=== PATIENT | male | born 2000 | race Two or more races ===

== ENCOUNTER 2022-12-26 15:28 | Outpatient (REF) | payer MEDICAID, SELFPAY ==
[2022-12-26 17:20] LABS: Hematocrit 43.7 % (42.0-52.0); Hemoglobin 14.3 g/dl (14.0-18.0); Mean Corpuscular HGB Conc 32.7 g/dl (31.0-36.0); Mean Corpuscular Hemoglobin 27.5 pg (27.0-33.0); Mean Platelet Volume 9.1 fL (9.4-12.4); Platelet Count 333 X10*3/uL (160-400); Red Cell Distribution Width 13.2 % (11.0-16.0); White Blood Count 4.9 X10*3/uL (4.8-10.8)
[2022-12-26 17:58] LABS: C Reactive Protein 1.34 mg/dL (< or = 0.50)
[2022-12-26 18:14] LABS: TSH reflex Free T4 0.64 uIU/mL (0.32-4.0)
[2022-12-26 18:29] LABS: Vitamin B12 608 pg/mL (200-900)
[2022-12-31 14:42] LABS: H Pylori Breath Test Negative (Negative)
[2023-01-02 16:38] LABS: Vitamin D 25-OH, D2 <4 ng/mL; Vitamin D 25-OH, D3 7 ng/mL; Vitamin D 25-OH, Total 7 ng/mL (30-100)
== END 2022-12-26 15:29 | disposition home or self-care (01) ==
LOC: HO.LAB 15:28
PROVIDERS: PCP Family Medicine; Referring Provider Family Medicine; Visit Provider Nurse Practitioner Family
DX: K58.2 Mixed irritable bowel syndrome (principal); K21.9 Gastro-esophageal reflux disease without esophagitis; E55.9 Vitamin D deficiency, unspecified; R14.0 Abdominal distension (gaseous); K64.9 Unspecified hemorrhoids; Z11.0 Encounter for screening for intestinal infectious diseases
CPT/HCPCS: 36415; 82306; 82607; 82746; 83013; 84443; 85027; 86140; 99202

== ENCOUNTER 2023-01-08 18:07 | Outpatient (REF) | payer MEDICAID, SELFPAY ==
[2023-01-08 19:58] LABS: Leukocytes Stool Qualitative NEGATIVE (NEGATIVE)
[2023-01-09 08:57] LABS: CDiff Gene PCR NEGATIVE (Negative)
[2023-01-09 09:38] LABS: Adenovirus F 40/41 Not Detected (Not Detect.); Astrovirus Not Detected (Not Detect.); Campylobacter Not Detected (Not Detect.); Cryptosporidium Not Detected (Not Detect.); Cyclospora cayetanensis Not Detected (Not Detect.); E. coli EAEC Not Detected (Not Detect.); E. coli EPEC Not Detected (Not Detect.); E. coli ETEC Not Detected (Not Detect.); E. coli STEC Not Detected (Not Detect.); Entamoeba histolytica Not Detected (Not Detect.); Giardia lamblia Not Detected (Not Detect.); Norovirus GI/GII Not Detected (Not Detect.); Plesiomonas shigelloides Not Detected (Not Detect.); Rotavirus A Not Detected (Not Detect.); Salmonella Not Detected (Not Detect.); Sapovirus Not Detected (Not Detect.); Shigella sp./EIEC Not Detected (Not Detect.); Vibrio Not Detected (Not Detect.); Vibrio Cholerae Not Detected (Not Detect.); Yersinia enterocolitica Not Detected (Not Detect.)
[2023-01-16 20:38] LABS: Calprotectin, Fecal 2920 mcg/g
== END 2023-01-08 18:08 | disposition home or self-care (01) ==
LOC: HO.LNP 18:07
PROVIDERS: Nurse Practitioner; Visit Provider Nurse Practitioner Family
DX: K62.5 Hemorrhage of anus and rectum (principal); R79.82 Elevated C-reactive protein (CRP); R19.7 Diarrhea, unspecified
CPT/HCPCS: 83993; 87177; 87209; 87493; 87507; 89055

== ENCOUNTER 2023-01-09 11:37 | Outpatient (REF) | payer MEDICAID, SELFPAY ==
[2023-01-09 12:53] LABS: Hematocrit 40.6 % (42.0-52.0); Hemoglobin 13.3 g/dl (14.0-18.0); Mean Corpuscular HGB Conc 32.8 g/dl (31.0-36.0); Mean Corpuscular Hemoglobin 27.8 pg (27.0-33.0); Mean Corpuscular Volume 84.9 fL (80.0-98.0); Mean Platelet Volume 9.3 fL (9.4-12.4); Platelet Count 305 X10*3/uL (160-400); Red Blood Count 4.78 X10*6/uL (4.60-5.80); Red Cell Distribution Width 13.4 % (11.0-16.0); White Blood Count 4.9 X10*3/uL (4.8-10.8)
[2023-01-09 13:14] LABS: Lipase 12 U/L (8-78)
[2023-01-14 11:39] LABS: Transglutaminase Ab IgG <1.0 U/mL; Transglutaminase IgA <1.0 U/mL
== END 2023-01-09 11:38 | disposition home or self-care (01) ==
LOC: HO.LAB 11:37
PROVIDERS: PCP Family Medicine; Visit Provider Nurse Practitioner Family
DX: R10.9 Unspecified abdominal pain (principal); R79.82 Elevated C-reactive protein (CRP); K21.9 Gastro-esophageal reflux disease without esophagitis; K62.5 Hemorrhage of anus and rectum; R19.7 Diarrhea, unspecified; K64.9 Unspecified hemorrhoids; E66.01 Morbid (severe) obesity due to excess calories
CPT/HCPCS: 36415; 83690; 85027; 86364; 99212

== ENCOUNTER 2023-01-23 09:06 | Outpatient (REF) | payer MEDICAID, SELFPAY ==
--- NOTE | ~2023-01-23 | CT_ITS ---
EXAMINATION: CT ABDOMEN AND PELVIS WITH CONTRAST CLINICAL INFORMATION: Abdominal pain COMPARISON: None TECHNIQUE: Multidetector volumetric images were obtained from the superior aspect of the liver through the pubic symphysis following administration 85 mL of Omnipaque 350 intravenous contrast. Sagittal and coronal reformatted images were obtained on the technologist's workstation. Oral contrast: Yes This CT examination was performed using dose optimization techniques as appropriate, variously including the following: *Automated exposure control *Adjustment of mA and/or kV according to patient size (this includes techniques or standardized protocols for targeted exams where dose is matched to indication/reason for exam; i.e. extremities or head) *Use of iterative reconstruction technique DLP: 675 mGy-cm FINDINGS: LUNG BASES: The visualized lung bases are unremarkable. LIVER, GALLBLADDER, AND BILIARY TREE: The liver is normal in size, shape, and attenuation. No focal hepatic lesion or biliary ductal dilatation is present. The gallbladder is unremarkable with no evidence of radiopaque gallstones, gallbladder wall thickening, or obvious pericholecystic inflammatory changes. PANCREAS: There is a small 2 mm low-attenuation lesion in the body of the pancreas. This may represent a small cyst, axial image 27 series 3 coronal reconstructed image 46. The pancreas is otherwise normal. SPLEEN: Unremarkable. ADRENAL GLANDS: Unremarkable. KIDNEYS AND URETERS: The kidneys are normal in size, shape, and attenuation. No hydronephrosis, hydroureter, or calculi seen. No perinephric stranding. BLADDER: Not optimally distended. GASTROINTESTINAL TRACT: There is question of mild wall thickening of the proximal small bowel in the left abdomen. The small and large bowel are otherwise unremarkable. The appendix is unremarkable. No ascites. ABDOMINAL WALL: No significant hernia is appreciated. LYMPH NODES: There are prominent small bowel mesentery lymph nodes. Larger lymph nodes are upper normal in size. No other adenopathy. No ascites. VASCULAR: Unremarkable. PELVIC VISCERA: Unremarkable. OSSEOUS STRUCTURES: Unremarkable. CT/CT abdomen pelvis w IV con IMPRESSION: Question mild wall thickening of the proximal small bowel in the left abdomen. Prominent small bowel mesentery lymph nodes. Question small 2 mm cyst in the body of the pancreas. This could be further evaluated with MR with MRCP. Fleischner guidelines were followed.
[2023-01-23] MEDS: Barium Sulfate Oral (Vanilla) 450 ML ORAL.SUSP 900 ML PO (11:40)
[2023-01-23] MEDS: iohexoL 350 MG/ML 100 ML INFUS..BTL 85 ML IV (11:40)
== END 2023-01-23 09:07 | disposition home or self-care (01) ==
LOC: HO.CT 09:06
PROVIDERS: PCP Family Medicine; Visit Provider Nurse Practitioner Family
DX: R10.9 Unspecified abdominal pain (principal); R19.7 Diarrhea, unspecified; R79.82 Elevated C-reactive protein (CRP)
CPT/HCPCS: 74177; Q9967

== ENCOUNTER 2023-01-26 14:19 | Outpatient (REF) | payer MEDICAID, SELFPAY ==
[2023-01-26 16:26] LABS: Blood Urea Nitrogen 13 mg/dL (9-16); Estimated Glomerular Filt Rate > 60
[2023-01-27 14:07] LABS: HBS Num1 1.15 mIU/mL (0-7.99); HBc Num1 0.09 S/CO (0.00-0.79); HIV AB/AG Nonreactive (Nonreactive); HIV Num 1 0.06 S/CO (0.00-0.99); Hepatitis A Antibody IgM 0.15 Index (0-0.79); Hepatitis B Core Antibody Nonreactive (Nonreactive); Hepatitis B Surface Antigen Negative (Negative); ~HepC Num1 0.13 S/CO (0.00-0.79); ~Hepatitis A Antibody IgM Nonreactive (Nonreactive); ~Hepatitis B Surface Antibody NONREACTIVE (Nonreactive); ~Hepatitis C Antibody Nonreactive (Nonreactive)
[2023-01-28 14:14] LABS: TS Negative Control Passed; TS Panel A 0; TS Panel B 6; TS Positive Control Acceptable; TSpotTB Borderline (Negative)
== END 2023-01-26 14:20 | disposition home or self-care (01) ==
LOC: HO.LAB 14:19
PROVIDERS: PCP Family Medicine; Visit Provider Nurse Practitioner Family
DX: Z11.4 Encounter for screening for human immunodeficiency virus [HIV] (principal); R10.11 Right upper quadrant pain; K62.5 Hemorrhage of anus and rectum; R19.7 Diarrhea, unspecified; R79.89 Other specified abnormal findings of blood chemistry; R79.82 Elevated C-reactive protein (CRP)
CPT/HCPCS: 36415; 82565; 84520; 86481; 86704; 86706; 86709; 86803; 87340; 87389; 99212

== ENCOUNTER 2023-02-03 09:57 | Day surgery (SDC) | payer MEDICAID, SELFPAY ==
[2023-01-29 12:43] VITALS: BMI 37.4
[2023-02-03 10:34] VITALS: BP 118/77; PULSE 68; RESP 18; TEMP 36.6; BMI 37.3
--- NOTE | 2023-02-03 10:38 | MHC.SHP ---
Pre-Procedural Eval Section A Date of Service: 02/03/23 Section B Chief Complaint: Elevated C-reactive protein (CRP),Disease of intes Details of Present Illness: diarrhea Relevant Family History (Specify if Yes): No Relevant Social History: None Present Medications: see Short Stay Collaborative assessment Medical History: Significant History (Asthma Obesity) History of Previous Operations: Relevant previous surgery/procedure and date(s) (History of hand surgery S/P eye surgery) Allergies: Allergies Allergy/AdvReac Type Severity Reaction Status Date / Time bees Allergy Severe Anaphylaxis Uncoded 01/29/23 12:48 Review of Systems Sugical H&P ROS: Negative: Constitution, Cardiovascular, Respiratory, Neurological, Psychiatric, Hem-Onc, Allergic/Immunologic, Gastrointestinal, Genitourinary, Musculoskeletal, Integumentary, Endocrine and Eyes/Ears/Nose/Throat Exam Surgical H&P Exam: Normal: HEENT, Normal: Heart, Normal: Lungs, Normal: Extremities, Normal: Abdomen, Normal: Skin and Normal: Neurological Plan Diagnosis/Plan: Unchanged I have reviewed the history and physical and performed a pertinent physical examination on my patient. No changes have occurred unless specified. Time Spent With Patient Time: Total time managing care of this patient today ____ minutes.
[2023-02-03] MEDS: Lactated Ringers 1,000 ML 50 ML IVCONT (11:07)
--- NOTE | 2023-02-03 11:33 | HO.ANESPROP2 ---
HPI - Anesthesia Eval Consult details Narrative: 22 M fir egd/colo PMFSH Active Problems Active Problems: All Active Problems (Updated 01/29/23 @ 12:37 by Anne Marie Ashley RN) Morbid obesity (Acute) Hemorrhoids (Acute) Diarrhea (Acute) Rectal bleeding (Acute) Elevated C-reactive protein (CRP) (Acute) Past Medical History Medical History Asthma Obesity Family History Family History Mother HTN (hypertension) Diabetes Anemia Maternal Grandmother Anemia Diabetes HTN (hypertension) Lung cancer Family history of problems with anesthesia: No Surgical History Surgical History History of hand surgery S/P eye surgery History of Problems with Anesthesia: No Social History Social History Household Members: Significant Other and Children Alcohol intake: never Patient Tobacco Use Status: Never used Tobacco Use of substances other than those prescribed or required for medical reasons: No Are you DNR?: No Advance Directives: No Advance Directives Information Provided: Yes Meds Allergies Allergy/AdvReac Type Severity Reaction Status Date / Time bees Allergy Severe Anaphylaxis Uncoded 01/29/23 12:48 Active Medications: Current Medications Lactated Ringer's (Lr) 1,000 mls @ 50 mls/hr IVCONT .Q20H MELINDA Last Admin: 02/03/23 11:07 Dose: 50 mls/hr Home Medications Medication Instructions Recorded Confirmed Last Taken Type albuterol sulfate 90 mcg/actuation 2 puff inhalation Q4H PRN wheezing 12/26/22 02/03/23 Unknown History aerosol inhaler (Ventolin HFA) blood pressure test kit-large #1 ea 12/26/22 Unknown History fluticasone propionate 110 0 mcg inhalation PRN Shortness Of 12/26/22 Unknown History mcg/actuation HFA aerosol inhaler Breath Or Wheezing (Flovent HFA) Exam Exam Date and Time: February 03, 2023 1133 Height,Weight and Vital Signs: Height 6 ft 1 in Weight 283 lb Last Vital Signs Temp 97.9 F 02/03/23 10:34 Pulse 68 02/03/23 10:34 Resp 18 02/03/23 10:34 BP 118/77 02/03/23 10:34 Airway Mallampati Class: I TM Dist: >3cm Neck ROM: Full Loose/Missing/Broken Teeth: No Assessment and Plan Assessment Anesthesia Assessment: Anesthesia Plan Discussed and Chart Reviewed Final Anesthetic Review Family History of Problems with Anesthesia: No History of Problems with Anesthesia: No NPO: Yes ASA Class: II Final Preanesthetic Review: No Changes in Pt Med Stat, Meds/Allgs Chart Reviewed, Consent Obtained/Reviewed and Anes Risks/Benef Reviewed Patient Risk: Intermediate Procedure Risk: Low Anesthetic Plan Anesthetic Plan: MAC: Disposition: Standard PACU
--- NOTE | 2023-02-03 11:33 | W.PM.OPN ---
Operative Note Operative Note Date of Service: 02/03/23 Narrative: Operative Information Procedure Description: EGD, Colonoscopy Indication: diarrhea Anesthesia: MAC FLEXIBLE TRANSORAL UPPER GASTROINTESTINAL ENDOSCOPY AND COLONOSCOPY PROCEDURE NOTE UPPER ENDOSCOPY Consent: Indications for the procedure and potential complications of bleeding, perforation, reaction to medications and missed diagnosis were discussed with the patient and informed consent was obtained. Instrument: Olympus GIF H 190 J mid size upper endoscope Monitoring: Vital signs and clinical assessment, continuous EKG monitoring, Pulse oximetry, Carbon Dioxide monitoring and blood pressure monitoring were done throughout the procedure. Procedure: The patient was placed in the left lateral decubitis position and pre-procedure medications were administered and a bite block was placed. The endoscope was inserted into the mouth and advanced under direct vision to the third part of duodenum. A careful inspection was made as the upper endoscope was withdrawn including a retroflexed examination of the proximal stomach; Findings and interventions are described below. Findings: Larynx:normal Esophagus: GE junction at 40 cm, diaphragm hiatus at 42 cm, consistent with 2 cm sliding hiatal hernia, islands of salmon pink tissue noted suspicious for barretts esophagus, bx taken Stomach: Patchy erythema. Biopsies were obtained. Grade 2 flap valve on retroflexed examination of the cardia. Duodenum: Normal bulb and descending duodenum, bx taken Intervention: Biopsies as noted above COLONOSCOPY Instrument: Olympus variable stiffness pediatric scope 190L Colonoscopy Monitoring: Vital signs and clinical assessment, continuous EKG monitoring, Pulse oximetry, Carbon Dioxide monitoring and blood pressure monitoring were done throughout the procedure. Colon withdrawal time was 13 minutes. Procedure: The patient was placed in the left lateral decubitis position and pre-procedure medications were administered. After a digital rectal examination of the ano-rectum, the video colonoscope was inserted into the rectum and advanced through the colon to the cecum/TI. The colonoscope was slowly withdrawn in a retrograde panoramic fashion and the colon mucosa was carefully examined including a retroflexed view of the rectum. Findings and interventions are described below. Procedure Difficulty: Findings: Terminal Ileum- moderate severe erosive ileitis, bx taken Patchy erythema in colon with mild edema, bx taken from right colon, transverse/left and rectum Cecum:normal Ascending Colon: normal Transverse Colon -normal Descending Colon:normal Sigmoid Colon: normal Rectum: Retroflexion with small internal hemorrhoids, grade I, granular mucosa with edema and micro abscesses, Anorectum - normal Colon preparation: [place] Bowel Preparation Scale Right colon; 2 Transverse colon: 2 Left colon; 1-2 (0 = Unprepared colon segment with mucosa not seen due to solid stool that cannot be cleared. 1 = Portion of mucosa of the colon segment seen, but other areas of the colon segment not well seen due to staining, residual stool and/or opaque liquid. 2 = Minor amount of residual staining, small fragments of stool and/or opaque liquid, but mucosa of colon segment seen well. 3 = Entire mucosa of colon segment seen well with no residual staining, small fragments of stool or opaque liquid) Impression and Post Procedure Diagnosis: Endoscopy Findings: gastritis hiatal hernia possible barretts esophagus Colonoscopy Findings: erosive ileitis patchy colitis internal hemorrhoids Plan: Await Pathology results, appearances seem most consistent with crohns disease Repeat Colonoscopy for screening aged 45 or earlier if clinically indicated High fiber diet leaflet avoid straining at stool, epsom salts and sitz bath, anusol supps or cream can discuss treatment options with him, can start with budesonide and transition to biologic or imuran/6 MP. Pentasa is another option. Above findings were reviewed with the patient and relevant handouts were provided if indicated.
[2023-02-03 12:31] VITALS: BP 130/72; PULSE 75; RESP 16; TEMP 36.6; O2SAT 100
[2023-02-03 12:46] VITALS: BP 147/92; PULSE 76; RESP 16; TEMP 36.6; O2SAT 97
[2023-02-03 13:01] VITALS: BP 147/91; PULSE 69; RESP 16; TEMP 36.3; O2SAT 99
[2023-02-03 14:53] LABS: CDiff Gene PCR NEGATIVE (Negative)
[2023-02-03 15:15] LABS: Adenovirus F 40/41 Not Detected (Not Detect.); Astrovirus Not Detected (Not Detect.); Campylobacter Not Detected (Not Detect.); Cryptosporidium Not Detected (Not Detect.); Cyclospora cayetanensis Not Detected (Not Detect.); E. coli EAEC Not Detected (Not Detect.); E. coli EPEC Not Detected (Not Detect.); E. coli ETEC Not Detected (Not Detect.); E. coli STEC Not Detected (Not Detect.); Entamoeba histolytica Not Detected (Not Detect.); Giardia lamblia Not Detected (Not Detect.); Norovirus GI/GII Not Detected (Not Detect.); Plesiomonas shigelloides Not Detected (Not Detect.); Rotavirus A Not Detected (Not Detect.); Salmonella Not Detected (Not Detect.); Sapovirus Not Detected (Not Detect.); Shigella sp./EIEC Not Detected (Not Detect.); Vibrio Not Detected (Not Detect.); Vibrio Cholerae Not Detected (Not Detect.); Yersinia enterocolitica Not Detected (Not Detect.)
== END 2023-02-03 13:29 | disposition home or self-care (01) ==
PROVIDERS: PCP Family Medicine; Visit Provider Internal Medicine Gastroenterology
PROC: (CPT 45380; principal; 2023-02-03 11:10)
DX: K29.70 Gastritis, unspecified, without bleeding (principal); K44.9 Diaphragmatic hernia without obstruction or gangrene; K52.89 Other specified noninfective gastroenteritis and colitis; R19.7 Diarrhea, unspecified; K64.8 Other hemorrhoids; R79.82 Elevated C-reactive protein (CRP)
CPT/HCPCS: 45380; 43239; 87493; 87507; 88305; 88342

== ENCOUNTER → 2023-02-17 15:18 | Outpatient (BNVA) | payer MEDICAID, SELFPAY | PROVIDERS: PCP Family Medicine; Visit Provider Nurse Practitioner Family | DX: K50.80 Crohn's disease of both small and large intestine without complications (principal); R19.7 Diarrhea, unspecified; K62.5 Hemorrhage of anus and rectum | CPT/HCPCS: 99212 ==

== ENCOUNTER 2023-07-16 16:02 | Outpatient (REF) | payer MEDICAID, SELFPAY ==
--- NOTE | 2023-07-16 16:06 | EMG_ITS ---
Please see EMG / Nerve Conduction Report. MTDD
--- NOTE | 2023-07-16 16:08 | P.EMGPH_ITS ---
Physiatry - EMG/NCS EMG/NCS Chief complaint: Left hand/arm numbness for 2 weeks only. Patient denied neck pain. Reason for referral: Evaluate for Carpal Tunnel Syndrome Referred by: Dr. Woodward Procedure done: left upper extremity NCS/EMG Precautions and/or limitations: None The limb temperature was monitored continuously and remained between 32-36 degrees C during the performance of the NCS. Nerve Conduction Studies Anti Sensory Summary Table ?Stim Site NR Onset (ms) Norm Onset (ms) Peak (ms) Norm Peak (ms) O-P Amp (?V) Norm O-P Amp Site1 Site2 Delta-0 (ms) Dist (cm) Alex (m/s) Norm Alex (m/s) Left Median Anti Sensory (2nd Digit) Wrist ? 1.6 2.4 <3.6 28.6 >10 Wrist 2nd Digit 1.6 14.0 88 Left Radial Anti Sensory (Thumb) Forearm ? 1.6 2.0 <3.1 20.8 Forearm Thumb 1.6 0.0 Left Ulnar Anti Sensory (5th Digit) Wrist ? 2.6 3.0 <3.7 24.6 >15.0 Wrist 5th Digit 2.6 14.0 54 Motor Summary Table ?Stim Site NR Onset (ms) Norm Onset (ms) O-P Amp (mV) Norm O-P Amp A iAmp (mV) Amp (1st) (%) Site1 Site2 Delta-0 (ms) Dist (cm) Alex (m/s) Norm Alex (m/s) Left Median Motor (Abd Poll Brev) Wrist ? 3.7 <3.9 3.9 >4.5 4.9 100.0 Elbow Wrist 4.4 24.0 55 >45 Elbow ? 8.1 2.6 3.4 66.7 Left Ulnar Motor (Abd Dig Minimi) Wrist ? 2.3 <3.0 6.6 >5 8.2 100.0 B Elbow Wrist 4.0 24.0 60 A >45 B Elbow ? 6.3 2.2 2.8 33.3 A Elbow B Elbow 1.1 10.0 91 >45 A Elbow ? 7.4 1.9 2.7 28.8 EMG ?Side Muscle Nerve Root Ins Act Fibs Psw Amp Dur Poly Recrt Int Pat Comment Left 1stDorInt Ulnar C8-T1 Nml Nml Nml Nml Nml 0 Nml Complete Left FlexCarRad Median C6-7 Nml Nml Nml Nml Nml 0 Nml Complete Left Biceps Musculocut C5-6 Nml Nml Nml Nml A Nml 0 Nml Complete Left Triceps Radial C6-7-8 Nml Nml Nml Nml Nml 0 Nml Complete Left Deltoid Axillary C5-6 Nml Nml Nml Nml Nml 0 Nml Complete Paraspinal EMG ?Side Muscle Nerve Root Ins Act Fibs Psw Comment Left Cervical Upper Rami Nml Nml Nml Left Cervical Mid Rami Nml Nml Nml Left Cervical Lower Rami Nml Nml Nml FINDINGS: Left median motor nerve showed normal distal latency, small amplitude and normal conduction velocity. Possible Rodriguez Martha anastomosis seen, which is a normal anatomic variant. All other nerves tested were within normal. Concentric needle EMG was performed in selected muscles of the left upper extremity and cervical paraspinals. Study did not reveal signs of electric abnormalities as shown in the table below. IMPRESSION: 1. This is an abnormal study. 2. Possible left median neuropathy affecting motor fibers only versus acute cervical radiculopathy. CLINICAL COMMENT: Since symptoms have only been for 2 weeks, normal findings on NCS/EMG are likely to be found if complete Wallerian degeneration has not happened. If symptoms persists, please send for repeat NCS/EMG. Further clinical correlation recommended. Thank you for your kind referral. Suzanne Reynolds MD, KIMBERLY Board Certified, [place] [employer] and Rehabilitation (ABPMR) Board Certified, [place] Board of Electrodiagnostic Medicine (ABEM)
== END 2023-07-16 16:03 | disposition home or self-care (01) ==
LOC: HO.NEURO 16:02
PROVIDERS: PCP Family Medicine; Visit Provider Family Medicine
DX: R20.0 Anesthesia of skin (principal); R20.2 Paresthesia of skin
CPT/HCPCS: 95860; 95886; 95907; 95909

== ENCOUNTER → 2023-07-16 16:02 | Outpatient (BNV) | payer MEDICAID, SELFPAY | PROVIDERS: PCP Family Medicine; Visit Provider Physical Medicine & Rehabilitation | DX: G56.12 Other lesions of median nerve, left upper limb (principal); R20.0 Anesthesia of skin; R20.2 Paresthesia of skin | CPT/HCPCS: 95886; 95909 ==

== ENCOUNTER 2023-08-12 14:59 | Outpatient (AMB) | payer MEDICAID, SELFPAY ==
--- NOTE | 2023-08-12 15:06 | A.OFFVIS_ITS ---
Intake Vital Signs 08/12/23 15:08 Height 6 ft 1 in Weight 295 lb BMI 38.9 BP 142/93 H Blood Pressure Location Lt brachial Position Sitting Pulse 86 Intake Visit Reasons: discuss crohns tx Intake Note: Patient follow up for Crohns Patient cc: abdominal pain, and rectal bleeding. Denies any other GI issues. 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 Tolerating with desonide well. Rectal bleeding Crohn disease Diagnosed with Crohn's disease. Patient is tolerating budesonide well. Discussed with patient diet choices. I will see patient in 1 month, sooner on as needed basis. Patient is agreeable to this plan and verbalizes understanding of instructions. He was given the opportunity to ask questions and all questions answered. ? Thank you for allowing me to participate his care Plan Orders Orders [facility] Today K50.90 TODAY'S VISIT Patient is here today for follow-up. Patient has missed his appointment in February. Patient was diagnosed with Crohn's disease back in January and was placed on budesonide for 3 months with taper each month. Patient was placed on with dust mite right after colonoscopy by Dr. James. Patient reports that he was feeling better so he did not make to his appointment. Somehow patient reports that pharmacy filled his script even though was only ordered for 3 months with no refill. Patient reports that he stopped taking it only few weeks ago. His symptoms of abdominal discomfort, cramping and occasional diarrhea with blood tinged stool started again. Patient is here today to follow-up and start treatment for Crohn's. Patient did not had CT enterography to rule out involvement in small bowel. Procedure was canceled and will be booked today. Patient denies any nausea or vomiting. Patient did gain 10 lb since last visit most likely due to glucocorticoid therapy. [facility] Medical History Asthma Obesity Surgical History History of hand surgery S/P eye surgery Family History Mother HTN (hypertension) Diabetes Anemia Maternal Grandmother Anemia Diabetes HTN (hypertension) Lung cancer Social History Household Members: Significant Other and Children Alcohol intake: never Patient Tobacco Use Status: Never used Tobacco Review of Systems Const Denies weight gain and Denies weight loss ENT Reports no additional complaints, Denies dysphagia and Denies odynophagia Card Reports no additional complaints Resp Reports no additional complaints GI Reports abdominal pain, Denies belching, Denies melena, Denies bloating, Reports hematochezia, Denies change in bowel habits, Denies dysphagia, Denies excessive flatus, Denies dyspepsia, Denies heartburn, Denies diarrhea, Reports loose stools, Denies nausea, Denies odynophagia and Denies vomiting Reports no additional complaints Musc Reports no additional complaints Neuro Reports no additional complaints Psych Reports no additional complaints Endo Reports no additional complaints Physical Exam Vital Signs: Last Vital Signs Pulse 86 08/12/23 15:08 BP 142/93 H 08/12/23 15:08 BMI result Body Mass Index 38.9 Const General: healthy appearing, no acute distress and well developed Nutritional Appearance: obese Orientation/consciousness: patient oriented x3 HEENT Head: Yes normal to inspection, Yes normocephalic and Yes atraumatic Face and sinus: Yes normal facial exam Mouth: Normal oral and palatal mucosa present Throat: Yes posterior oropharynx normal, Yes tonsils normal and Yes uvula midline Eyes General: appearance normal, both eyes and all related structures Neck Neck: Yes normal visual inspection, Yes full ROM and Yes trachea midline Thyroid: Thyroid normal Resp Effort & Inspection: normal respiratory effort, able to speak in complete sentences, no tracheal deviation and symmetric chest movement Auscultation: clear to auscultation bilaterally Cardio Rate: regular rate Heart sounds: S1 normal heart sound present and S2 normal heart sound present GI Inspection: Yes normal to inspection, No distended and Yes obesity Palpation (GI): Soft to palpation, not firm, nontender and No hepatosplenomegaly present Auscultation: normal bowel sounds General: Yes no CVA tenderness Back/Spine/Pelvis Back: no CVA tenderness Skin General skin exam: elasticity normal, turgor normal and dry skin Neuro General: patient oriented x3 Psych Appearance: grossly normal Mental Status: mental status grossly normal Speech and movement: Normal speech and movement present Assessment & Plan Assessment & Plan (1) Crohn disease: Code(s): K50.90 - Crohn's disease, unspecified, without complications Qualifiers: Gastrointestinal tract location: large intestine Digestive disease complication type: with rectal bleeding Qualified Code(s): K50.111 - Crohn's disease of large intestine with rectal bleeding Plan: Will order CT enterography again. Will start patient on sulfasalazine twice a day. Patient will be started on 1 g twice a day. Patient reports that he is working and he cannot commit to take it 3 times a day. Patient does not want any injectables. I offered Humira and other biologics, however he does not want to have any injections. Patient will return in in 5 weeks to reassess. He will call our office if he will continue have rectal bleed and abdominal pain and discomfort. Discussed with patient the importance of staying on this medication and adhering to diet regimen. Patient is present during visit. Both patient and his are agreeable to this plan and verbalize understanding of instructions. They were given the opportunity to ask questions and all questions answered. Thank you for allowing me to participate in his care Orders: Orders CT enterography 08/12/23 K50.90 - Crohn's disease, unspecified, without c omplications, R79.82 - Elevated C-reactive protein (CRP) Medications: New sulfasalazine give with food (meal/snack) 1 g (2 x 500 mg) PO BID 120 tabs 2RF K50.90 - Crohn's disease, unspecified, without complications Coding Level of Care Code Est Pt Level 4 (06883) Diagnoses Crohn's disease of large intestine with rectal bleeding K50.111 Gastrointestinal tract location: large intestine Digestive disease complication type: with rectal bleeding Time Spent (min) 40 Comment 25 minutes spent with patient and additional 15 minutes spent reviewing his records
[2023-08-12 15:08] VITALS: BP 142/93; PULSE 86; BMI 38.9
== END 2023-08-12 15:55 | disposition home or self-care (01) ==
PROVIDERS: PCP Family Medicine; Visit Provider Nurse Practitioner Family
DX: K50.111 Crohn's disease of large intestine with rectal bleeding (principal)
CPT/HCPCS: 99214

== ENCOUNTER → 2023-08-12 14:59 | Outpatient (BNVA) | payer MEDICAID, SELFPAY | PROVIDERS: PCP Family Medicine; Visit Provider Nurse Practitioner Family | DX: K50.111 Crohn's disease of large intestine with rectal bleeding (principal) | CPT/HCPCS: 99212 ==

== ENCOUNTER 2023-09-14 14:29 | Outpatient (REF) | payer MEDICAID, SELFPAY ==
--- NOTE | ~2023-09-14 | CT_ITS ---
EXAMINATION: CT ENTEROGRAPHY ABDOMEN AND PELVIS WITH CONTRAST CLINICAL INFORMATION: Crohn's disease COMPARISON: Previous CT of the abdomen and pelvis December 2022 TECHNIQUE: Study performed with oral VoLumen (1350 mL) and 480 mL of water to distend the abdomen. The patient was injected with 85 mL Omnipaque 350 intravenous contrast which was administered without adverse effect. Coronal and sagittal reformatted images were obtained at the technologist's workstation. This CT examination was performed using dose optimization techniques as appropriate, variously including the following: *Automated exposure control *Adjustment of mA and/or kV according to patient size (this includes techniques or standardized protocols for targeted exams where dose is matched to indication/reason for exam; i.e. extremities or head) *Use of iterative reconstruction technique DLP: 823 mGy-cm FINDINGS: GASTROINTESTINAL FINDINGS: Stomach: Well-distended and normal in appearance. Small intestine: There is again question of mild wall thickening and enhancement of a short segment of the proximal small bowel in the left upper quadrant, for example axial image 36-46 series 7 and coronal reconstructed image 32 series 4. Is question of slight tethering of loops of small bowel. Appearance is questionable for active inflammatory bowel disease or other cause of enteritis. There is prominent fat in the wall of the terminal ileum for example coronal reconstructed image 39-45 series 4. This is a nonspecific finding but can be seen in changes from old inflammatory enteritis. Large intestine: Well-distended and normal in appearance. No perirectal changes demonstrated. The appendix is normal. Additional findings: No abnormal enhancement of the vasa recta. Small bowel mesentery lymphadenopathy which appears prominent but decreased from December 2022. No abdominal abscess or fistulous tract demonstrated. ABDOMINAL AND PELVIC CT FINDINGS: Liver, gallbladder, biliary tract: Normal Pancreas: Question small cyst in the body of the pancreas measuring 2 to 3 mm axial image 29 series 7. This is stable. Spleen: Normal Adrenal glands and kidneys: Normal Ureters and bladder: Normal Lymphovascular structures: There are prominent small bowel mesentery lymph nodes. These appear decreased in size from December 2022 exam. No ascites. Normal vascular structures. Bones: Normal Lung bases: Normal. Small umbilical hernia containing fat. CT/CT enterography IMPRESSION: Mild wall thickening and mucosal enhancement and slightly tethered loops of proximal small bowel in the left upper quadrant questionable for active enteritis or inflammatory bowel disease. There is small bowel mesentery lymphadenopathy which is prominent however decreased from December 2022 exam. Question small cyst in the body of the pancreas measuring 2 x 3 mm. Again this could be better evaluated with MR of the pancreas with MRCP if clinically indicated.
[2023-09-14] MEDS: Sorbitol/Mannit/Xanth Imaging 500 ML LIQUID 1500 ML PO (17:14)
[2023-09-14] MEDS: iohexoL 350 MG/ML 100 ML INFUS..BTL 85 ML IV (17:14)
== END 2023-09-14 14:30 | disposition home or self-care (01) ==
LOC: HO.CT 14:29
PROVIDERS: PCP Family Medicine; Visit Provider Nurse Practitioner Family
DX: K50.90 Crohn's disease, unspecified, without complications (principal); R79.82 Elevated C-reactive protein (CRP)
CPT/HCPCS: 74177; Q9967

== ENCOUNTER 2023-09-16 16:01 | Outpatient (AMB) | payer MEDICAID, SELFPAY ==
--- NOTE | 2023-09-16 16:09 | MHC.OFFVIS ---
Intake Vital Signs 09/16/23 16:10 Height 6 ft 1 in Weight 284 lb 6.341 oz BMI 37.5 BP 143/82 H Blood Pressure Location Lt brachial Position Sitting Pulse 100 Intake Visit Reasons: 5 week follow up Intake Note: Stefan presents in the office as a 5 week follow up. CC: Ct scan a few days ago - just here for the results. Allergies bees Allergy (Severe, Uncoded 09/16/23 16:11) Anaphylaxis HPI 5 week follow up HPI Details LAST VISIT Crohn disease Will order CT enterography again. Will start patient on sulfasalazine twice a day. Patient will be started on 1 g twice a day. Patient reports that he is working and he cannot commit to take it 3 times a day. Patient does not want any injectables. I offered Humira and other biologics, however he does not want to have any injections. Patient will return in in 5 weeks to reassess. He will call our office if he will continue have rectal bleed and abdominal pain and discomfort. Discussed with patient the importance of staying on this medication and adhering to diet regimen. Patient is present during visit. Both patient and his are agreeable to this plan and verbalize understanding of instructions. They were given the opportunity to ask questions and all questions answered. ? Thank you for allowing me to participate in his care Plan Orders Orders CT enterography 08/12/23 K50.90, R79.82 Medications New sulfasalazine give with food (meal/snack) 1 g (2 x 500 mg) PO BID 120 tabs 2RF K50.90 TODAY'S VISIT Patient is here today for follow-up and to discuss CT enterography results. Patient is accompanied by his . CT enterography confirms inflammatory bowel disease in the small bowel. Patient states that he is taking sulfasalazine, however he has not been very consistent. Patient reports that he works and frequently gets up early to go to work. His has to bring him the medication and snack so he can take it twice a day. Patient feels frustrated. Would like to continue treatment. Originally was very skeptical of injectables, however he is agreeing to take skyrizi. I did talk to him about in the beginning he would require come in in weekly for infusions, however after 3 infusion he would only need to inject every 12 weeks. Patient will need to be educated. Will contact local rep for Education. [facility] Medical History Obesity Asthma Surgical History Hx of colonoscopy History of esophagogastroduodenoscopy (EGD) History of hand surgery S/P eye surgery Family History Mother HTN (hypertension) Diabetes Anemia Maternal Grandmother Anemia Diabetes HTN (hypertension) Lung cancer Social History Household Members: Significant Other and Children Alcohol intake: never Patient Tobacco Use Status: Never used Tobacco Review of Systems Const Denies weight gain and Denies weight loss ENT Reports no additional complaints, Denies dysphagia and Denies odynophagia Card Reports no additional complaints Resp Reports no additional complaints GI Denies abdominal pain, Denies belching, Denies melena, Denies bloating, Denies change in bowel habits, Denies dysphagia, Denies excessive flatus, Denies dyspepsia, Denies heartburn, Denies diarrhea, Denies loose stools, Denies nausea, Denies odynophagia and Denies vomiting Reports no additional complaints Musc Reports no additional complaints Neuro Reports no additional complaints Psych Reports no additional complaints Endo Reports no additional complaints Physical Exam Vital Signs: Last Vital Signs Pulse 100 09/16/23 16:10 BP 143/82 H 09/16/23 16:10 BMI result Body Mass Index 37.5 Const General: healthy appearing, no acute distress and well developed Nutritional Appearance: obese Orientation/consciousness: patient oriented x3 HEENT Head: Yes normal to inspection, Yes normocephalic and Yes atraumatic Face and sinus: Yes normal facial exam Mouth: Normal oral and palatal mucosa present Throat: Yes posterior oropharynx normal, Yes tonsils normal and Yes uvula midline Eyes General: appearance normal, both eyes and all related structures Neck Neck: Yes normal visual inspection, Yes full ROM and Yes trachea midline Thyroid: Thyroid normal Resp Effort & Inspection: normal respiratory effort, able to speak in complete sentences, no tracheal deviation and symmetric chest movement Auscultation: clear to auscultation bilaterally Cardio Rate: regular rate Heart sounds: S1 normal heart sound present and S2 normal heart sound present GI Inspection: Yes normal to inspection, No distended and Yes obesity Palpation (GI): Soft to palpation, not firm, nontender and No hepatosplenomegaly present Auscultation: normal bowel sounds General: Yes no CVA tenderness Back/Spine/Pelvis Back: no CVA tenderness Skin General skin exam: elasticity normal, turgor normal and dry skin Neuro General: patient oriented x3 Psych Appearance: grossly normal Mental Status: mental status grossly normal Results Reviewed Results Reviewed: CT ENTEROGRAPHY FINDINGS: GASTROINTESTINAL FINDINGS: Stomach: Well-distended and normal in appearance. Small intestine: There is again question of mild wall thickening and enhancement of a short segment of the proximal small bowel in the left upper quadrant, for example axial image 36-46 series 7 and coronal reconstructed image 32 series 4. Is question of slight tethering of loops of small bowel. Appearance is questionable for active inflammatory bowel disease or other cause of enteritis. There is prominent fat in the wall of the terminal ileum for example coronal reconstructed image 39-45 series 4. This is a nonspecific finding but can be seen in changes from old inflammatory enteritis. Large intestine: Well-distended and normal in appearance. No perirectal changes demonstrated. The appendix is normal. Additional findings: No abnormal enhancement of the vasa recta. Small bowel mesentery lymphadenopathy which appears prominent but decreased from December 2022. No abdominal abscess or fistulous tract demonstrated. ABDOMINAL AND PELVIC CT FINDINGS: Liver, gallbladder, biliary tract: Normal Pancreas: Question small cyst in the body of the pancreas measuring 2 to 3 mm axial image 29 series 7. This is stable. Spleen: Normal Adrenal glands and kidneys: Normal Ureters and bladder: Normal Lymphovascular structures: There are prominent small bowel mesentery lymph nodes. These appear decreased in size from December 2022 exam. No ascites. Normal vascular structures. Bones: Normal Lung bases: Normal. Small umbilical hernia containing fat. CT/CT enterography IMPRESSION: Mild wall thickening and mucosal enhancement and slightly tethered loops of proximal small bowel in the left upper quadrant questionable for active enteritis or inflammatory bowel disease. There is small bowel mesentery lymphadenopathy which is prominent however decreased from December 2022 exam. Question small cyst in the body of the pancreas measuring 2 x 3 mm. Again this could be better evaluated with MR of the pancreas with MRCP if clinically indicated. Assessment & Plan Assessment & Plan (1) Elevated C-reactive protein (CRP): Code(s): R79.82 - Elevated C-reactive protein (CRP) (2) Crohn disease: Code(s): K50.90 - Crohn's disease, unspecified, without complications Qualifiers: Gastrointestinal tract location: small intestine Digestive disease complication type: without complication Qualified Code(s): K50.00 - Crohn's disease of small intestine without complications Plan Patient is not compliant taking sulfasalazine. Spoke with LUIS EDUARDO Panchal who will contact local rep for skjeronimoizi. Patient will need liver profile with bilirubin before starting the treatment. He had hepatitis study done already as well as TB. Patient will follow-up in 2 months. If Skyrizi will be approved patient will require Education on self injections. He is aware that he will need to come in for IV infusions once a week x3 then his injections will be every 12 weeks. Both patient and are agreeable to this plan and verbalizes understanding of instructions. They were both given the opportunity to ask questions and all questions answered. Thank you for allowing me to participate in his care Orders: Orders Yelena IBD SGI 09/18/23 R10.9 - Unspecified abdominal pain Coding Level of Care Code Est Pt Level 4 (58645) Diagnoses Elevated C-reactive protein (CRP) R79.82 Crohn's disease of small intestine without complication K50.00 Gastrointestinal tract location: small intestine Digestive disease complication type: without complication Time Spent (min) 40 Comment 25 minutes spent with patient and additional 15 minutes spent reviewing his records
[2023-09-16 16:10] VITALS: BP 143/82; PULSE 100; BMI 37.5
== END 2023-09-16 16:41 | disposition home or self-care (01) ==
PROVIDERS: PCP Family Medicine; Visit Provider Nurse Practitioner Family
DX: R79.82 Elevated C-reactive protein (CRP) (principal); K50.00 Crohn's disease of small intestine without complications
CPT/HCPCS: 99214

== ENCOUNTER → 2023-09-16 16:01 | Outpatient (BNVA) | payer MEDICAID, SELFPAY | PROVIDERS: PCP Family Medicine; Visit Provider Nurse Practitioner Family | DX: K50.00 Crohn's disease of small intestine without complications (principal); R79.82 Elevated C-reactive protein (CRP) | CPT/HCPCS: 99212 ==

== ENCOUNTER 2023-11-04 15:58 | Outpatient (AMB) | payer MEDICAID, SELFPAY ==
--- NOTE | 2023-11-04 16:02 | MHC.OFFVIS ---
Intake Vital Signs 11/04/23 16:08 Height 6 ft 1 in Weight 284 lb BMI 37.5 BP 140/85 H Blood Pressure Location Lt brachial Position Sitting Pulse 101 H Intake Visit Reasons: 2 month follow up Intake Note: Stefan presents in the office as a 2 month follow up. CC: States that he is having all the above: constipation, diarrhea, acid reflux, pains in the stomach. Hotshot Superintendent Required: No Allergies bees Allergy (Severe, Uncoded 11/04/23 16:08) Anaphylaxis HPI 2 month follow up HPI Details LAST VISIT Elevated C-reactive protein (CRP) Crohn disease Plan Patient is not compliant taking sulfasalazine. Spoke with LUIS EDUARDO Panchal who will contact local rep for skyrizi. Patient will need liver profile with bilirubin before starting the treatment. He had hepatitis study done already as well as TB. Patient will follow-up in 2 months. If Skyrizi will be approved patient will require Education on self injections. He is aware that he will need to come in for IV infusions once a week x3 then his injections will be every 12 weeks. Both patient and are agreeable to this plan and verbalizes understanding of instructions. They were both given the opportunity to ask questions and all questions answered. ? TODAY'S VISIT: Patient is here today for follow-up. Patient was not able to get the Skyrizi approved yet. Patient's filled out paperwork and brought it to the office today. Patient is no longer taking sulfasalazine as it was too hard for him due to work. Patient continues with occasional abdominal cramping, postprandial abdominal bloating depending on what he eats. Occasional blood in his stool, diarrhea and constipation. Patient denies any weight loss. Reports to have good appetite otherwise. Paperwork was given to RN who will fax it to the company to get medications ordered for patient. Patient denies any other GI concerning symptoms. [facility] Medical History Obesity Asthma Surgical History Hx of colonoscopy History of esophagogastroduodenoscopy (EGD) History of hand surgery S/P eye surgery Family History Mother HTN (hypertension) Diabetes Anemia Maternal Grandmother Anemia Diabetes HTN (hypertension) Lung cancer Social History Household Members: Significant Other and Children Alcohol intake: never Patient Tobacco Use Status: Never used Tobacco Review of Systems Const Denies weight gain and Denies weight loss ENT Reports no additional complaints, Denies dysphagia and Denies odynophagia Card Reports no additional complaints Resp Reports no additional complaints GI Reports abdominal pain, Denies belching, Denies melena, Reports bloating, Reports hematochezia, Reports constipation, Denies dysphagia, Denies excessive flatus, Denies dyspepsia, Denies heartburn, Denies diarrhea, Reports loose stools, Denies nausea, Denies odynophagia and Denies vomiting Reports no additional complaints Musc Reports no additional complaints Neuro Reports no additional complaints Psych Reports no additional complaints Endo Reports no additional complaints Physical Exam Vital Signs: Last Vital Signs Pulse 101 H 11/04/23 16:08 BP 140/85 H 11/04/23 16:08 BMI result Body Mass Index 37.5 Const General: healthy appearing, no acute distress and well developed Nutritional Appearance: obese Orientation/consciousness: patient oriented x3 HEENT Head: Yes normal to inspection, Yes normocephalic and Yes atraumatic Face and sinus: Yes normal facial exam Mouth: Normal oral and palatal mucosa present Throat: Yes posterior oropharynx normal, Yes tonsils normal and Yes uvula midline Eyes General: appearance normal, both eyes and all related structures Neck Neck: Yes normal visual inspection, Yes full ROM and Yes trachea midline Thyroid: Thyroid normal Resp Effort & Inspection: normal respiratory effort, able to speak in complete sentences, no tracheal deviation and symmetric chest movement Auscultation: clear to auscultation bilaterally Cardio Rate: regular rate GI Inspection: Yes normal to inspection, No distended and Yes obesity Palpation (GI): Soft to palpation, not firm, nontender and No hepatosplenomegaly present Auscultation: normal bowel sounds General: Yes no CVA tenderness Back/Spine/Pelvis Back: no CVA tenderness Skin General skin exam: elasticity normal, turgor normal and dry skin Neuro General: patient oriented x3 Psych Appearance: grossly normal Mental Status: mental status grossly normal Affect: normal affect Assessment & Plan Assessment & Plan (1) Diarrhea: Code(s): R19.7 - Diarrhea, unspecified Qualifiers: Diarrhea type: unspecified type Qualified Code(s): R19.7 - Diarrhea, unspecified (2) Rectal bleeding: Code(s): K62.5 - Hemorrhage of anus and rectum (3) Elevated C-reactive protein (CRP): Code(s): R79.82 - Elevated C-reactive protein (CRP) (4) Crohn disease: Code(s): K50.90 - Crohn's disease, unspecified, without complications Qualifiers: Gastrointestinal tract location: small intestine Digestive disease complication type: without complication Qualified Code(s): K50.00 - Crohn's disease of small intestine without complications Plan Awaiting kemar ford approval. Patient will go check calprotectin before starting the treatment. We expect the numbers to be down some. Patient symptoms are better even though he just recently stopped taking sulfasalazine. PA enrrique Cortez filled out by patient's given to LUIS EDUARDO Quiñones. I will see patient in 3 months, sooner on as needed basis. Patient is agreeable to this plan and verbalizes understanding of instructions. He was given the opportunity to ask questions and all questions answered. Thank you for allowing me to participate in his care Orders: Orders Calprotectin, Fecal Today R15.9 - Full incontinence of feces Coding Level of Care Code Est Pt Level 3 (77658) Diagnoses Diarrhea, unspecified type R19.7 Diarrhea type: unspecified type Rectal bleeding K62.5 Elevated C-reactive protein (CRP) R79.82 Crohn's disease of small intestine without complication K50.00 Gastrointestinal tract location: small intestine Digestive disease complication type: without complication Time Spent (min) 30 Comment 20 minutes spent with patient and additional 10 minutes spent reviewing his records
[2023-11-04 16:08] VITALS: BP 140/85; PULSE 101; BMI 37.5
== END 2023-11-04 16:30 | disposition home or self-care (01) ==
PROVIDERS: PCP Family Medicine; Visit Provider Nurse Practitioner Family
DX: R19.7 Diarrhea, unspecified (principal); K62.5 Hemorrhage of anus and rectum; R79.82 Elevated C-reactive protein (CRP); K50.00 Crohn's disease of small intestine without complications
CPT/HCPCS: 99213

== ENCOUNTER → 2023-11-04 15:58 | Outpatient (BNVA) | payer MEDICAID, SELFPAY | PROVIDERS: PCP Family Medicine; Visit Provider Nurse Practitioner Family | DX: K62.5 Hemorrhage of anus and rectum (principal); K50.00 Crohn's disease of small intestine without complications; R19.7 Diarrhea, unspecified; R79.82 Elevated C-reactive protein (CRP) | CPT/HCPCS: 99212 ==

== ENCOUNTER → 2024-02-26 15:48 | Outpatient (BNVA) | payer MEDICAID, SELFPAY | PROVIDERS: PCP Family Medicine; Visit Provider Nurse Practitioner Family ==

== ENCOUNTER 2024-03-19 10:54 | Outpatient (REF) | payer MEDICAID, SELFPAY ==
[2024-03-19 12:56] LABS: Alanine Aminotransferase 19 U/L (0-40); Albumin Level 4.3 g/dL (3.5-5.0); Alkaline Phosphatase 87 U/L (39-117); Anion Gap 11 (12-20); Aspartate Amino Transferase 20 U/L (5-37); Bilirubin Total 0.8 mg/dL (0.0-1.0); Blood Urea Nitrogen 12 mg/dL (9-16); Calcium 9.4 mg/dL (8.4-10.2); Carbon Dioxide 24 mmol/L (22-29); Chloride 111 mmol/L (96-108); Cholesterol 158 mg/dL (<200); Estimated Glomerular Filt Rate > 60; Glucose Random 79 mg/dL (60-115); HDL Cholesterol 34 mg/dL (>40); LDL Cholesterol Calculated 111 mg/dL (<100); Potassium 4.3 mmol/L (3.3-5.1); Sodium 142 mmol/L (135-145); Total Protein 7.4 g/dL (6.5-8.0); Triglycerides 69 mg/dL (<150)
[2024-03-19 13:10] LABS: TSH reflex Free T4 0.59 uIU/mL (0.32-4.0)
== END 2024-03-19 10:55 | disposition home or self-care (01) ==
LOC: HO.LAB 10:54
PROVIDERS: PCP Internal Medicine; Visit Provider Internal Medicine
DX: E66.01 Morbid (severe) obesity due to excess calories (principal); I10 Essential (primary) hypertension
CPT/HCPCS: 36415; 80053; 80061; 84443

== ENCOUNTER 2024-07-01 14:05 | Outpatient (REF) | payer MEDICAID, SELFPAY ==
[2024-07-01 18:04] LABS: MANUAL DIFF FLAG NO
[2024-07-01 18:16] LABS: Basophils Percent Auto 0.5 % (0-2); Eosinophils Absolute Auto 0.1 X10*3/uL (0.0-0.4); Eosinophils Percent Auto 1.2 % (0-4); Hematocrit 50.5 % (42.0-52.0); Hemoglobin 16.5 g/dl (14.0-18.0); Imm Gran Abs Auto 0.14 X10*3/uL (0.00-0.03); Imm Gran Pct Auto 2.1 % (0.0-0.4); Lymphocytes Absolute Auto 0.9 X10*3/uL (1.2-4.9); Lymphocytes Percent Auto 13.4 % (20-40); Mean Corpuscular HGB Conc 32.7 g/dl (31.0-36.0); Mean Corpuscular Hemoglobin 27.6 pg (27.0-33.0); Mean Corpuscular Volume 84.4 fL (80.0-98.0); Mean Platelet Volume 9.2 fL (9.4-12.4); Monocytes Absolute Auto 0.9 X10*3/uL (0.1-1.2); Monocytes Percent Auto 13.4 % (2-11); Neutrophils Absolute Auto 4.6 x10*3/uL (2.0-8.3); Neutrophils Percent Auto 69.4 % (45-73); Platelet Count 339 X10*3/uL (160-400); Red Blood Count 5.98 X10*6/uL (4.60-5.80); Red Cell Distribution Width 14.9 % (11.0-16.0); White Blood Count 6.6 X10*3/uL (4.8-10.8)
== END 2024-07-01 14:06 | disposition home or self-care (01) ==
LOC: HO.CHCLDS 14:05
PROVIDERS: Visit Provider Internal Medicine
DX: R65.20 Severe sepsis without septic shock (principal); J18.9 Pneumonia, unspecified organism; A41.9 Sepsis, unspecified organism
CPT/HCPCS: 36415; 85025

== ENCOUNTER 2024-07-29 12:02 | Outpatient (REF) | payer OTHER, SELFPAY ==
--- NOTE | ~2024-07-29 | XR_ITS ---
EXAMINATION: XR CHEST CLINICAL INFORMATION: Multifocal pneumonia. COMPARISON: None available. TECHNIQUE: 2 views of the chest were obtained. FINDINGS: Extensive multifocal patchy, consolidative and reticular airspace opacities. No significant pleural effusion. No pneumothorax. Prominent cardiomediastinal silhouette with fullness of the bilateral hilar regions. No acute osseous findings. XR/XR chest 2V IMPRESSION: 1. Extensive multifocal airspace opacities suspicious for atypical infectious/inflammatory process. Continued follow-up recommended. 2. Prominent cardiomediastinal silhouette with fullness of the bilateral hilar regions, underlying lymphadenopathy is not excluded. Attention on follow-up recommended. Electronically signed by: Yarely La MD 07/29/2024 01:25 PM EDT
== END 2024-07-29 12:03 | disposition home or self-care (01) ==
LOC: HO.XRAY 12:02
PROVIDERS: PCP Internal Medicine; Visit Provider Internal Medicine
DX: J18.9 Pneumonia, unspecified organism (principal)
CPT/HCPCS: 71046

== ENCOUNTER → 2024-10-04 09:00 | Outpatient (REF) | payer OTHER, SELFPAY ==
--- NOTE | 2024-10-04 09:03 | CA_ITS ---
Transthoracic Echocardiogram Amended Patient (Last, First, Middle): Stefan Loomis, Gender: Male Date of : 2000 Age: 23 Procedure Date: 10/04/2024 Procedure Type: Transthoracic Echocardiogram Location: OP Height: 185.42 cm Weight: 131.54 kg BSA: 2.52 m2 Heart Rate: 79 bpm BP: 128 / 78 mmHg Professor Of Theater: SB Referring MD: Maranda Oakes MD Magnetic Tester: Amadou Vanegas MD Symptoms: SARCOIDOSIS D86.9 Study Quality: Adequate w contrast ECG Rhythm: Sinus Conclusions: - 1. [id number] LV systolic dysfunction with LVEF of 40-45% 2. Normal cardiac valvular Dopplers 3. No gross pericardial effusion Findings Procedure Information Contrast agent, definity, is being given per protocol without apparent complications. The quality of the study was technically difficult. The study quality is limited by patients body habitus. Left Ventricle Mildly increased left ventricular cavity size. There is normal left ventricular wall thickness. The left ventricular systolic function is mild to moderately decreased. The visually estimated ejection fraction is between 40-45%. Spectral Doppler is indicative of a normal filling pattern. Peak GLS is 10.9%, which is severely reduced. Wall Motion Rest Echo Findings The inferoseptal wall, the basal inferior, and mid inferior segments are hypokinetic. All other scored wall segments showed normal motion. Right Ventricle Normal right ventricular cavity size. There is moderately decreased right ventricular systolic function. Atria Both atria are normal in size. There is no evidence of interatrial shunt. Aortic Valve Normal aortic valve structure and function. There is no aortic valve stenosis. There is no aortic valve regurgitation. Mitral Valve Normal mitral valve structure and function. There is trace mitral valve regurgitation. There is no mitral valve stenosis. Pulmonic Valve The pulmonic valve is likely normal. Tricuspid Valve Likely normal tricuspid valve structure and function. Tricuspid regurgitation envelope is inadequate for calculation of right ventricular systolic pressure. Great Vessels All visible segments of the aorta are normal in size. The pulmonary artery was not well visualized. There is no dilatation of the ascending aorta measuring 2.80 cm. Venous The inferior vena cava is normal in size and collapses greater than 50% with inspiration. Pericardium/Pleural There is no evidence of pericardial effusion. Prior Study Comparison No prior study available for comparison. Consider cardiac MRI Measurements 2D Linear Measurements IVSd: 1.09 0.6-0.9/0.6-1.0 cm LVIDd: 5.54 3.9-5.3/4.2-5.9 cm LVIDd Index: 2.20 2.4-3.2/2.2-3.1 cm/m2 LVIDs: 4.27 2.0-3.6 cm LVPWd: 0.95 0.7-1.1 cm LA Diam: 3.40 2.7-3.8/3.0-4.0 cm LAIDs Index: 1.35 1.5-2.3 cm/m2 LV Mass: 276.47 67-162/88-224 g LV Mass Index: 109.71 43-95/49-115 g/m2 LVOT Diam: 2.30 3.0+(-)1.3 cm 2D Volumes LA Vol: 9.70 2D Systolic Function EF 4C: 44.80 >55% EF 2C: 37.90 >55% EF BiP: 42.50 >55% Mitral Valve MV Pk E: 0.60 MV PK A: 0.40 MV Decel Time: 173.00 E/A: 1.50 E'Lateral: 10.30 E'Medial: 7.51 E/E' Med: 8.00 E/E' Lat: 5.80 PHT: 51.00 MVA PHT: 4.31 Decel Borden: 3.48 Aortic Valve AoV Pk Alex: 0.88 AoV Pk Grad: 3.00 SERG: 3.07 LVOT LVOT Pk Alex: 0.67 LVOT Mn Alex: 0.49 LVOT VTI: 0.12 LVOT Pk Grad: 2.00 LVOT Mn Grad: 1.00 LVOT Diam: 2.30 LVOT Area: 4.15 Diastolic Function MV Pk E: 0.60 MV Pk A: 0.40 E/A: 1.50 E'Medial: 7.51 E/E' Med: 8.00 E' Laterial: 10.30 E/E' Lat: 5.80 Right Ventricle TAPSE (mm): 14.20 TVS' Alex: 9.50 Tricuspid Valve RA Press: 4.00 Great Vessels Aorta Sinus of Valsalva: 3.40 2.0-3.5 cm Ao Asc: 2.80 2.1-3.4 cm Ao Arch: 2.60 Pulmonary Valve PV Pk Alex: 0.77 Peak PV Grad: 2.00 Updated in Other Vendor System with Status of Final Amadou Vanegas MD electronically signed on 10/04/2024 5:13:36 PM with status of Final
== END ==
LOC: HO.CARD 09:00
PROVIDERS: PCP Internal Medicine; Visit Provider Internal Medicine
DX: D86.9 Sarcoidosis, unspecified (principal)
CPT/HCPCS: 93306; 93356; Q9957

== ENCOUNTER → 2024-10-04 09:03 | Outpatient (BNV) | payer OTHER, SELFPAY | PROVIDERS: PCP Internal Medicine; Visit Provider Internal Medicine Cardiovascular Disease | DX: I51.89 Other ill-defined heart diseases (principal); R93.1 Abnormal findings on diagnostic imaging of heart and coronary circulation | CPT/HCPCS: 93306; 93356 ==

== ENCOUNTER 2025-01-06 11:31 | Outpatient (REF) | payer MEDICAID, SELFPAY ==
[2025-01-06 11:57] LABS: MANUAL DIFF FLAG NO
[2025-01-06 12:05] LABS: Basophils Percent Auto 0.5 % (0-2); Eosinophils Absolute Auto 0.2 X10*3/uL (0.0-0.4); Eosinophils Percent Auto 3.4 % (0-4); Hematocrit 45.5 % (42.0-52.0); Hemoglobin 15.1 g/dl (14.0-18.0); Imm Gran Abs Auto 0.03 X10*3/uL (0.00-0.03); Imm Gran Pct Auto 0.5 % (0.0-0.4); Lymphocytes Absolute Auto 1.5 X10*3/uL (1.2-4.9); Lymphocytes Percent Auto 26.3 % (20-40); Mean Corpuscular HGB Conc 33.2 g/dl (31.0-36.0); Mean Corpuscular Hemoglobin 28.4 pg (27.0-33.0); Mean Corpuscular Volume 85.7 fL (80.0-98.0); Mean Platelet Volume 9.3 fL (9.4-12.4); Monocytes Absolute Auto 0.5 X10*3/uL (0.1-1.2); Monocytes Percent Auto 9.6 % (2-11); Neutrophils Absolute Auto 3.3 x10*3/uL (2.0-8.3); Neutrophils Percent Auto 59.7 % (45-73); Platelet Count 314 X10*3/uL (160-400); Red Blood Count 5.31 X10*6/uL (4.60-5.80); Red Cell Distribution Width 12.9 % (11.0-16.0); White Blood Count 5.5 X10*3/uL (4.8-10.8)
--- OUTSIDE RECORDS SUMMARY | 2025-01-06 12:33 | XMS_ITS | Encounter Summary ---
Author Organization [employer] Address [address] [place] [address] Care Team Providers Care Sports Broadcaster Name Role Phone Maranda Oakes MD Primary Care Provider [phone] Encounter Details Date Type Department Care Team ([facility] Contact Info) Description 12/09/2024 Orders Only [facility] [address] [place] [address] Provider, MD Srinath Social History Tobacco Use Types Packs/Day Years Used Date Smoking Tobacco: Never Passive Smoke Exposure: Never Smokeless Tobacco: Never Alcohol Use Standard Drinks/Week Comments Never 0 (1 standard drink = 0.6 oz pur e alcohol) Depression Answer Date Recorded Patient Health Questionnaire-9 Score 2 11/25/2022 Housing Stability Answer Date Recorded What is your housing situation today? I have silviataras chinchilla 09/15/[address] you li ve. Do you have problems with any of the following? None of the above 09/15/2023 Food Insecurity Answer Date Recorded Within the past 12 months, y ou worried that your food would run out before you got money to buy more: Never True 09/15/2023 Within the past 12 months,th e food you bought just didn't last and you didn't have enough money to get more: Never True Transportation Answer Date Recorded In the past 12 months, has l ack of transportation kept you from medical appts, meetings, work or from getting things needed for daily living? No 09/15/2023 Utilities Answer Date Recorded In the past 12 months, has t he electric, gas, oil or water company threatened to shut off services in your home? No 09/15/2023 Depression Answer Date Recorded Patient Health Questionnaire-2 Score 0 11/25/2022 Sex and Gender Information Value Date Recorded Sex Assigned at Male 09/29/2022 10:40 AM EDT Legal Sex Male 10:40 AM EDT Gender Identity Male 09/29/2022 10:40 AM EDT Sexual Orientation Straight 09/29/2022 10 :40 AM EDT documented as of this encounter Plan of Treatment Upcoming Encounters Date Type Department Care Team (Late st Contact Info) Description 01/11/2025 10:00 AM EST Office Visit [facility] [address] [place] [address] [facility] [address] [place] [address] documented as of this encounter Procedures Procedure Name Priority Date/Time Associated Diagnosis Comments XR CHEST 2 VIEWS Routine 12/09/2024 11:18 AM EST documented in this encounter Results * XR Chest 2 Views (12/09/2024 11:18 AM EST) Anatomical Region Laterality Modality Chest Radiographic Sarahi ging us Historical Provider IMG XR PROCEDURES Final R esult documented in this encounter Visit Diagnoses Not on filedocumented in this encounter Additional Health Concerns Assessment Noted Time PHQ-9 Depression Total Score: 2 11/25/20 22 3:00 PM EST documented as of this encounter Care Teams Sports Broadcaster Relationship Specialty Start Date End Date Maranda Oakes MD [address] [place] [address] PCP - General Internal Medicine 07/05/24 documented as of this encounter
--- OUTSIDE RECORDS SUMMARY | 2025-01-06 12:33 | XMS_ITS | Encounter Summary ---
Author Organization [employer] Address [address] [place] [address] Care Team Providers Care Credit Collection Associate Name Role Phone Maranda Oakes MD Primary Care Provider [phone] [phone] Reason for Visit * Reason Onset Date Comments Labs Only 01/05/2025 Encounter Details Date Type Department Care Team ([facility] Contact Info) Description 01/05/2025 Telephone [facility] Cardiology [address] [place] [phone] Av Glroia MD [address] [place] [address] [address] [place], [place] [id number] Labs Only Social History Tobacco Use Types Packs/Day Years Used Date Smoking Tobacco: Never Passive Smoke Exposure: Never Smokeless Tobacco: Never Alcohol Use Standard Drinks/Week Comments Never 0 (1 standard drink = 0.6 oz pur e alcohol) Sex and Gender Information Value Date Recorded Sex Assigned at Not on file Gender Identity Not on file Sexual Orientation Not on file Job Start Date Occupation Industry Not on file Not on file Not on file documented as of this encounter Progress Notes * Chloe Busby - 01/05/2025 1:43 PM EST I called pt to remind him about getting the labs done for his upcoming Cardiac MRI, he said he is having them done at [facility]. I also called [facility] MRI dept to let them know where pt was having thedone so they can call for results if they need to. * Franci Reza - 01/05/2025 10:50 AM EST Spoke with [facility] requesting labs for patients MRI on 01/09/25. Spoke with outpatient radiology scheduler and they stated they will send the labs over as soon as we receive them. documented in this encounter Plan of Treatment Upcoming Encounters Date Type Department Care Team (Late st Contact Info) Description 01/25/2025 10:10 AM EST Office Visit [facility] Cardiology [facility] [address] [place] [address] Dr [address] [place] [address] Jami Oliver NP [address] [place] [address] [address] [place] [address] 01/31/2025 9:00 AM EST Office Visit Pulmonolgy - [place] [address] [place] [address] Rosales Burnham MD [address] [place] [address] documented as of this encounter Visit Diagnoses Not on filedocumented in this encounter Care Teams Credit Collection Associate Relationship Specialty Start Date End Date Maranda Oakes MD [address] [place] [address] PCP - General 07/11/24 documented as of this encounter
--- OUTSIDE RECORDS SUMMARY | 2025-01-06 12:33 | XMS_ITS | Encounter Summary ---
Author Organization [facility] Address [address] [place] [address] Care Team Providers Care Store Deli Manager Name Role Phone Maranda Oakes MD Primary Care Provider [phone] [phone] Reason for Visit * Therapy (Routine) - Closed Specialty Diagnoses / Procedures Referred By Alexi baumann Referred To Contact Pulmonology Diagnoses Pulmonary sarcoidosis ([facility]/HCC) Procedures Pulmonary function testing: Carbon Monoxide Diffusing Capacity, Nitrogen Wash Out, Spirometry with Bronchodilator Rosales Burnham MD [address] [address] [facility] [address] [place] [address] Referral ID Status Reason Start Date Expiration Date Visits Re quested Visits Authorized [id number] Closed 12/09/2024 12/09/2025 1 1 Encounter Details Date Type Department Care Team (Latest Contact Info) Description 12/30/2024 2:00 PM EST Ancillary Procedure Pulmonol - [place] [address] [address] Zita Claire Pulmonary sarcoidosis (CMS/HCC) Social History Tobacco Use Types Packs/Day Years [...] as of this encounter Progress Notes * Latelsie Claire - 12/30/2024 2:00 PM EST PFT performed documented in this encounter Plan of Treatment Upcoming Encounters Date Type Department Care Team (Late st Contact Info) Description 01/25/2025 10:10 AM EST Office Visit [facility] [address] [place] [address] [address] [place] [address] Jami Oliver NP [address] [place] [address] [address] [place] [address] 01/31/2025 9:00 AM EST Office Visit Pulmonolgy - [place] [address] [place] [phone] Rosales Burnham MD [address] [facility] [address] [place] [address] documented as of this encounter Procedures Procedure Name Priority Date/Time Associated Diagnosis Comments PULMONARY FUNCTION TESTING Routine 12/30/2024 2:58 PM EST Pulmonary sarcoidosis (CMS/HCC) documented in this encounter Results * Pulmonary function testing: Carbon Monoxide Diffusing Capacity, Nitrogen Wash Out, Spirometry with Bronchodilator (12/30/2024 2:58 PM EST) Impressions Naomi Reardon MD - 12/30/2024 2:58 PM EST FEV1/FVC 97%. FEV1 3.26 at 68%. FVC 57%. No bronchodilator response. TLC 67%. RV 79%. DLCO 70% (adjusted 110%). ?? No obstruction. ??Moderate restriction. ??And no decrease in diffusion when adjusted. Findings consistent with moderate restrictive lung disease. Rosales Burnham MD PFT ORDERABLES documented in this encounter Visit Diagnoses Diagnosis Pulmonary sarcoidosis (CMS/HCC) Sarcoidosis documented in this encounter Care Teams Store Deli Manager Relationship Specialty Start Date End Date Maranda Oakes MD [address] [place] [address] PCP - General 07/11/24 documented as of this encounter
--- OUTSIDE RECORDS SUMMARY | 2025-01-06 12:33 | XMS_ITS | Encounter Summary ---
Author Organization [employer] Address [address] [facility] [address] [place] [address] Care Team Providers Care Generalist Name Role Phone Maranda Oakes MD Primary Care Provider [phone] Encounter Details Date Type Department Care Team ([facility] Contact Info) Description 10/19/2024 Orders Only [facility] [address] [place] [address] Provider, MD Srinath Social History Tobacco Use [...] Description 01/11/2025 10:00 AM EST Office Visit [facility] ADULT DENTAL [address] [place] [address] Alexander Enriquealberta [address] [place] [address] documented as of this encounter Procedures Procedure Name Priority Date/Time Associated Diagnosis Comments ECG 12-LEAD Routine 10/19/2024 4:09 PM EST XR CHEST PA AND LATERAL Routine 10/19/2024 1:37 PM EST documented in this encounter Results * ECG 12 lead (10/19/2024 4:09 PM EST) us Historical Provider ECG ORDERABLES Final Res ult * XR CHEST PA AND LATERAL (10/19/2024 1:37 PM EST) Anatomical Region Laterality Modality Radiographic Sarahi ging us Historical Provider IMG XR PROCEDURES Final R esult documented in this encounter Visit Diagnoses Not on filedocumented in this encounter Additional Health Concerns Assessment Noted Time PHQ-9 Depression Total Score: 2 11/25/20 22 3:00 PM EST documented as of this encounter Care Teams Generalist Relationship Specialty Start Date End Date Maranda Oakes MD [address] [place] [address] PCP - General Internal Medicine 07/05/24 documented as of this encounter
--- OUTSIDE RECORDS SUMMARY | 2025-01-06 12:33 | XMS_ITS | Encounter Summary ---
Author Organization [email or web address] Address [address] [facility] [address] [facility] [address] [place] [address] Care Team Providers Care Electric Frying Pan Repairer Name Role Phone Maranda Oakes MD Primary Care Provider [phone] Reason for Visit * Reason Onset Date Comments Referral 08/17/2024 Encounter Details Date Type Department Care Team ([facility] Contact Info) Description 08/17/2024 Telephone [facility] [address] [place] [address] Maranda Oakes MD [address] [place] [address] Referral Social History Tobacco Use Types Packs/Day Years Used Date Smoking Tobacco: Never Passive Smoke Exposure: Never Smokeless Tobacco: Never Alcohol Use Standard Drinks/Week Comments Never 0 (1 standard drink = 0.6 oz pur e alcohol) Depression Answer Date Recorded Patient Health Questionnaire-9 Score 2 11/25/2022 Housing Stability Answer Date Recorded What is your housing situation today? I have silvia chinchilla 09/15/[address] you [...] AM EDT documented as of this encounter Miscellaneous Notes * Telephone Encounter - Wagnerrene Akhil - 08/17/2024 10:32 AM EDT Tc from pt with Partner on the line stating they need an [facility] referral [facility] [place] [address] [place] [address] . Hair Baler advised that referral had been closed due to insurance not covering any vision coverage, states they denied due to pt insurance beingcombined together and Partner seen Dr. Cole which is listed under pt as well. Pt is also scheduled for today 08/17/24 for 1pm. NP1 # [id number] ( 6 visits ) - Lesly Valentin MD Please contact at [phone] documented in this encounter Plan of Treatment Upcoming Encounters Date Type Department Care Team (Late st Contact Info) Description 01/11/2025 10:00 AM EST Office Visit [facility] ADULT DENTAL [address] [place] [address] Fred Enriqueprince [address] [place] [address] documented as of this encounter Visit Diagnoses Not on filedocumented in this encounter Additional Health Concerns Assessment Noted Time PHQ-9 Depression Total Score: 2 11/25/20 22 3:00 PM EST documented as of this encounter Care Teams Electric Frying Pan Repairer Relationship Specialty Start Date End Date Maranda Oakes MD [address] [place] [address] PCP - General Internal Medicine 07/05/24 documented as of this encounter
--- OUTSIDE RECORDS SUMMARY | 2025-01-06 12:33 | XMS_ITS | Clinical Summary ---
Author Organization [facility] Address [address] [place] [address] Phone Care Team Providers Care Double Needle Operator Lockstitch Name Role Phone Maranda Oakes MD Primary Care Provider [phone] [phone] Allergies Active Allergy Reactions Criticality Noted Date Comments Sacubitril-Valsartan Dizziness High 12/09/2024 Dizzines,left arm numbness. Medications Medication Sig Dispensed Refills Start Date End Date Status omeprazole OTC (PriLOSEC OTC) 20 mg EC tablet 07/19/2024 07/14/2025 Active albuterol 1.25 mg/3 mL nebulizer solution Take 1 Ampule by nebulization every 6 hours as needed. Active sacubitriL-valsart an (ENTRESTO) 24-26 mg per tabletIndications: Cardiomyopathy, unspecified type (CMS/HCC) Take 1 tablet by mouth 2 (two) times a day. 60 each 11 10/19/2024 10/19/2025 Active Additional Information Patient not taking.Reported on 12/09/2024 olmesartan (BENICAR) 20 mg tablet Take 1 tablet (20 mg total) by mouth 1 (one) time each day. Active predniSONE (DELTASONE) 5 mg tablet Take 2 Tablets by mouth daily for 7 days and then 1 tab po qd x 55 days 65 tablet 1 10/20/2024 12/16/2024 Active Problems Problem Noted Date Diagnosed Date Sinus tachycardia 10/19/2024 Assessment & Plan (10/19/2024 1:54 PM EST): Patient sinus tachycardia is most likely secondary to his cardiomyopathy and possibly due to some mild hypoxia from his sarcoid. Orders: ECG 12 lead MR Cardiac Morphology and Function wo and w Contrast; Future Cardiac holter monitor (<= 48 hours); Future Dilated cardiomyopathy 10/19/2024 Assessment & Plan (10/19/2024 1:54 PM EST): Patient with evidence of dilated cardiomyopathy. Probably sarcoid. Stopping his Benicar and switching him to Entresto twice a day. Will advance this as needed. Sending for Holter monitor to rule out the possibility of arrhythmia especially if his infiltrative sarcoid. I am sending him for cardiac MRI throughout the possibility of infiltrative sarcoid. Told the patient not to let anyone take him off his prednisone unless there is gradual taper since his symptoms are probably recur. The above note was prepared with the help of voice recognition software. Please excuse any grammatical or spelling errors that may have occurred Encounters Date Type Department Care Team Description 01/05/2025 Telephone [facility] [address] [facility] [address] [place] [address] Birgit Gloria MD Labs Only 12/30/2024 2:00 PM EST Ancillary Procedure Pulmonolgy - [place] [address] [phone] Zita Claire Pulmonary sarcoidosis (CMS/HCC) 12/09/2024 9:49 AM EST - 12/09/2024 11:59 PM EST Hospital Encounter [facility] Xray [address] [place] [phone] Pulmonary sarcoidosis (CMS/HCC) Discharge Disposition: Home or Self Care 12/09/2024 9:00 AM EST [facility] [address] [phone] Rosales Burnham MD Pulmonary sarcoidosis (CMS/HCC) (Primary Dx); SEEMA (obstructive sleep apnea) 11/11/2024 Telephone [facility] [address] [facility] [address] [place] [address] Birgit Gloria MD Appointment (Cardiac MRI) 11/02/2024 10:00 AM EST Ancillary Procedure [facility] [address] [place] [phone] Sinus tachycardia; Cardiomyopathy, unspecified type (CMS/HCC) 10/20/2024 9:00 AM EST Office Visit Pulmonolgy - [place] [address] [place] [phone] Rosales Burnham MD Pulmonary sarcoidosis (CMS/HCC) (Primary Dx); Dilated cardiomyopathy (CMS/HCC) 10/19/2024 1:00 PM EST Office Visit [facility] [address] [place] [phone] Birgit Gloria MD Sinus tachycardia (Primary Dx); Cardiomyopathy, unspecified type (CMS/HCC); Dilated cardiomyopathy (CMS/HCC) 10/19/2024 11:23 AM EST - 10/19/2024 11:59 PM EST Hospital Encounter [facility] Xray [address] [place] [phone] Other disorders of lung; Sarcoidosis, unspecified Discharge Disposition: Home or Self Care from Last 3 Months Medical History Medical History Date Comments Inflammatory bowel disease Social History Tobacco Use Types Packs/Day Years Used Date Smoking Tobacco: Never Passive Smoke Exposure: Never Smokeless Tobacco: Never Tobacco Cessation:Counseling Given: Not Answered Alcohol Use Standard Drinks/Week Comments Never 0 (1 standard drink = 0.6 oz pur e alcohol) Sex and Gender Information Value Date Recorded Sex Assigned at Not on file Gender Identity Not on file Sexual Orientation Not on file Job Start Date Occupation Industry Not on file Not on file Not on file Obstetrics History Last Filed Vital Signs Vital Sign Reading Time Taken Comments Blood Pressure 130/92 12/09/2024 9:08 AM EST Pulse 100 12/09/2024 9:08 AM EST Temperature 36.4 ??C (97.6 ??F) 12/09/2024 9:08 AM ES T Respiratory Rate 20 12/09/2024 9:08 AM EST Oxygen Saturation 95% 12/09/2024 9:08 AM EST Inhaled Oxygen Concentration - - Weight 144 kg (317 lb 6.4 oz) 12/09/2024 9:08 AM EST Height 185.4 cm (6' 1 ) 12/09/2024 9:08 AM EST Body Mass Index 41.88 12/09/2024 9:08 AM EST Plan of Treatment Upcoming Encounters Date Type Department Care Team (Late st Contact Info) Description 01/25/2025 10:10 AM EST Office Visit [facility] [address] [facility] [place] [address] Jami Oliver NP [address] [place] [address] [address] [place] [address] 01/31/2025 9:00 AM EST Office Visit [facility]olgy - [place] [address] [facility] [address] [place] [phone] Rosales Burnham MD 175 [facility] [address] [place] [address] Health Maintenance Due Date Last Done Comments Pneumococcal Vaccine: Pediatrics (0 to 5 Years) and At-Risk Patients (6 to 64 Years) (1 of 2 - PCV) 2004 Hepatitis A Vaccines (2 of 2 - 2-dose series) 05/11/2018 11/10/2017 HIV Screening 10/29/2022 Hepatitis C Screening 10/29/2022 Social Influencers of Health Screening 10/29/2022 Depression Screening 11/25/2023 11/25/2022 COVID-19 Vaccine ( season) 2024 Influenza Vaccine (#1) 2024 7, 08/08/2016, 08/28/2015, Additional history exists Hypertension/CHF/CAD Annual BMP Blood Test 09/13/2025 09/13/2024, 09/13/2024 DTaP,Tdap,and Td Vaccines (8 - Td or Tdap) 11/11/2027 11/11/2017, 07/15/2013, 12/13/2002, Additional history exists Cholesterol Screening (Lipid Panel) 03/19/2029 03/19/2024 Hepatitis B Vaccines Completed 06/18/1999, 04/15/1999, 02/13/1999 HIB Vaccines Completed 02/26/2000, 05/31, 04/15/1999, Additional history exists IPV Vaccines Completed 12/13/2002, 05/31, 04/15/1999, Additional history exists MMR Vaccines Completed 12/13/2002, 1999 Varicella Vaccines Completed 07/15/2013, 1999 HPV Vaccines Completed 07/24/2014, 10/30, 07/15/2013 Meningococcal ACWY Vaccine Completed 08/08/2016, RSV Immunization Patients Under 20 months Aged Out No longer eligible based on patient's age to complete this topic Procedures Procedure Name Priority Date/Time Associated Diagnosis Comments PULMONARY FUNCTION TESTING Routine 12/30/2024 2:58 PM EST Pulmonary sarcoidosis (CMS/HCC) XR CHEST 2 VIEWS Routine 12/09/2024 10:0 7 AM EST Pulmonary sarcoidosis (CMS/HCC) CARDIAC HOLTER MONITOR (REPORT GENERATED IN HOUSE) Routine 11/02/2024 10:09 AM EST Sinus tachycardia Cardiomyopathy, unspecified type (CMS/HCC) ECG 12-LEAD Routine 10/19/2024 1:14 PM EST Sinus tachycardia XR CHEST 2 VIEWS Routine 10/19/2024 11:2 9 AM EST Other disorders of lung Sarcoidosis, unspecified ANNUAL BMP BLOOD TEST Routine 09/13/2024 from Last 3 Months or Most Recently Relevant to Health Maintenance Results * Pulmonary function testing: Carbon Monoxide [...] lung disease. Rosales Burnham MD PFT ORDERABLES * XR Chest 2 Views (12/09/2024 10:07 AM EST) Only the most recent of2 resultswithin the time period is included. Anatomical Region Laterality Modality Body Radiographic Sarahi ging 12/09/2024 10:4 2 AM EST Impressions 12/09/2024 10:43 AM EST Normal examination. Code 53177 -------- FINAL REPORT -------- Dictated By: Ivan Costa Dictated Date: 12/09/2024 10:42 ET Assigned Physician: Ivan Costa Reviewed and Electronically Signed By: Ivan Costa Signed Date: 12/09/2024 10:43 ET Workstation ID: [id number] Transcribed By: Self Edit Transcribed Date: 12/09/2024 10:42 ET Narrative 12/09/2024 10:43 AM EST HISTORY: The patient is a 24-year-old male with sarcoidosis. FINDINGS: PA and lateral radiographs of the chest demonstrate normal appearance of the bony structures. ??The cardiac and mediastinal contours are within normal limits. ??The lungs and costophrenic angles are clear. ??Residual bilateral mid and lower lung infiltrates have completely resolved since 10/19/2024. Procedure Note Ivan Costa MD - 12/09/2024 HISTORY: The patient is a 24-year-old male with sarcoidosis. FINDINGS: PA and lateral radiographs of the chest demonstrate normalappearance of the bony structures. The cardiac and mediastinal contoursare within normal limits. The lungs and costophrenic angles are clear.Residual bilateral mid and lower lung infiltrates have completely resolvedsince 10/19/2024. IMPRESSION: Normal examination. Code 79300 -------- FINAL REPORT -------- Dictated By: Ivan Costa Dictated Date: 12/09/2024 10:42 ET Assigned Physician: Ivan Costa Reviewed and Electronically Signed By: Ivan Costa Signed Date: 12/09/2024 10:43 ET Workstation ID: [id number] Transcribed By: Self Edit Transcribed Date: 12/09/2024 10:42 ET Rosales Burnham MD IMG XR PROCEDURES * CARDIAC HOLTER MONITOR (REPORT GENERATED IN HOUSE) (11/02/2024 10:09 AM EST) Anatomical Region Laterality Modality Cardiac Diagnost ic Narrative 11/08/2024 7:01 PM EST [facility] DI[facility]NOSTIC TESTING DEPARTMENT [address] [place] [address], [id number], [place] [address] TEL: FAX: Type of Test: 48 Hour Holter Monitor Date of Test: 11/02/2024 Ordering Provider: Birgit Gloria MD Reason for Test: Sinus Tachycardia, Cardiomyopathy PVCA Cd Reactor Operator Head Findings: ?? 1: Normal Sinus Rhythm with episodes of Sinus Tachycardia. 2: Heart rate range was 57-160 BPM with an average of 93 BPM. Total time in Sinus Tachycardia: 11 hrs 08 mins. 3: Rare PACs. 4: One isolated PVC and two ventricular couplets. 5: No significant pause, longest R-R was 1.1 second at 6:33 PM. 6: Diary returned with no symptoms noted. Impression: ?? Holter monitor done May the possibility of complex ventricular arrhythmias in a patient with possible cardiac sarcoid. Rare premature ventricular beats No sustained arrhythmias identified Birgit Gloria MD CV CARDIAC SERVICES PROCEDURES * ECG 12 lead (10/19/2024 1:14 PM EST) Ventricular Rate ECG 101 BPM GEMUSE Atrial Rate 101 BPM GEMUSE P-R Interval 140 ms GEMUSE QRS Duration 88 ms GEMUSE Q-T Interval 362 ms GEMUSE QTc 469 ms GEMUSE P Wave [place] 21 degrees GEMUSE R [place] 78 degrees GEMUSE T [place] -23 degrees GEMUSE ECG Interpretation Sinus tachycardia Cannot rule out Inferior infarct , age undetermined Abnormal ECG When compared with ECG of 12-JUL-2024 00:09, Minimal criteria for Inferior infarct are now Present T wave inversion more evident in Inferior leads Nonspecific T wave abnormality now evident in Anterior leads Confirmed by Lizbet GLORIA, BIRGIT ([id number]) on 10/19/2024 3:39:34 PM GEMUSE 10/19/2024 1:14 PM EST 10/19/2024 3:39 PM EST Birgit Gloria MD ECG ORDERABLES GEMUSE * Annual BMP Blood Test (09/13/2024) Annual BMP Blood Test Abstracted Historical Provider MD ZELALEM Khan from Last 3 Months or Most Recently Relevant to Health Maintenance Care Teams Double Needle Operator Lockstitch Relationship Specialty Start Date End Date Maranda Oakes MD [address] [place], [place] PCP - General 07/11/24
--- OUTSIDE RECORDS SUMMARY | 2025-01-06 12:33 | XMS_ITS | Clinical Summary ---
Author Organization [employer] Address [address] [facility] [address] [place] [address] Care Team Providers Care Pattern Repair Person Name Role Phone Maranda Oakes MD Primary Care Provider [phone] Allergies No known active allergies Medications EPINEPHrine (Epipen) 0.3 MG/0.3ML injection syringeIndicatio ns:Anaphylactic reaction to bee sting, undetermined intent, sequela Inject 0.3 mL (0.3 mg) as directed 1 (one) time for 1 dose. use as directed for allergic reaction and then call 911 1 each 2 Active Blood Pressure kitIndications:E levated blood pressure reading 1 kit in the morning. 1 kit 2 Active pantoprazole (ProtoNix) 40 MG EC tablet TAKE 1 TABLET BY MOUTH DAILY 1/2 HOUR BEFORE BREAKFAST 3 Active albuterol 108 (90 Base) MCG/ACT inhalerIndicatio ns:Mild persistent asthma, unspecified whether complicated Inhale 2 puffs every 4 (four) hours if needed for wheezing. 18 g 5 3 Active loratadine (Claritin) 10 MG tabletIndication s:Irritant contact dermatitis due to other chemical products TAKE 1 TABLET BY MOUTH EVERY DAY IN THE MORNING 90 tablet 1 4 Active olmesartan (BENIcar) 20 MG tablet Take 1 tablet (20 mg) by mouth in the morning. 90 tablet 1 4 Active Mometasone Furoate (Asmanex, 120 Metered Doses,) 220 MCG/ACT aerosol powderIndication s:Mild persistent asthma, unspecified whether complicated Inhale 220 mcg Once per day. 1 each 3 4 Active ipratropium-albu terol (Duo-Neb) 0.5-2.5 mg/3 mL nebulizer solution Take 3 mL by nebulization Every 4-6 hours as needed for wheezing or shortness of breath. 4 Active Active Problems Problem Noted Date Diagnosed Date Keratoconus of both eyes 08/15/2024 Primary hypertension 02/22/2024 Assessment & Plan (02/22/2024 5:29 PM EDT): -BP above target goal of <130/80 -BP medication dose increased -daily BP monitoring advised -low salt diet and 30 min moderate intensity daily exercise recommendations reviewed -follow-up 1 month with PCP Chest pain 02/22/2024 Assessment & Plan (02/22/2024 5:11 PM EDT): -pain may be related to gas based on description -12 lead EKG today without abnormal findings -prescription for simethicone sent to pharmacy -chest pain red flags reviewed Vitamin D deficiency 06/23/2023 Crohn's disease of small intestine with rectal b leeding 02/06/2023 Assessment & Plan (02/18/2023 10:17 PM EDT): Recently diagnosed by GI specialist and started on medication. Doing better and no further rectal bleeding. Chronic diarrhea 11/25/2022 Assessment & Plan (11/25/2022 4:17 PM EST): Reports months hx of bloody diarrhea with association with nausea and vomiting. No records available for review at this moment from [facility], reports had CT scan of the abdomen, will refer to GI and will send testing. Bee sting-induced anaphylaxis 11/25/2022 Assessment & Plan (11/25/2022 4:18 PM EST): Epipen sent Mild persistent asthma 11/25/2022 Assessment & Plan (11/25/2022 4:16 PM EST): Refill flovent and albuterol, will need ACT questionnaire administered next visit Morbid obesity 11/25/2022 Assessment & Plan (02/22/2024 5:32 PM EDT): -patient advised to increase his physical activity -advised to avoid skipping meals, rather eat smaller portions and choose healthy alternatives for snacks -previously ordered CMP, lipid, and TSH labs reprinted and patient advised to have them completed. -discuss weight loss options with PCP after completing the labs Assessment & Plan (11/25/2022 4:17 PM EST): Will check labs and followup with results Elevated blood pressure reading 11/25/2022 Assessment & Plan (11/25/2022 4:16 PM EST): Mild elevation of BP, will send BP cuff for monitoring and f/up in 4-6 weeks Resolved Problems Problem Noted Date Diagnosed Date Resolved Date Mild intermittent asthma 06/26/2022 Encounters Date Type Department Care Team Description 12/26/2024 11:00 AM EST Office Visit [facility] [address], [place] [phone] Vicente Oakes Dental calculus (Primary Dx) 12/09/2024 Orders Only [employer] [facility] [address], [place] [phone] ProviderSrinath MD 12/02/2024 1:40 PM EST Office Visit [facility] [address], [place] [phone] Maranda Oakes MD Mild persistent asthma, unspecified whether complicated (Primary Dx); Morbid obesity (CMS/HCC); Primary hypertension; Pneumonitis; Other cardiomyopathy (CMS/HCC); Acute cough 12/02/2024 Telephone [facility] [address], [place] [phone] Maranda Oakes MD Referral 12/02/2024 Travel 12/02/2024 Telephone [facility] [address], [place] [phone] Maranda Oakes MD Nurse Triage 10/19/2024 Orders Only [employer] [facility] [address] [place] [phone] Provider, MD Srinath from Last 3 Months Immunizations Name Administration Dates Next Due Hep A, ped/adol, 2 dose 11/10/2017 Influenza injectable quadrivalent preservative f ree 08/08/2016 Influenza, IIV3, injectable 11/10/2017 Meningococcal MCV4P [id number] 08/08/2016 Social History Tobacco Use Types Packs/Day Years [...] Orientation Straight 09/29/2022 10 :40 AM EDT Last Filed Vital Signs Vital Sign Reading Time Taken Comments Blood Pressure 126/68 12/26/2024 11:01 AM EST Pulse 65 12/26/2024 11:01 AM EST Temperature 36.7 ??C (98 ??F) 12/02/2024 1:52 PM EST Respiratory Rate 20 12/02/2024 1:52 PM EST Oxygen Saturation 97% 12/02/2024 1:52 PM EST Inhaled Oxygen Concentration - - Weight 142 kg (313 lb) 12/02/2024 1:52 PM EST Height 185.4 cm (6' 1 ) 12/02/2024 1:52 PM EST Body Mass Index 41.3 12/02/2024 1:52 PM EST Plan of Treatment Upcoming Encounters Date Type Department Care Team (Late st Contact Info) Description 01/11/2025 10:00 AM EST Office Visit [facility] [address] [place] [phone] Alexander [facility] [address] [place] [address] Health Maintenance Due Date Last Done Comments Alcohol/Substance Use Screening 2010 Family Planning (PISQ) 2013 HPV Vaccines (1 - Male 3-dos e series) 2013 DTaP/Tdap/Td Vaccines (1 - Tdap) 2017 Hepatitis B Vaccines (1 of 3 - 19+ 3-dose series) 2017 Pneumococcal Vaccine: Pediatrics (0 to 5 Years) and At-Risk Patients (6 to 49) Years) (1 of 2 - PCV) 2017 Hepatitis A Vaccines (2 of 2 - 2-dose series) 05/11/2018 11/10/2017 Depression Screening 11/25/2023 11/25/2022, 11/25/2022 COVID-19 Vaccine (1 - 2023-2 5 season) 2024 Influenza Vaccine (#1) 2024 7, 08/08/2016 SDOH Screening 02/14/2025 02/15/2024 Dental Oral Exam 06/26/2025 12/26/2024 Dental Prophylaxis 06/26/2025 12/26/2024 Tobacco Screening 12/26/2025 12/26/2024 Dental X-Ray: Bitewings 12/27/2025 12/26/2024 Dental X-Ray: Full Mouth 12/27/2027 12/26/2024 Lipid Panel 03/19/2029 03/19/2024 Zoster Vaccines (1 of 2) 2048 RSV Patients and Patients Aged 60 years or older (1 - 1-dose 75+ series) 2073 Meningococcal Vaccine Completed 08/08/2016 HIV Screening Completed 01/26/2023 Hepatitis C Screening Completed 01/26/2023 HIB Vaccines Aged Out No longer eligi ble based on patient's age to complete this topic IPV Vaccines Aged Out No longer eligi ble based on patient's age to complete this topic RSV under 20 months Aged Out No longe r eligible based on patient's age to complete this topic Rotavirus Vaccines Aged Out No longer eligible based on patient's age to complete this topic Procedures Procedure Name Priority Date/Time Associated Diagnosis Comments CBC WITH AUTO DIFFERENTIAL Routine 01/06/2025 11:56 AM EST Diarrhea, unspecified type COMPREHENSIVE ORAL EVALUATION - NEW OR ESTABLISHED PATIENT Routine 12/26/2024 11:00 AM EST ORAL HYGIENE INSTRUCTIONS Routine 12/26/2024 11:00 AM EST DIAGNOSTIC - DIAGNOSTIC IMAGING - INTRAORAL - COMPREHENSIVE SERIES OF RADIOGRAPHIC IMAGES Routine 12/26/2024 11:00 AM EST PROPHYLAXIS - ADULT Routine 12/26/2024 1 1:00 AM EST 4 DO AMALGAM FILLING Routine 12/26/2024 12:00 AM EST 3 MOD AMALGAM FILLING Routine 12/26/2024 12:00 AM EST 20 O COMPOSITE FILLING Routine 12:00 AM EST 19 O AMALGAM FILLING Routine 12/26/2024 12:00 AM EST 18 O AMALGAM FILLING Routine 12/26/2024 12:00 AM EST 13 MO AMALGAM FILLING Routine 12/26/2024 12:00 AM EST 12 DO AMALGAM FILLING Routine 12/26/2024 12:00 AM EST 15 O COMPOSITE FILLING Routine 12:00 AM EST 30 O COMPOSITE FILLING Routine 12:00 AM EST 31 O COMPOSITE FILLING Routine 12:00 AM EST 2 O COMPOSITE FILLING Routine 12/26/2024 12:00 AM EST XR CHEST 2 VIEWS Routine 12/09/2024 11:1 8 AM EST ECG 12-LEAD Routine 10/19/2024 4:09 PM EST XR CHEST PA AND LATERAL Routine 10/19/2024 1:37 PM EST LIPID PANEL, STANDARD Routine 03/19/2024 11:00 AM EDT Primary hypertension Morbid obesity (CMS/HCC) HEPATITIS PANEL, GENERAL Routine 01/26/2023 3:30 PM EST HIV ANTIBODY/ANTIGEN ([place] [facility]) Routine 01/26/2023 3:30 PM EST from Last 3 Months or Most Recently Relevant to Health Maintenance Results * (ABNORMAL) CBC auto differential (01/06/2025 11:56 AM EST) White Blood Count 5.5 4.8 - 10.8 X10*3/uL [facility] Red Blood Count 5.31 4.60 - 5.80 X10*6/uL [facility] Hemoglobin 15.1 14.0 - 18.0 g/dl [facility] Hematocrit 45.5 42.0 - 52.0 % [facility] Mean Corpuscular Volume 85.7 80.0 - 98.0 fL [facility] Mean Corpuscular Hemoglobin 28.4 27.0 - 33.0 pg [facility] Mean Corpuscular HGB Conc 33.2 31.0 - 36.0 g/dl [facility] Red Cell Distribution Width 12.9 11.0 - 16.0 % [facility] Platelet Count 314 160 - 400 X10*3/uL [facility] Mean Platelet Volume 9.3(L) 9.4 - 12.4 fL [facility] Neutrophils Percent Auto 59.7 45 - 73 % [facility] Imm Gran Pct Auto 0.5(H) 0.0 - 0.4 % [facility] Lymphocytes Percent Auto 26.3 20 - 40 % [facility] Monocytes Percent Auto 9.6 2 - 11 % [facility] Eosinophils Percent Auto 3.4 0 - 4 % [facility] Basophils Percent Auto 0.5 0 - 2 % [facility] NRBC Pct Auto 0.0 0.0 - 0.2 /100WBC [facility] Neutrophils Absolute Auto 3.3 2.0 - 8.3 x10*3/uL [facility] Imm Gran Abs Auto 0.03 0.00 - 0.03 X10*3/uL [facility] Lymphocytes Absolute Auto 1.5 1.2 - 4.9 X10*3/uL [facility] Monocytes Absolute Auto 0.5 0.1 - 1.2 X10*3/uL [facility] Eosinophils Absolute Auto 0.2 0.0 - 0.4 X10*3/uL [facility] Basophils Absolute Auto 0.0 0.0 - 0.2 X10*3/uL [facility] NRBC Abs Auto 0.000 0.0 - 0.012 X10*3/uL [facility] Blood Venous blood specimen / Unknown 01/06/2025 11:56 AM EST 01/06/2025 11:56 AM EST Result [facility] Maranda Oakes MD LAB BLOOD ORDERABLES Final Result [facility] [address] [place] [phone] * XR Chest 2 Views (12/09/2024 11:18 AM EST) Anatomical Region Laterality Modality Chest Radiographic Sarahi ging Historical Provider IMG XR PROCEDURES Final R esult * ECG 12 lead (10/19/2024 4:09 PM EST) Historical Provider ECG ORDERABLES Final Res ult * XR CHEST PA AND LATERAL (10/19/2024 1:37 PM EST) Anatomical Region Laterality Modality Radiographic Sarahi ging Historical Provider IMG XR PROCEDURES Final R esult * (ABNORMAL) Lipid Panel, Standard (03/19/2024 11:00 AM EDT) Triglycerides 69 <150 mg/dL [facility] Comment:Desirable Triglyceri de: less than 150 mg/dLBorderline High Triglyceride 150-199 mg/dLHigh Triglyceride: 200-499 mg/dLVery High Triglyceride: greater than or equal to 5OO mg/dL Cholesterol 158 <200 mg/dL [facility] Comment:Desirable Cholestero l: less than 200 mg/dLBorderline High Cholesterol: 200-239 mg/dLHigh Cholesterol: greater than 239 mg/dL LDL Cholesterol Calculated 111(H) <100 mg/dL [facility] Comment:Desirable LDL: less than 100 mg/dLNear Optimal/Above Optimal LDL: 110- 129 mg/dLBorderline High LDL: 130-159 mg/dLHigh LDL: 160-189 mg/dLVery High LDL: greater than or equal to 190 mg/dL HDL Cholesterol 34(L) >40 mg/dL [facility] Comment:Desirable HDL: great er than 40 mg/dL Note: This HDL assay may give artificially low results in patients with liver disease. Blood Venous blood specimen / Unknown 03/19/2024 11:00 AM EDT 03/19/2024 11:00 AM EDT us Maranda Oakes MD LAB BLOOD ORDERABLES Final Result [facility] [address] [place] [phone] * HIV Ab/Ag ([facility]) (01/26/2023 3:30 PM EST) HIV AB/AG Nonreactive Nonreactive [facility] Comment:HIV-1 p24 Ag and/or HIV-1/HIV-2 Ab not detected.A test result that is nonreactive does not exclude thepossibility of exposure to or infection with HIV-1 and/orHIV-2. Nonreactive results in this assay for individualswith prior exposure to HIV-1 and/or HIV-2 may be due toantigen and antibody levels that are below the limit ofdetection of this assay.The [facility] HIV Ag/Ab Combo assay result andsupplemental assay results should be interpreted inconjunction with the patient's clinical presentation,history and other laboratory results. If the results areinconsistent with clinical evidence, additional testing issuggested to confirm the result. 01/26/2023 3:30 PM EST 01/26/2023 3:30 PM EST [facility] External Provider LAB BLO OD ORDERABLES Final Result Performing Organization Address [facility]/ZIP Co de Phone Number [facility] [address] [place] [phone] * Hepatitis Panel, General (01/26/2023 3:30 PM EST) Hepatitis A IgM Nonreactive Nonreactive [facility] Comment:IgM antibodies to ESPARZA V not detected; does not exclude earlyacute or recovered HAV infection. ~Hepatitis B Surface Antibody NONREACTIVE Nonreactive [facility] Comment:Nonreactive: < 8.00 mIU/mL Hepatitis B Core Antibody Nonreactive Nonreactive [facility] Hepatitis C Antibody Nonreactive Nonreactive [facility] Comment:Antibodies to HCV no t detected; does not exclude early acuteHCV infection. Hepatitis B Surface Ag Negative Negative [facility] 01/26/2023 3:30 PM EST 01/26/2023 3:30 PM EST [facility] External Provider LAB BLO OD ORDERABLES Final Result Performing Organization Address [facility]/ZIP Co de Phone Number [facility] [address] [place] [phone] from Last 3 Months or Most Recently Relevant to Health Maintenance Insurance [facility] Care Teams Pattern Repair Person Relationship Specialty Start Date End Date Maranda Oakes MD [address] [place] [phone] PCP - General Internal Medicine 07/05/24
--- OUTSIDE RECORDS SUMMARY | 2025-01-06 12:33 | XMS_ITS | Encounter Summary ---
Author Organization [facility] Address [address] [place] [address] Care Team Providers Care Service Desk Team Lead Name Role Phone Maranda Oakes MD Primary Care Provider [phone] Reason for Visit * Reason Comments Routine Cleaning Dental Exam Encounter Details Date Type Department Care Team ([facility] Contact Info) Description 12/26/2024 11:00 AM EST Office Visit [facility] ADULT DENTAL [address] [place] [address] Vicente Oakes Dental calculus (Primary Dx) Social History Tobacco Use Types Packs/Day Years [...] AM EDT documented as of this encounter Last Filed Vital Signs Vital Sign Reading Time Taken Comments Blood Pressure 126/68 12/26/2024 11:01 AM EST Pulse 65 12/26/2024 11:01 AM EST Temperature - - Respiratory Rate - - Oxygen Saturation - - Inhaled Oxygen Concentration - - Weight - - Height - - Body Mass Index - - documented in this encounter Progress Notes * Vicente Oakes - 12/26/2024 11:00 AM EST Patient ID: Stefan Hill is a 24 y.o. male. Time Out: Timeout Date: 12/26/24, Timeout Time: 1103 Location: [facility] Tooth: Maxilla and Mandible Procedure: Exam, X-rays, and Prophylaxis Verified the above with patient, technology assistant, and provider. Confirmed via patient's chart, intraorally and by radiographs. Joinery Patternmaker: not applicable Medical Hx: Vitals: Blood pressure 126/68, pulse 65. Medications, Med Hx reviewed with patient and updated in chart. Treatment Provided Dental procedures in this visit D1110 - PROPHYLAXIS - ADULT (Completed) Service provider: Vicente Oakes Billing provider: Richard Enrique D0210 - DIAGNOSTIC - DIAGNOSTIC IMAGING - INTRAORAL - COMPREHENSIVE SERIES OF RADIOGRAPHIC IMAGES (Completed) Service provider: Vicente Oakes Billing provider: Richard Enrique D1330 - ORAL HYGIENE INSTRUCTIONS (Completed) Service provider: Vicente Oakes Billing provider: Richard Enrique D0150 - COMPREHENSIVE ORAL EVALUATION - NEW OR ESTABLISHED PATIENT (Completed) Service provider: Richard Enrique Billing provider: Richard Enrique Instruments Used: Ultrasonic Scalers and Prophy angle Fluoride: N/A Oral Cancer Screening: No lesions Head/Neck Exam: No Lesions Calculus: Moderate and Generalized Plaque: Light and Generalized Stain: Light and Localized Bleeding: Light and Generalized Gingiva: Perio Charting Completed and Bleeding on probing OH: Fair Perio Chart: Completed Oral hygiene instructions provided to patient including brushing technique and flossing. Dental exam done by . Recommendations: Kenner two times daily, modified cruz technique, Floss daily Recall Frequency: 6 mo NV: tere #4 Hygienist: Vicente Oakes RDH * Richard Enrique - 12/26/2024 11:00 AM EST Images from the original note were not included. Dental procedures in this visit D1110 - PROPHYLAXIS - ADULT (Completed) Service provider: Vicente Oakes Billing provider: Richard Enrique D0210 - DIAGNOSTIC - DIAGNOSTIC IMAGING - INTRAORAL - COMPREHENSIVE SERIES OF RADIOGRAPHIC IMAGES (Completed) Service provider: Vicente Oakes Billing provider: Richard Enrique D1330 - ORAL HYGIENE INSTRUCTIONS (Completed) Service provider: Vicente Oakes Billing provider: Richard Enrique D0150 - COMPREHENSIVE ORAL EVALUATION - NEW OR ESTABLISHED PATIENT (Completed) Service provider: Richard Enrique Billing provider: Richard Enrique Patient ID: Stefan Hill is a 24 y.o. male. Time Out: Timeout Date: 12/26/24, Timeout Time: 1103 Location: [facility] Tooth: Maxilla and Mandible Procedure: Exam Verified the above with patient, technology assistant, and provider. Confirmed via patient's chart, intraorally and by radiographs. Joinery Patternmaker: not applicable Chief Complaint Patient presents with Routine Cleaning Dental Exam Medical Hx: Vitals: Blood pressure 126/68, pulse 65. Past Medical History: Diagnosis Date Keratoconus of both eyes Medications: Outpatient Encounter Medications as of 12/26/2024 Medication Sig Dispense Refill albuterol 108 (90 Base) MCG/ACT inhaler Inhale 2 puffs every 4 (four) hours if needed for wheezing.18 g 5 Blood Pressure kit 1 kit in the morning. 1 kit 0 EPINEPHrine (Epipen) 0.3 MG/0.3ML injection syringe Inject 0.3 mL (0.3 mg) as directed 1 (one) timefor 1 dose. use as directed for allergic reaction and then call 911 1 each 0 ipratropium-albuterol (Duo-Neb) 0.5-2.5 mg/3 mL nebulizer solution Take 3 mL by nebulization Every 4-6 hours as needed for wheezing or shortness of breath. loratadine (Claritin) 10 MG tablet TAKE 1 TABLET BY MOUTH EVERY DAY IN THE MORNING 90 tablet 1 Mometasone Furoate (Asmanex, 120 Metered Doses,) 220 MCG/ACT aerosol powder Inhale 220 mcg Once perday. 1 each 3 olmesartan (BENIcar) 20 MG tablet Take 1 tablet (20 mg) by mouth in the morning. 90 tablet 1 pantoprazole (ProtoNix) 40 MG EC tablet TAKE 1 TABLET BY MOUTH DAILY 1/2 HOUR BEFORE BREAKFAST No facility-administered encounter medications on file as of 12/26/2024. 24 y/o old male presents for a periodic exam done by Dr. Richard Enrique, DMD. Chief Complaint: I came for cleaning Medical History: Patient does not report any changes in health issues that could alter the Treatment Plan. Medical consult / medical clearance needed: None [place]: Pain: no Duration: n/a Scale of pain from 1-10 = n/a Aggravating factors: n/a Pain radiating: No Postural variation: No Allergies: Reviewed in EHR Medications: Reviewed in EHR Radiographs X-rays taken today: FMX taken today Discussion: -Pt stated that pt has no dental concerns. -Pt has sensitivity to cold foods and beverages due to excessive soda consumption and has generalized calcification, advised consumption of soda in moderation as it is damaging patient's teeth. Pt understood and agreed. Sensodyne recommended. -Findings, risks, benefits and alternatives discussed with pt. -Reviewed radiographs with pt. -Restorations planned as charted. -Pt flosses and brushes aggressively, so advised to do both gently. -OHI reviewed. Emphasis was laid on maintaining good oral hygiene regimen at home along with regular visits to dentist. -Pt understood, was satisfied with our conversation and agreed with tx plan; dismissed in good condition. -All questions answered. Soft tissue exam: WNL; OCS- negative Head and neck exam: Lymph Nodes, Lips, Palate, Buccal Mucosa, Floor of Mouth, Tongue, Tonsils, Alveolar Ridges, Oropharynx, Salivary Ducts, Vestibules - no abnormal findings. TMJ/Occlusal - TMJ is within normal limits. Oral Cancer Risk - low Oral hygiene - fair Perio risk- fair Oral Hygiene Instruction Provided - Yes Oral Hygiene Instructions: Kenner two times daily, modified cruz technique, Floss daily, Electric toothbrush, Soft bristle toothbrush, Kenner Tongue. Referrals - None Treatment plan: -Restorative -6 month recall All questions answered and expressed understanding. Dismissed in good condition. NV: Restorative Hygienist: Vicente Dentist: Dr. Richard Enrique, DMD documented in this encounter Plan of Treatment Upcoming Encounters Date Type Department Care Team (Late st Contact Info) Description 01/11/2025 10:00 AM EST Office Visit [facility] AD[facility] [address] [place] [address] Richard Enrique [address] [place] [address] Scheduled Orders Name Type Priority Associated Diagnoses Orde r Schedule 4 DO 4 DO RESTORATIVE - RESIN-BASED COMPOSITE RESTORATIONS - DIRECT - RESIN-BASED COMPOSITE - TWO SURFACES, POSTERIOR Dental Routine 1 Occur rences starting 12/26/2024 3 O 3 O RESTORATIVE - RESIN-BASED COMPOSITE RESTORATIONS - DIRECT - RESIN-BASED COMPOSITE - ONE SURFACE, POSTERIOR Dental Routine 1 Occurr ences starting 12/26/2024 10 ML 10 ML RESTORATIVE - RESIN-BASED COMPOSITE RESTORATIONS - DIRECT - RESIN-BASED COMPOSITE - TWO SURFACES, ANTERIOR Dental Routine 1 Occurr ences starting 12/26/2024 10 F 10 F RESTORATIVE - RESIN-BASED COMPOSITE RESTORATIONS - DIRECT - RESIN-BASED COMPOSITE - ONE SURFACE, ANTERIOR Dental Routine 1 Occurre nces starting 12/26/2024 documented as of this encounter Procedures Procedure Name Priority Date/Time Associated Diagnosis Comments PROPHYLAXIS - ADULT Routine 12/26/2024 1 1:00 AM EST ORAL HYGIENE INSTRUCTIONS Routine 2024 11:00 AM EST DIAGNOSTIC - DIAGNOSTIC IMAGING - INTRAORAL - COMPREHENSIVE SERIES OF RADIOGRAPHIC IMAGES Routine 12/26/2024 11:00 AM EST COMPREHENSIVE ORAL EVALUATION - NEW OR ESTABLISHED PATIENT Routine 12/26/2024 11:00 AM EST 20 O COMPOSITE FILLING Routine 5 12:00 AM EST 15 O COMPOSITE FILLING Routine 5 12:00 AM EST 30 O COMPOSITE FILLING Routine 5 12:00 AM EST 31 O COMPOSITE FILLING Routine 5 12:00 AM EST 2 O COMPOSITE FILLING Routine 12/26/2024 12:00 AM EST 4 DO AMALGAM FILLING Routine 12/26/2024 12:00 AM EST 3 MOD AMALGAM FILLING Routine 12/26/2024 12:00 AM EST 19 O AMALGAM FILLING Routine 12/26/2024 12:00 AM EST 18 O AMALGAM FILLING Routine 12/26/2024 12:00 AM EST 13 MO AMALGAM FILLING Routine 12/26/2024 12:00 AM EST 12 DO AMALGAM FILLING Routine 12/26/2024 12:00 AM EST documented in this encounter Visit Diagnoses Diagnosis Dental calculus- Primary Accretions on teeth documented in this encounter Additional Health Concerns Assessment Noted Time PHQ-9 Depression Total Score: 2 11/25/20 22 3:00 PM EST documented as of this encounter Care Teams Service Desk Team Lead Relationship Specialty Start Date End Date Maranda Oakes MD [address] [place] [id number] PCP - General Internal Medicine 07/05/24 documented as of this encounter
--- OUTSIDE RECORDS SUMMARY | 2025-01-06 12:33 | XMS_ITS | Encounter Summary ---
Author Organization [employer] Address [address] [place] [address] Care Team Providers Care Contact Center Representative Name Role Phone Maranda Oakes MD Primary Care Provider [phone]- [phone] Encounter Details Date Type Department Care Team ([facility] st Contact Info) Description 08/15/2024 Orders Only [facility] MED & PEDS [address] [place] [address] Provider, MD Srinath Social History Tobacco Use [...] 01/11/2025 10:00 AM EST Office Visit [facility] AD[facility] [address] [place] [address] Alexander [facility] [address] [place] [address] documented as of this encounter Procedures Procedure Name Priority Date/Time Associated Diagnosis Comments XR CHEST 1 VIEW Routine 08/12/2024 4:13 PM EDT XR CHEST PORTABLE Routine 08/12/2024 3:42 PM EDT documented in this encounter Results * XR Chest 1 View (08/12/2024 4:13 PM EDT) Anatomical Region Laterality Modality Chest Radiographic Sarahi ging us Historical Provider IMLaura XR PROCEDURES Final R esult * XR Chest Portable (08/12/2024 3:42 PM EDT) Anatomical Region Laterality Modality Radiographic Sarahi ging us Historical Provider IMLaura XR PROCEDURES Final R esult documented in this encounter Visit Diagnoses Not on filedocumented in this encounter Additional Health Concerns Assessment Noted Time PHQ-9 Depression Total Score: 2 11/25/20 22 3:00 PM EST documented as of this encounter Care Teams Contact Center Representative Relationship Specialty Start Date End Date Maranda Oakes MD [address] [place] [address] PCP - General Internal Medicine 07/05/24 documented as of this encounter
--- OUTSIDE RECORDS SUMMARY | 2025-01-06 12:33 | XMS_ITS | Encounter Summary ---
Author Organization [employer] Address [address] [place] [address] Care Team Providers Care Typing Element Machine Operator Name Role Phone Maranda Oakes MD Primary Care Provider [phone]- [phone] Reason for Visit * Reason Onset Date Comments Referral 12/02/2024 Encounter Details Date Type Department Care Team ([facility] Contact Info) Description 12/02/[address] [facility] MEDICINE [address] [place] [address] Maranda Oakes MD [address] [place] [address] Referral Social History Tobacco Use Types Packs/Day [...] encounter Miscellaneous Notes * Telephone Encounter - Thai Murdock - 12/02/2024 1:58 PM EST TC venkatesh Ross requesting new referral : DATE: 12/09/24 TIME: 09:00 AM Address: [address] [place] [address] Visits: 12 Facility Name: [facility] Type of Specialist: pulmonary DX: D86.0 Provider : Dr Rosales Burnham Provider NPI : [id number] Phone # : [phone] Fax #: [phone] documented in this encounter Plan of Treatment Upcoming Encounters Date Type Department Care Team ([facility] st Contact Info) Description 01/11/2025 10:00 AM EST Office Visit [facility] ADULT DENTAL [address] [place] [address] Richard Enrique [address] [place] [address] documented as of this encounter Visit Diagnoses Not on filedocumented in this encounter Additional Health Concerns Assessment Noted Time PHQ-9 Depression Total Score: 2 11/25/20 22 3:00 PM EST documented as of this encounter Care Teams Typing Element Machine Operator Relationship Specialty Start Date End Date Maranda Oakes MD [address] [place] [address] PCP - General Internal Medicine 07/05/24 documented as of this encounter
--- OUTSIDE RECORDS SUMMARY | 2025-01-06 12:33 | XMS_ITS | Encounter Summary ---
Author Organization [employer] Address [address] [place] [address] Care Team Providers Care Special Education Teachers Name Role Phone Maranda Oakes MD Primary Care Provider [phone] -[phone] Reason for Visit * Reason Onset Date Comments Appointment 11/11/2024 Cardiac MRI Encounter Details Date Type Department Care Team ([facility] Contact Info) Description 11/11/2024 Telephone [facility] [address] [place] [phone] Av Gloria MD [address] [place] [address] [address] [place], [place] [id number] Appointment (Cardiac MRI) Social History Tobacco Use Types Packs/Day Years [...] as of this encounter Progress Notes * Roly Busby - 12/13/2024 1:35 PM ESTAddended by: ROLY BUSBY on: 12/13/2024 01:35 PM Modules accepted: Orders * Roly Busby - 12/13/2024 1:26 PM EST Pt is scheduled for a Cardiac MRI scan on 01/09/25 at 10:00am. [place]. Order and ov note faxed. Letter and lab slip mailed. * Roly Busby - 11/11/2024 9:09 AM EST Order, demos and ov note have been faxed to [facility] scheduling to authorize and schedule pt for a Cardiac MRI scan. They will contact the pt to schedule this appointment. documented in this encounter Plan of Treatment Upcoming Encounters Date Type Department Care Team (Late st Contact Info) Description 01/25/2025 10:10 AM EST Office Visit [facility] [address] [place] [address] [address] [place] [address] Jami Oliver NP [address] [place] [address] [address] [place] [address] 01/31/2025 9:00 AM EST Office Visit [facility] [address] [place] [address] Rosales Burnham MD [address] [place] [address] Scheduled Orders Name Type Priority Associated Diagnoses Orde r Schedule Basic metabolic panel Lab Routine Sinus tachycardia Cardiomyopathy, unspecified type (CMS/HCC) 1 Occurrences starting 12/13/2024 until 12/13/2025 documented as of this encounter Visit Diagnoses Diagnosis Sinus tachycardia- Primary Other specified cardiac dysrhythmias Cardiomyopathy, unspecified type (CMS/HCC) documented in this encounter Care Teams Special Education Teachers Relationship Specialty Start Date End Date Maranda Oakes MD [address] [place] [address] PCP - General 07/11/24 documented as of this encounter
--- OUTSIDE RECORDS SUMMARY | 2025-01-06 12:33 | XMS_ITS | Encounter Summary ---
Author Organization [employer] Address [address] [place] [address] Care Team Providers Care Calciminer Name Role Phone Maranda Oakes MD Primary Care Provider [phone] Reason for Referral * Other Medical (Routine) - Pending Review Specialty Diagnoses / Procedures Referred By Alexi baumann Referred To Contact Sleep Medicine Diagnoses SEEMA (obstructive sleep apnea) Procedures Home sleep test Rosales Burnham MD [address] [address] Referral ID Status Reason Start Date Expiration Date V isits Requested Visits Authorized [id number] Pending Review 12/09/2024 12/09/2025 1 1 * Therapy (Routine) - Closed Specialty Diagnoses / Procedures Referred By Alexi baumann Referred To Contact Pulmonology Diagnoses Pulmonary sarcoidosis ([facility]) Procedures Pulmonary function testing: Carbon Monoxide Diffusing Capacity, Nitrogen Wash Out, Spirometry with Bronchodilator Rosales Burnham MD [address] [address] sp Pulmonary [address] [place] [address] Referral ID Status Reason Start Date Expiration Date Visits Re quested Visits Authorized [id number] Closed 12/09/2024 12/09/2025 1 1 Reason for Visit * Reason Comments Pneumonia 2 mth f/u Pneumoniti s * Consultation (Routine) - Closed Specialty Diagnoses / Procedures Referred By Contac t Referred To Contact Pulmonology Diagnoses Pneumonitis Procedures NV VISIT OFFICE OUTPATIENT ESTABLISHED MODERATE LEVEL Maranda Oakes MD [address] [place] [address] Rosales Burnham MD [address] [address] Referral ID Status Reason Start Date Expiration Date Visits Re quested Visits Authorized [id number] Closed 07/11/2024 07/10/2025 6 7 Encounter Details Date Type Department Care Team (Late st Contact Info) Description 12/09/2024 9:00 AM EST Office Visit Pulmonolgy - [place] [address] [address] Rosales Burnham MD [address] [address] Pulmonary sarcoidosis (CMS/HCC) (Primary Dx); SEEMA (obstructive sleep apnea) Social History Tobacco Use Types Packs/Day Years [...] on file documented as of this encounter Last Filed [...] Mass Index 41.88 12/09/2024 9:08 AM EST documented in this encounter Progress Notes * Rosales Burnham MD - 12/09/2024 9:00 AM EST ADULT PULMONARY CONSULT CHIEF COMPLAINT or REASON FOR CONSULTATION: Pneumonia (2 mth f/u Pneumonitis) HISTORY OF PRESENT ILLNESS: Stefan Ludwig is a 24 y.o. years old, male with a history of asthma and Inflammatory bowel disease on Humira. I saw the patient at [facility] when he was admitted for shortness of breath or hypoxemia. A CT angio showed no PE but diffuse groundglass opacities with dense consolidations as well as significant adenopathy. The patient initially was on FiO2 80%, he was improved rapidly with antibiotics and steroids. The patient's O2 requirement was weaned off to room air after 48 hours from 80%. He was sent home with antibiotics and tapering prednisone. The patient was off the prednisone and worsened. I eventually perform a bronchoscopy that showed noncaseating granuloma. The findings leukoc ytosis immune to Humira induced pneumonitis cannot be excluded. The patient has been put on prednisone with gradual improvement of his symptoms. He had a echocardiogram and saw cardiology since last visit which show evidence of diffuse cardiomyopathy with EF 40%. The Entresto was taken off due to dizziness. The pt is on prednisone 5mg qd ALLERGIES: Allergies Allergen Reactions Entresto [Sacubitril-Valsartan] Dizziness Dizzines,left arm numbness. ACTIVE MEDICATIONS: Outpatient Medications Marked as Taking for the 12/09/24 encounter (Office Visit) with Rosales Burnham MD Medication Sig Dispense Refill albuterol 1.25 mg/3 mL nebulizer solution Take 1 Ampule by nebulization every 6 hours as needed. olmesartan (BENICAR) 20 mg tablet Take 1 tablet (20 mg total) by mouth 1 (one) time each day. omeprazole OTC (PriLOSEC OTC) 20 mg EC tablet predniSONE (DELTASONE) 5 mg tablet Take 2 Tablets by mouth daily for 7 days and then 1 tab po qd x 55 days 65 tablet 1 PROVIDER ATTESTS THAT THE MEDICATION LIST WAS OBTAINED, REVIEWED AND UPDATED. REVIEW OF SYSTEMS: GENERAL: No wt lost or fever, +wt gain ENT: +snoring Eye: RESPIRATORY: + cough, wheezing and dyspnea CARDIOVASCULAR: No chest pain, leg swelling or palpitations GI: No abdominal discomfort, Crohns MUSCULOSKELETAL: +backpain HEMATOLOGY/LYMPHOLOGY No prolonged bleeding, easy bruisability ENDOCRINE: no DM NEURO: No focal weakness : Psych: no depression PAST MEDICAL HISTORY: Patient Active Problem List Diagnosis Date Noted Sinus tachycardia 10/19/2024 Dilated cardiomyopathy (CMS/HCC) 10/19/2024 No past surgical history on file. FAMILY HISTORY: No family history on file. OCCUPATION OR OCCUPATION EXPOSURE: SOCIAL HISTORY Social History Socioeconomic History Marital status: Single Spouse name: Not on file Number of children: Not on file Years of education: Not on file Highest education level: Not on file Occupational History Not on file Tobacco Use Smoking status: Never Passive exposure: Never Smokeless tobacco: Never Substance and Sexual Activity Alcohol use: Never Drug use: Never Sexual activity: Not on file Other Topics Concern Not on file Social History Narrative Not on file IMMUNIZATION: There is no immunization history on file for this patient. PHYSICAL EXAM: Visit Vitals BP (!) 130/92 (BP Location: Left arm, Patient Position: Sitting, BP Cuff Size: Large adult) Pulse 100 Temp 36.4 ??C (97.6 ??F) (Temporal) Resp 20 Ht 1.854 m (73 ) Wt 144 kg (317 lb 6.4 oz) SpO2 95% BMI 41.88 kg/m?? Smoking Status Never BSA 2.62 m?? PPEARANCE: Alert and in no acute distress. overweight EYES: Conjunctiva and sclera normal. NOSE/SINUS: Nares normal. Septum midline. Mucosa No drainage or sinus tenderness. MOUTH/THROAT: no erythema or exudates. Mallampati class 2 NECK: Neck supple, thyroid symmetric and of normal size. HEART: RRR with normal S1 and S2, no murmurs, no gallops, no JVD appreciated. LUNG: CTA b/l, no wheezing or bronchial bs ABDOMEN: Bowel sounds normoactive, soft, non-tender EXTREMITIES: no clubbing, cyanosis, or edema. NEURO: Awake, alert and oriented x 3, no focalization Derm: no rash DIAGNOSTIC DATA: Lab BIRD 65 09/13/24 Date Reported: 08/16/24 : 2000 Age: 23 Lung, right lower lobe-needle core biopsy: -MULTIPLE FRAGMENTS OF BRONCHIAL AND PULMONARY ALVEOLAR TISSUE WITH MULTIPLE NON-CASEATING (SARCOIDAL) GRANULOMAS -GMS and AFB stains: Negative for microorganisms -Polarization microscopy: Negative for foreign material COMMENT: In the absence of a demonstrable infectious etiology, the histological findings could be consistent with SARCOIDOSIS. Clinical correlation is necessary. There are no pathognomonic pathologic findings of drug related lung disease. CARDIOPULMONARY TEST: Echo EF 40% with LVH RADIOLOGIST IMAGIN10/19/24 HISTORY: The patient is a 23-year-old male with recent diagnosis of sarcoidosis. FINDINGS: PA and lateral radiographs of the chest demonstrate normal appearance of the bony structures. The cardiac and mediastinal contours are within normal limits. There is no radiographic evidence of lymphadenopathy. There has been marked improvement in bilateral mid and lower lung infiltrates since the prior examination. Mild residual infiltrates versus postinflammatory scarring are present,particularly around the left hilum and near the right lung base. IMPRESSION: Marked improvement in bilateral mid and lower lung infiltrate since 04/11/2024, with residual infiltrates versus postinflammatory scarring in the left perihilar and right base regions. Code 63416 CT Chest Angiography - 07/12/24 - 0110 Report Status:Signed CT angiogram chest/pulmonary arteries with contrast Multiplanar reconstructions and MIPS Comparison: 06/20/2024 Findings: No filling defects are noted to suggest pulmonary embolus. Main pulmonary artery normal in caliber. Thoracic aorta normal caliber without dissection. Heart size normal. Great vessel origins patent. No coronary calcifications. Worsening nonspecific bilateral consolidation. No significant mediastinal or hilar adenopathy. No acute bony abnormality noted. Impression: No evidence of pulmonary embolus Worsening nonspecific bilateral consolidation ASSESSMENT: ICD-10-CM ICD-9-CM 1. Pulmonary sarcoidosis (CMS/[facility]ERLY [facility]) D86.0 135 Pulmonary function testing: Carbon Monoxide Diffusing Capacity, Nitrogen Wash Out, Spirometry with Bronchodilator 517.8 XR Chest 2 Views PLAN: Pt better, no SOB and CXR showed significant improvement. I will cut prednisone to 5mg Q48hrs. Repeat CXR and get baseline PFT. I will reorder home sleep study - Follow up with Maranda Oakes MD for the other co-morbilities. - I spend 34 Minutes on this visit. The patient was educated about his problems, where assessment and plan was reviewed and explained, All questions were answered. RETURN TO THE NEXT VISIT: Based on physical exam, symptomatology, tests requested and baseline pulmonary evaluation/disease, I instructed the patient to come back to see me in 2 mths for reevaluation after the test has been done or earlier if the patient needed. Thanks Maranda Oakes MD for allowing me to have the opportunity to assist in the care of this patient. documented in this encounter Plan of Treatment Upcoming Encounters Date Type Department Care Team (Late st Contact Info) Description 01/25/2025 10:10 AM EST Office Visit [facility] [address] [place] [address] [address] [place] [address] Jami Oliver NP [address] [place] [address] [address] [place] [address] 01/31/2025 9:00 AM EST Office Visit Pulmonolgy - [place] [address] [place] [address] Rosales Burnham MD [address] [place] [address] Scheduled Orders Name Type Priority Associated Diagnoses Orde r Schedule Home sleep test Sleep Center Routine SEEMA (obstructive sleep apnea) 1 Occurrences starting 12/09/2024 until 12/09/2025 documented as of this encounter Results * Pulmonary function testing: [...] Chest 2 Views (12/09/2024 10:07 AM EST) Anatomical Region Laterality Modality Body Radiographic Sarahi ging 12/09/2024 10:4 2 AM EST Impressions 12/09/2024 10:43 AM EST Normal examination. Code 19627 -------- FINAL REPORT -------- Dictated By: Ivan Costa Dictated Date: 12/09/2024 10:42 ET Assigned Physician: Ivan Costa Reviewed and Electronically Signed By: Ivan Costa Signed Date: 12/09/2024 10:43 ET Workstation ID: [id number] Transcribed By: Self Edit Transcribed Date: 12/09/2024 [...] completely resolvedsince 10/19/2024. IMPRESSION: Normal examination. Code 35722 -------- FINAL REPORT -------- Dictated By: Ivan Costa Dictated Date: 12/09/2024 10:42 ET Assigned Physician: Ivan Costa Reviewed and Electronically Signed By: Ivan Costa Signed Date: 12/09/2024 10:43 ET Workstation ID: [id number] Transcribed By: Self Edit Transcribed Date: 12/09/2024 10:42 ET Rosales Burnham MD IMG XR PROCEDURES documented in this encounter Visit Diagnoses Diagnosis Pulmonary sarcoidosis (CMS/HCC)- Primary Sarcoidosis SEEMA (obstructive sleep apnea) Obstructive sleep apnea (adult) (pediatric) Pulmonary sarcoidosis (CMS/HCC) Sarcoidosis Pulmonary sarcoidosis (CMS/HCC) Sarcoidosis documented in this encounter Historical Medications * This list may reflect changes made after this encounter. Medication Sig Dispensed Refills Start Date End Date olmesartan (BENICAR) 20 mg tablet Take 1 tablet (20 mg total) by mouth 1 (one) time each day. added in this encounter Care Teams Calciminer Relationship Specialty Start Date End Date Maranda Oakes MD [address] [place] [address] PCP - General 07/11/24 documented as of this encounter
--- OUTSIDE RECORDS SUMMARY | 2025-01-06 12:33 | XMS_ITS | Encounter Summary ---
Author Organization [employer] Address [address] [facility] [address] [place] [address] Care Team Providers Care Professor Of Biostatistics Name Role Phone Kriss Woodward MD Primary Care Provider [phone] Maranda Oakes MD Primary Care Provider [phone] Maranda Oakes MD Primary Care Provider [phone]- [phone] Reason for Visit * Reason Comments Med Change Request Encounter Details Date Type Department Care Team ([facility] Contact Info) Description 11/25/2022 Refill [facility] MED & PEDS [address] [place] [address] Kriss Woodward MD [address] [place] [address] Chronic diarrhea Social History Tobacco Use Types Packs/Day Years Used Date Smoking Tobacco: Never Passive Smoke Exposure: Never Smokeless Tobacco: Never Alcohol Use Standard Drinks/Week Comments Never 0 (1 standard drink = 0.6 oz pur e alcohol) Depression Answer Date Recorded Patient Health Questionnaire-9 Score 2 11/25/2022 Depression Answer Date Recorded Patient Health Questionnaire-2 Score 0 11/25/2022 Sex and Gender Information Value Date Recorded Sex Assigned at Male 09/29/2022 10:40 AM EDT Legal Sex Male 10:40 AM EDT Gender Identity Male 09/29/2022 10:40 AM EDT Sexual Orientation Straight 09/29/2022 10 :40 AM EDT COVID-19 Exposure Response Date Recorded In the last 10 days, have yo u been in contact with someone who was confirmed or suspected to have Coronavirus/COVID-19? No / Unsure 11/25/2022 2:38 PM EST documented as of this encounter Plan of Treatment Upcoming Encounters Date Type Department Care Team (Late st Contact Info) Description 01/11/2025 10:00 AM EST Office Visit [facility]ULT D[facility] [address] [place] [address] Richard Enrique [address] [place] [address] documented as of this encounter Visit Diagnoses Diagnosis Chronic diarrhea Diarrhea documented in this encounter Additional Health Concerns Assessment Noted Time PHQ-9 Depression Total Score: 2 11/25/20 22 3:00 PM EST documented as of this encounter Care Teams Professor Of Biostatistics Relationship Specialty Start Date End Date Kriss Woodward MD [address] [place] [address] PCP - General Family Medicine 02/06/23 06/07/24 Maranda Oakes MD [address] [place] [address] PCP - General Internal Medicine 06/08/24 07/04/24 Maranda Oakes MD [address] [place] [address] PCP - General Internal Medicine 07/05/24 documented as of this encounter
--- OUTSIDE RECORDS SUMMARY | 2025-01-06 12:33 | XMS_ITS | Encounter Summary ---
Author Organization [employer] Address [address] [place] [address] Care Team Providers Care Flagman Name Role Phone Maranda Oakes MD Primary Care Provider [phone] Maranda Oakes MD Primary Care Provider [phone] Reason for Visit * Reason Onset Date Comments Referral 06/08/2024 Encounter Details Date Type Department Care Team ([facility] st Contact Info) Description 06/08/2024 Telephone [facility] MEDICINE [address] [place] [address] Kriss Woodward MD [address] [place] [address] Referral Social History Tobacco Use Types Packs/Day [...] * Telephone Encounter - Wagnerrene Akhil - 06/08/2024 11:35 AM EDT Tc from pt partner requesting a referral for vision center, states pt was being seen at [facility] eye and ear and was advised pt needs glasses and annual exam. Please contact at [phone] documented in this encounter Plan of Treatment Upcoming Encounters Date Type Department Care Team (Late st Contact Info) Description 01/11/2025 10:00 AM EST Office Visit [facility] ADULT D[facility] [address] [place] [address] Alexander [facility] [address] [place] [address] documented as of this encounter Visit Diagnoses Not on filedocumented in this encounter Additional Health Concerns Assessment Noted Time PHQ-9 Depression Total Score: 2 11/25/20 22 3:00 PM EST documented as of this encounter Care Teams Flagman Relationship Specialty Start Date End Date Maranda Oakes MD [address] [place] [address] PCP - General Internal Medicine 06/08/24 07/04/24 Maranda Oakes MD [address] [place] [address] PCP - General Internal Medicine 07/05/24 documented as of this encounter
--- OUTSIDE RECORDS SUMMARY | 2025-01-06 12:33 | XMS_ITS | Encounter Summary ---
Author Organization [employer] Address [address] [place] [address] Care Team Providers Care Solid Tire Tuber Machine Operator Name Role Phone Maranda Oakes MD Primary Care Provider [phone] Encounter Details Date Type Department Care Team (Latest Contact Info) Description 12/09/2024 9:49 AM EST - 12/09/2024 11:59 PM [facility] Hospital Encounter [facility] Xray [address] [place] [address] Pulmonary sarcoidosis (CMS/HCC) Discharge Disposition: Home or Self Care Social History Tobacco Use Types Packs/Day Years [...] on file documented as of this encounter Medications at Time of Discharge Medication Sig Dispensed Refills Start Date End Date albuterol 1.25 mg/3 mL nebulizer solution Take 1 Ampule by nebulization every 6 hours as needed. olmesartan (BENICAR) 20 mg tablet Take 1 tablet (20 mg total) by mouth 1 (one) time each day. omeprazole OTC (PriLOSEC OTC) 20 mg EC tablet 07/19/2024 07/14/2025 sacubitriL-valsartan (ENTRESTO) 24-26 mg per tabletIndications:Car diomyopathy, unspecified type (CMS/HCC) Take 1 tablet by mouth 2 (two) times a day. 60 each 11 10/19/2024 10/19/2025 predniSONE (DELTASONE) 5 mg tablet Take 2 Tablets by mouth daily for 7 days and then 1 tab po qd x 55 days 65 tablet 1 10/20/2024 12/16/2024 documented as of this encounter Discharge Disposition Disposition Code Departure Means Destination Home or Self Care documented in this encounter Plan of Treatment Upcoming Encounters Date Type Department Care Team (Late st Contact Info) Description 01/25/2025 10:10 AM EST Office Visit [facility] [address] [place] [address] Jami Oliver NP [address] [place] [address] [address] [place] [address] 01/31/2025 9:00 AM EST Office Visit Pulmonolgy - [place] [address] [facility] [address] [place] [address] Rosales Burnham MD [address] [facility] [address] [address] [place] [address] documented as of this encounter Procedures Procedure Name Priority Date/Time Associated Diagnosis Comments XR CHEST 2 VIEWS Routine 12/09/2024 10:0 7 AM EST Pulmonary sarcoidosis (CMS/HCC) documented in this encounter Results * XR Chest 2 Views (12/09/2024 10:07 AM EST) Anatomical Region Laterality Modality Body Radiographic Sarahi ging 12/09/2024 10:4 2 AM EST Impressions 12/09/2024 10:43 AM EST Normal examination. Code 72200 -------- FINAL REPORT -------- Dictated By: Ivan Costa Dictated Date: 12/09/2024 10:42 ET Assigned Physician: Ivan Costa Reviewed and Electronically Signed By: Ivan Costa Signed Date: 12/09/2024 10:43 ET Workstation ID: [id number] Transcribed By: Self Edit Transcribed Date: 12/09/2024 [...] completely resolvedsince 10/19/2024. IMPRESSION: Normal examination. Code 68313 -------- FINAL REPORT -------- Dictated By: Ivan Costa Dictated Date: 12/09/2024 10:42 ET Assigned Physician: Ivan Costa Reviewed and Electronically Signed By: Ivan Costa Signed Date: 12/09/2024 10:43 ET Workstation ID: [id number] Transcribed By: Self Edit Transcribed Date: 12/09/2024 10:42 ET Rosales Burnham MD IMG XR PROCEDURES documented in this encounter Visit Diagnoses Diagnosis Pulmonary sarcoidosis (CMS/HCC) Sarcoidosis documented in this encounter Care Teams Solid Tire Tuber Machine Operator Relationship Specialty Start Date End Date Maranda Oakes MD [address] [place] [address] PCP - General 07/11/24 documented as of this encounter
--- OUTSIDE RECORDS SUMMARY | 2025-01-06 12:34 | XMS_ITS | Encounter Summary ---
Author Organization [employer] Address [address] [facility] [address] [place] [address] Care Team Providers Care Bee Raiser Name Role Phone Kriss Woodwadr MD Primary Care Provider [phone] Maranda Oakes MD Primary Care Provider [phone] Maranda Oakes MD Primary Care Provider [phone] Reason for Visit * Reason Onset Date Comments Nurse Triage 02/01/2024 Encounter Details Date Type Department Care Team ([facility] st Contact Info) Description 02/01/2024 Telephone [facility] CHC MED & PEDS [address] [place], [place] [phone] Kriss Woodward MD [address] [place], [place] Nurse Triage Social History Tobacco Use Types Packs/Day Years [...] encounter Miscellaneous Notes * Telephone Encounter - Sherita Alejandre RN - 02/01/2024 4:04 PM EST Called pt. His answered phone and states that BP has not gone down since starting new BP medication. 155/99. 146/87, 149/100, 153/99, 150/92 143/90 Pulse has been between 89-101. These are readings from past week since starting BP medication Norvasc 5mg once in am. Pt. states pt. Has had side effects of lightheadedness but no other sx. No chest pain, no SOB, no other sx. Please advise as to whether you want dosage increase on med. As states provider wanted a call back with BP readings. Protocol Used: Blood Pressure - High (Adult) Protocol-Based Disposition: See in Office or Video Visit within 2 Weeks- Please advise. Video visit not offered Positive Triage Question: * Systolic BP >= 130 OR Diastolic >= 80, and is taking BP medications * All higher-acuity triage questions were negative Care Advice Discussed: * High Blood Pressure - Lifestyle Modifications * How to Check Your Blood Pressure? * Telephone Encounter - Phyllis Burr - 02/01/2024 3:58 PM EST Symptom: High Blood Pressure - Caller Reports Outcome: Schedule an urgent appointment (within 1 hour) or talk to a nurse or provider soon Reason: Getting worse, medication given is not working The caller accepted this outcome Please contact pt spouse at [phone] documented in this encounter Plan of Treatment Upcoming Encounters Date Type Department Care Team (Late st Contact Info) Description 01/11/2025 10:00 AM EST Office Visit [facility] [address] [place] [address] Alexander Enriquepreet [address] [place] [address] documented as of this encounter Visit Diagnoses Not on filedocumented in this encounter Additional Health Concerns Assessment Noted Time PHQ-9 Depression Total Score: 2 11/25/20 22 3:00 PM EST documented as of this encounter Care Teams Bee Raiser Relationship Specialty Start Date End Date Kriss Woodward MD [address] [place] [address] PCP - General Family Medicine 02/06/23 06/07/24 Maranda Oakes MD [address] [place] [address] PCP - General Internal Medicine 06/08/24 07/04/24 Maranda Oakes MD [address] [place] [address] PCP - General Internal Medicine 07/05/24 documented as of this encounter
--- OUTSIDE RECORDS SUMMARY | 2025-01-06 12:34 | XMS_ITS | Encounter Summary ---
Author Organization [employer] Address [address] [facility] [address] [place] [address] Care Team Providers Care Associate Product Integrity Engineer Name Role Phone Maranda Oakes MD Primary Care Provider [phone] Maranda Oakes MD Primary Care Provider [phone] Reason for Visit * Reason Onset Date Comments Hospital Follow-up 06/22/2024 Encounter Details Date Type Department Care Team ([facility] st Contact Info) Description 06/22/2024 Telephone [facility] [address] [place] [address] Maranda Oakes MD [address] [place] [address] Hospital Follow-up Social History Tobacco Use Types Packs/Day Years [...] encounter Miscellaneous Notes * Telephone Encounter - Rola Doll - 06/22/2024 3:12 PM EDT Tc from pt requesting a HDF appt. Hospital: [facility] Date of admission: 06/20 Discharge date: 06/23 Diagnosed: No further details provided documented in this encounter Plan of Treatment Upcoming Encounters Date Type Department Care Team (Late st Contact Info) Description 01/11/2025 10:00 AM EST Office Visit [facility] [address] [place] [address] Alexander Enriquealberta [address] [place] [address] documented as of this encounter Visit Diagnoses Not on filedocumented in this encounter Additional Health Concerns Assessment Noted Time PHQ-9 Depression Total Score: 2 11/25/20 3:00 PM EST documented as of this encounter Care Teams Associate Product Integrity Engineer Relationship Specialty Start Date End Date Maranda Oakes MD [address] [place] [address] PCP - General Internal Medicine 06/08/24 07/04/24 Maranda Oakes MD [address] [place] [address] PCP - General Internal Medicine 07/05/24 documented as of this encounter
--- OUTSIDE RECORDS SUMMARY | 2025-01-06 12:34 | XMS_ITS | Encounter Summary ---
Author Organization [employer] Address [address] [facility] 7[address] [place] [address] Care Team Providers Care Jack Machine Operator Name Role Phone Kriss Woodward MD Primary Care Provider Maranda Oakes MD Primary Care Provider [phone] Maranda Oakes MD Primary Care Provider [phone] Reason for Visit * Reason Onset Date Comments Appointment 03/11/2023 Encounter Details Date Type Department Care Team ([facility] st Contact Info) Description 03/11/2023 Telephone [facility] [address] [place], [place] [phone] Richa Velasquez, FRANCESS [address] [place] [address] Appointment Social History Tobacco Use Types Packs/Day Years [...] encounter Miscellaneous Notes * Telephone Encounter - Colette Avila - 03/11/2023 9:18 AM EDT Patient called in checking in on status of appt. He has been on waitlist in [facility] since 12/2021. He would like to be scheduled DR documented in this encounter Plan of Treatment Upcoming Encounters Date Type Department Care Team (Late st Contact Info) Description 01/11/2025 10:00 AM EST Office Visit [facility] [address] [place] [address] Alexander Enriquepremisty [address] [place] [address] documented as of this encounter Visit Diagnoses Not on filedocumented in this encounter Additional Health Concerns Assessment Noted Time PHQ-9 Depression Total Score: 2 11/25/20 22 3:00 PM EST documented as of this encounter Care Teams Jack Machine Operator Relationship Specialty Start Date End Date Kriss Woodward MD [address] [place] [address] PCP - General Family Medicine 02/06/23 06/07/24 Maranda Oakes MD [address] [place] [address] PCP - General Internal Medicine 06/08/24 07/04/24 Maranda Oakes MD [address] [place] [address] PCP - General Internal Medicine 07/05/24 documented as of this encounter
[2025-01-06 12:44] LABS: Anion Gap 17 (12-20); Anion Gap 8 (12-20); Blood Urea Nitrogen 10 mg/dL (9-16); Calcium 9.4 mg/dL (8.4-10.2); Calcium 9.5 mg/dL (8.4-10.2); Carbon Dioxide 24 mmol/L (22-29); Carbon Dioxide 25 mmol/L (22-29); Chloride 105 mmol/L (96-108); Chloride 109 mmol/L (96-108); Estimated Glomerular Filt Rate > 60; Glucose Fasting 88 mg/dL (60-99); Glucose Random 88 mg/dL (60-115); Potassium 4.1 mmol/L (3.3-5.1); Potassium 4.2 mmol/L (3.3-5.1); Sodium 138 mmol/L (135-145); Sodium 142 mmol/L (135-145)
== END 2025-01-06 11:32 | disposition home or self-care (01) ==
LOC: HO.LAB 11:31
PROVIDERS: Absent Provider Internal Medicine Cardiovascular Disease; PCP Internal Medicine; Visit Provider Internal Medicine
DX: R00.0 Tachycardia, unspecified (principal); I42.9 Cardiomyopathy, unspecified; R19.7 Diarrhea, unspecified
CPT/HCPCS: 36415; 80048; 85025

== ENCOUNTER 2025-03-07 14:45 | Outpatient (AMB) | payer MEDICAID, SELFPAY ==
--- NOTE | 2025-03-07 14:48 | MHC.OFFVIS ---
Vital Signs 03/07/25 15:04 Height 6 ft 1 in Weight 333 lb 5.423 oz BMI 44.0 BP 144/88 H Blood Pressure Location Lt brachial Position Sitting Pulse 98 Pulse Source Pulse Oximeter Pulse Oximetry (%) 96 Oxygen Delivery Method Room Air Intake Visit Reasons: ED f/u will be around 240 Intake Note: ESTABLISHED PATIENT for ER FUV from December. April Notes on file. TIFFANY w/ [facility] 10/2023. Chief Complaint; C/O fecal abn, malabsorption, digestion/motility issues, N+V. Pt states that he has returned to his baseline with Crohn's as he is off of all his GI meds per various adverse reactions. Pt has been admitted multiple times for various cardiovascular and respiratory concerns. Pt is hoping that we can re-est therapy for Crohn's today. Motion Picture Camera Lens Technician Required: No Accompanied by: Significant Other Allergies adalimumab [From Humira] Allergy (Severe, Verified 03/20/25 19:40) sarcoidosis bee venom protein (honey bee) Allergy (Severe, Verified 03/07/25 14:55) Anaphylaxis sacubitril [From Entresto] Adverse Reaction (Severe, Verified 03/07/25 14:55) Numbness valsartan [From Entresto] Adverse Reaction (Severe, Verified 03/07/25 14:55) Numbness HPI HPI ED f/u will be around 240: Details: LAST VISIT 11/04/2023 Diarrhea Rectal bleeding Elevated C-reactive protein (CRP) Crohn disease Plan Awaiting kemar ford approval. Patient will go check calprotectin before starting the treatment. We expect the numbers to be down some. Patient symptoms are better even though he just recently stopped taking sulfasalazine. PA enrrique Cortez filled out by patient's given to LUIS EDUARDO Quiñones. I will see patient in 3 months, sooner on as needed basis. Patient is agreeable to this plan and verbalizes understanding of instructions. He was given the opportunity to ask questions and all questions answered. ? Thank you for allowing me to participate in his care Orders Orders Calprotectin, Fecal Today R15.9 TODAY'S VISIT Patient is here today for requested visit and is accompanied by his . Patient had last visit back in October of 2023. Patient has not followed up in the office and did not showed for few appointments. states that multiple times phone calls were made to the office, however I do not see anything in activity. Every phone call is marked in workload and non of that is present. There is note only once reported by district medical examiner that appointment was canceled and for patient to call back to reschedule. And hours back in December of 2023. Skyrizi was never approved and patient was started on Humira. Patient developed severe respiratory symptoms as well as cardiac symptoms and was diagnosed with sarcoidosis. Patient had multiple ED visits and admissions. Patient has ui software developer that he follows and was placed on long-term prednisone. Patient reports that he was on prednisone for several months and was seen cylinder honer in [place]. Planer Setup Operator discontinue the prednisone as patient no longer needed to stay on the medication. Patient was never followed by GI, however denies having any GI concerning symptoms, except for occasional acid reflux. Given that patient was on prednisone for such a long time his Crohn's was in remission and continues to be so. Patient is currently off prednisone for about a month. He would be safe to get started on mesalamine, however I would like for him to get fecal calprotectin to make sure that he in fact is in remission. Patient gained 50 lb since he was started on prednisone. Patient denies any GI concerning symptoms today or in the past few months [facility] Medical History (Updated 03/20/25 @ 19:42 by Guillermina Mccall [facility]) Sarcoidosis of lung Obesity Asthma Surgical History Hx of colonoscopy History of esophagogastroduodenoscopy (EGD) History of hand surgery S/P eye surgery Family History Mother HTN (hypertension) Diabetes Anemia Maternal Grandmother Anemia Diabetes HTN (hypertension) Lung cancer Social History Household Members: Significant Other and Children Alcohol intake: never Patient Tobacco Use Status: Never used Tobacco Review of Systems Const Denies weight gain and Denies weight loss ENT Reports no additional complaints, Denies dysphagia and Denies odynophagia Card Reports no additional complaints Resp Reports no additional complaints GI Denies abdominal pain, Denies belching, Denies melena, Denies bloating, Denies hematochezia, Denies constipation, Denies dysphagia, Denies excessive flatus, Denies dyspepsia, Denies heartburn, Denies diarrhea, Denies loose stools, Denies nausea, Denies odynophagia and Denies vomiting Reports no additional complaints Musc Reports no additional complaints Neuro Reports no additional complaints Psych Reports no additional complaints Endo Reports no additional complaints Physical Exam Vital Signs: Last Vital Signs Pulse 98 03/07/25 15:04 BP 144/88 H 03/07/25 15:04 Pulse Ox 96 03/07/25 15:04 Oxygen Delivery Method Room Air 03/07/25 15:04 BMI result Body Mass Index 44.0 Const General: healthy appearing, no acute distress and well developed Nutritional Appearance: obese Orientation/consciousness: patient oriented x3 HEENT Head: Yes normal to inspection, Yes normocephalic and Yes atraumatic Face and sinus: Yes normal facial exam Mouth: Normal oral and palatal mucosa present Throat: Yes posterior oropharynx normal, Yes tonsils normal and Yes uvula midline Eyes General: appearance normal, both eyes and all related structures Neck Neck: Yes normal visual inspection, Yes full ROM and Yes trachea midline Thyroid: Thyroid normal Resp Effort & Inspection: normal respiratory effort, able to speak in complete sentences, no tracheal deviation and symmetric chest movement Auscultation: clear to auscultation bilaterally Cardio Rate: regular rate GI Inspection: Yes normal to inspection, No distended and Yes obesity Palpation (GI): Soft to palpation, not firm, nontender and No hepatosplenomegaly present Auscultation: normal bowel sounds General: Yes no CVA tenderness Back/Spine/Pelvis Back: no CVA tenderness Skin General skin exam: elasticity normal, turgor normal and dry skin Neuro General: patient oriented x3 Psych Appearance: grossly normal Mental Status: mental status grossly normal Affect: normal affect Assessment & Plan Assessment & Plan (1) Crohn disease: Code(s): K50.90 - Crohn's disease, unspecified, without complications (2) Sarcoidosis of lung: Code(s): D86.0 - Sarcoidosis of lung Category: Medical Plan: Most likely after being started with Humira. Patient has not followed up closely in our office even though he had appointment every 3 months. Multiple admissions at [facility], long-term prednisone therapy. Currently patient is cleared off prednisone and followed by pulmonology. 15 minutes spent reviewing records from [place] from multiple admissions and ED visits. Long discussion with patient about the importance of following up after being placed on this type of the medication. Plan Patient will be sent for CT enterography. We were able to get patient urgent appointment, however patient's reports that she is unable to bring him to that appointment [facility] to [facility]. Urge patient to bring stool study to check for review fecal calprotectin. Will start him on mesalamine daily. Patient can start taking Nexium as he occasionally you will have epigastric pain and reflux. Recent long-term therapy with prednisone, weight gain which also can be contributing to his reflux patient was encouraged to try to lose weight. He will follow-up with us in 4 weeks. He will call us if he will have any GI concerning symptoms. Both patient and his are agreeable to plan of care and verbalizes understanding of instructions. They were given the opportunity to ask questions and all questions answered. Thank you for allowing me to participate in his care Orders: Orders CT enterography 03/07/25 R19.5 - Other fecal abnormalities, R79.82 - Elevated C-reactive protein (CRP), K50.90 - Crohn's disease, unspecified, without complications Blood Urea Nitrogen 03/07/25 R10.11 - Right upper quadrant pain Calprotectin, Fecal 03/07/25 R15.9 - Full incontinence of feces Creatinine 03/07/25 R10.11 - Right upper quadrant pain Medications: New esomeprazole magnesium (Nexium) 40 mg PO DAILY 90 caps 3RF K21.9 - Gastro-esophageal reflux disease without esophagitis mesalamine (Lialda) 2.4 grams (2 x 1.2 gram) PO DAILY 180 tabs 4RF 3 months K50.90 - Crohn's disease, unspecified, without complications Coding Level of Care Code Est Pt Level 5 (92645) Complex EM visit Add On G2211 Diagnoses Crohn disease K50.90 Sarcoidosis of lung D86.0 Time Spent (min) 50 Comment 35 minutes spent with patient and additional 15 minutes spent reviewing his records
[2025-03-07 15:04] VITALS: BP 144/88; PULSE 98; O2SAT 96; BMI 44.0
--- OUTSIDE RECORDS SUMMARY | 2025-03-07 17:50 | XMS_ITS | Encounter Summary ---
Author Organization [employer] Address [address] [facility] [facility] [address] [place] [address] Care Team Providers Care Electric Plater Name Role Phone Maranda Oakes MD Primary Care Provider [phone] Richard Enrique Unavailable [phone] Encounter Details Date Type Department Care Team ([facility] Contact Info) Description 08/15/[address] [facility] [address] [place] [address] Provider, MD Srinath Social History Tobacco Use [...] as of this encounter Plan of Treatment Not on file documented as of this encounter Procedures Procedure [...] as of this encounter Care Teams Electric Plater Relationship Specialty Start Date End Date Maranda Oakes MD [address] [place] [address] PCP - General Internal Medicine 07/05/24 Richard Enrique [address] [place] [address] Dental Hedis Coordinator 01/25/25 documented as of this encounter
--- OUTSIDE RECORDS SUMMARY | 2025-03-07 17:50 | XMS_ITS | Encounter Summary ---
Author Organization [employer] Address [address] [facility] [address] [place] [address] Care Team Providers Care Quality Officer Name Role Phone Maranda Oakes MD Primary Care Provider [phone] Richard Enrique Unavailable [phone] Encounter Details Date Type Department Care Team ([facility] Contact Info) Description 12/09/2024 Orders Only [facility] [address] [place], [place] [phone] Provider, MD Srinath Social History Tobacco Use [...] Chest Radiographic Sarahi ging us Historical Provider MD VALDOVINOS XR PROCEDURES Final R esult documented in this encounter Visit Diagnoses Not on filedocumented in this encounter Additional Health Concerns Assessment Noted Time PHQ-9 Depression Total Score: 2 11/25/20 22 3:00 PM EST documented as of this encounter Care Teams Quality Officer Relationship Specialty Start Date End Date Maranda Oakes MD [address] [place] [address] PCP - General Internal Medicine 07/05/24 Richard Enrique [address] [place] [address] Dental Carpenter Repairer 01/25/25 documented as of this encounter
--- OUTSIDE RECORDS SUMMARY | 2025-03-07 17:50 | XMS_ITS | Clinical Summary ---
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 Medications EPINEPHrine (Epipen) 0.3 MG/0.3ML injection syringeIndicati ons:Anaphylacti c reaction to bee sting, undetermined intent, sequela Inject 0.3 mL (0.3 mg) as directed 1 (one) time for 1 dose. use as directed for allergic reaction and then call 911 1 each 022 Active Blood Pressure kitIndications: Elevated blood pressure reading 1 kit in the morning. 1 kit 022 Active pantoprazole (ProtoNix) 40 MG EC tablet TAKE 1 TABLET BY MOUTH DAILY 1/2 HOUR BEFORE BREAKFAST 023 Active albuterol 108 (90 Base) MCG/ACT inhalerIndicati ons:Mild persistent asthma, unspecified whether complicated Inhale 2 puffs every 4 (four) hours if needed for wheezing. 18 g 5 023 Active loratadine (Claritin) 10 MG tabletIndicatio ns:Irritant contact dermatitis due to other chemical products TAKE 1 TABLET BY MOUTH EVERY DAY IN THE MORNING 90 tablet 1 024 Active Mometasone Furoate (Asmanex, 120 Metered Doses,) 220 MCG/ACT aerosol powderIndicatio ns:Mild persistent asthma, unspecified whether complicated Inhale 220 mcg Once per day. 1 each 3 Active ipratropium-alb uterol (Duo-Neb) 0.5-2.5 mg/3 mL nebulizer solution Take 3 mL by nebulization Every 4-6 hours as needed for wheezing or shortness of breath. 024 Active olmesartan (BENIcar) 20 MG tablet Take 1 tablet (20 mg) by mouth in the morning. 90 tablet 1 025 Active olmesartan (BENIcar) 20 MG tablet Take 1 tablet (20 mg) by mouth in the morning. 90 tablet 1 024 2024 Discontinued(R eorder (will not trigger notification to Pharmacy)) Active Problems Problem Noted Date Diagnosed Date Asthma 01/26/2025 Sinus tachycardia 10/19/2024 Keratoconus of both eyes 08/15/2024 Primary hypertension [...] available for review at this moment from [facility], reports had CT scan of the abdomen, [...] Encounters Date Type Department Care Team Description 02/22/2025 Population Health Risk Score [facility] (C3) Department [address] [id number] Provider, Population Health Generic 02/15/2025 Refill [facility] [address] [place] [address] Maranda Oakes MD 01/26/2025 10:00 AM EST Office Visit [facility] [address] [place] [address] Richard Enrique 01/11/2025 10:00 AM EST Office Visit [facility] [address] [place] [address] Richard Enrique 01/06/2025 Orders Only GENERIC EXTERNAL DATA DEPARTMENT Provider, Generic External Data 12/26/2024 11:00 AM EST Office Visit [facility] [address] [place] [address] Vicente Oakes Dental calculus (Primary Dx) 12/09/2024 Orders Only [facility] [address] [place], [place] [phone] Provider, MD Srinath from Last 3 Months [...] Sign Reading Time Taken Comments Blood Pressure 125/70 01/26/2025 10:21 AM EST Pulse 65 12/26/2024 11:01 AM [...] 12/02/2024 1:52 PM EST Plan of Treatment Health Maintenance Due Date Last Done Comments Alcohol/Substance Use Screening 2010 Family Planning (PISQ) 2013 Pneumococcal Vaccine: Pediatrics (0 to 5 Years) and At-Risk Patients (6 to 49) Years) (1 of 2 - PCV) 2017 Hepatitis A Vaccines (2 of 2 - 2-dose series) 05/11/2018 11/10/2017 Depression Screening 11/25/2023 11/25/2022, 11/25/20 22 COVID-19 Vaccine ( season) 2024 Influenza Vaccine (#1) 2024 7, 08/08/2016, 08/08/2016, Additional history exists SDOH Screening 02/14/2025 02/15/2024 Dental Oral Exam 06/26/2025 12/26/2024 Dental Prophylaxis 06/26/2025 12/26/2024 Dental X-Ray: Bitewings 12/27/2025 12/26/2024 Tobacco Screening 01/26/2026 01/26/2025 DTaP/Tdap/Td Vaccines (8 - Td or Tdap) 11/11/2027 11/11/2017, 07/15/2013, 12/13/2002, Additional history exists Dental X-Ray: Full Mouth 12/27/2027 12/26/2024 Lipid Panel 03/19/2029 03/19/2024 Zoster Vaccines (1 of 2) 2048 RSV Patients and Patients Aged 60 years or older (1 - 1-dose 75+ series) 2073 Hepatitis B Vaccines Completed 06/18/1999, 04/15/1999, 02/13/1999 HIB Vaccines Completed 02/26/2000, 05/31, 04/15/1999, Additional history exists IPV Vaccines Completed 12/13/2002, 05/31, 04/15/1999, Additional history exists HPV Vaccines Completed 07/24/2014, 10/30, 07/15/2013 Meningococcal Vaccine Completed 08/08/2016 , 08/08/2016, 08/13/2012 HIV Screening Completed 01/26/2023 Hepatitis C Screening Completed 01/26/2023 RSV under 20 months Aged Out No longe r eligible based on patient's age to complete this topic Rotavirus Vaccines Aged Out No longer eligible based on patient's age to complete this topic Procedures Procedure Name Priority Date/Time Associated Diagnosis Comments CASE PRESENTATION, DETAILED AND EXTENSIVE TREATMENT PLANNING Routine 01/26/2025 10:00 AM EST 4 DO RESIN-BASED COMPOSITE - 2 SURF, POSTERIOR Routine 01/26/2025 10:00 AM EST 3 LO RESIN-BASED COMPOSITE - 2 SURF, POSTERIOR Routine 01/11/2025 10:00 AM EST BASIC METABOLIC PANEL Routine 01/06/2025 11:56 AM EST CBC WITH AUTO DIFFERENTIAL Routine 01/06/2025 11:56 AM EST Diarrhea, unspecified type BASIC METABOLIC PANEL, FASTING Routine 01/06/2025 11:56 AM EST Diarrhea, unspecified type COMPREHENSIVE ORAL EVALUATION - NEW OR ESTABLISHED PATIENT Routine 12/26/2024 11:00 AM EST ORAL HYGIENE INSTRUCTIONS Routine 12/26/2024 11:00 AM EST INTRAORAL - COMPLETE SERIES OF RADIOGRAPHIC IMAGES Routine 12/26/2024 11:00 [...] VIEWS Routine 12/09/2024 11:1 8 AM EST LIPID PANEL, STANDARD Routine 03/19/2024 11:00 AM EDT Primary hypertension Morbid obesity (CMS/HCC) HEPATITIS PANEL, GENERAL Routine 01/26/2023 3:30 PM EST HIV ANTIBODY/ANTIGEN ([place] DPH) Routine 01/26/2023 3:30 PM EST from Last 3 Months or Most Recently Relevant to Health Maintenance Results * (ABNORMAL) Basic Metabolic Panel, Fasting (01/06/2025 11:56 AM EST) Sodium 138 135 - 145 mmol/L [facility] Potassium 4.1 3.3 - 5.1 mmol/L [facility] Chloride 109(H) 96 - 108 mmol/L [facility] Carbon Dioxide 25 22 - 29 mmol/L [facility] Anion Gap 8(L) 12 - 20 [facility] Urea Nitrogen (BUN) 10 9 - 16 mg/dL [facility] Creatinine, Serum 0.83 0.5 - 1.4 mg/dL [facility] Estimated Glomerular Filt Rate >60 [facility] Comment:Chronic Kidney Disea se: Estimated GFR < 60 mL/min/[id number] Kidney Disease: Estimated GFR < 15 mL/min/1.73m2 Glucose Fasting 88 60 - 99 mg/dL [facility] Calcium 9.5 8.4 - 10.2 mg/dL [facility] Blood Venous blood specimen / Unknown 01/06/2025 11:56 AM EST 01/06/2025 11:56 AM EST Maranda Oakes MD LAB BLOOD ORDERABLES Final Result [facility] [address] [place] [phone] * (ABNORMAL) CBC auto differential (01/06/2025 11:56 AM EST) White Blood Count 5.5 4.8 - 10.8 X10*3/uL [facility] Red Blood Count 5.31 4.60 - 5.80 X10*6/uL [facility] Hemoglobin 15.1 14.0 - 18.0 g/dl [facility] Hematocrit 45.5 42.0 - 52.0 % [facility] Mean Corpuscular Volume 85.7 80.0 - 98.0 fL [facility] Mean Corpuscular Hemoglobin 28.4 27.0 - 33.0 pg [facility] Mean Corpuscular HGB Conc 33.2 31.0 - 36.0 g/dl [facility] Red Cell Distribution Width 12.9 11.0 - 16.0 % [facility] Platelet Count 314 160 - 400 X10*3/uL [facility] Mean Platelet Volume 9.3(L) 9.4 - 12.4 fL [facility] Neutrophils Percent Auto 59.7 45 - 73 % [facility] Imm Gran Pct Auto 0.5(H) 0.0 - 0.4 % [facility] Lymphocytes Percent Auto 26.3 20 - 40 % [facility] Monocytes Percent Auto 9.6 2 - 11 % [facility] Eosinophils Percent Auto 3.4 0 - 4 % [facility] Basophils Percent Auto 0.5 0 - 2 % [facility] NRBC Pct Auto 0.0 0.0 - 0.2 /100WBC [facility] Neutrophils Absolute Auto 3.3 2.0 - 8.3 x10*3/uL [facility] Imm Gran Abs Auto 0.03 0.00 - 0.03 X10*3/uL [facility] Lymphocytes Absolute Auto 1.5 1.2 - 4.9 X10*3/uL [facility] Monocytes Absolute Auto 0.5 0.1 - 1.2 X10*3/uL [facility] Eosinophils Absolute Auto 0.2 0.0 - 0.4 X10*3/uL [facility] Basophils Absolute Auto 0.0 0.0 - 0.2 X10*3/uL [facility] NRBC Abs Auto 0.000 0.0 - 0.012 X10*3/uL [facility] Blood Venous blood specimen / Unknown 01/06/2025 11:56 AM EST 01/06/2025 11:56 AM EST us Maranda Oakes MD LAB BLOOD ORDERABLES Final Result [facility] [address] [place] [phone] * Basic Metabolic Panel (01/06/2025 11:56 AM EST) Sodium 142 135 - 145 mmol/L [facility] Potassium 4.2 3.3 - 5.1 mmol/L [facility] Chloride 105 96 - 108 mmol/L [facility] Carbon Dioxide 24 22 - 29 mmol/L [facility] Anion Gap 17 12 - 20 [facility] Urea Nitrogen (BUN) 10 9 - 16 mg/dL [facility] Creatinine, Serum 0.82 0.5 - 1.4 mg/dL [facility] Estimated Glomerular Filt Rate >60 [facility] Comment:Chronic Kidney Disea se: Estimated GFR < 60 mL/min/[id number] Kidney Disease: Estimated GFR < 15 mL/min/1.73m2 Glucose 88 60 - 115 mg/dL [facility] Calcium 9.4 8.4 - 10.2 mg/dL [facility] 01/06/2025 11:5 6 AM EST 01/06/2025 11:56 AM EST us Generic External Data Provider LAB BLOOD ORDERAB LES Final Result [facility] [address] [place] [phone] * XR Chest 2 Views (12/09/2024 11:18 AM EST) Anatomical Region Laterality Modality Chest Radiographic Sarahi ging Historical Provider IMG XR PROCEDURES Final R esult * (ABNORMAL) Lipid Panel, Standard (03/19/2024 11:00 AM EDT) Triglycerides 69 <150 mg/dL [facility] Comment:Desirable Triglyceri de: less than 150 mg/dLBorderline High Triglyceride 150-199 mg/dLHigh Triglyceride: 200-499 mg/dLVery High Triglyceride: greater than or equal to 5OO mg/dL Cholesterol 158 <200 mg/dL [facility] Comment:Desirable Cholestero l: less than 200 mg/dLBorderline High Cholesterol: 200-239 mg/dLHigh Cholesterol: greater than 239 mg/dL LDL Cholesterol Calculated 111(H) <100 mg/dL [facility] Comment:Desirable LDL: less than 100 mg/dLNear Optimal/Above Optimal LDL: 110- 129 mg/dLBorderline High LDL: 130-159 mg/dLHigh LDL: 160-189 mg/dLVery High LDL: greater than or equal to 190 mg/dL HDL Cholesterol 34(L) >40 mg/dL [facility] Comment:Desirable HDL: great er than 40 mg/dL Note: This HDL assay may give artificially low results in patients with liver disease. Blood Venous blood specimen / Unknown 03/19/2024 11:00 AM EDT 03/19/2024 11:00 AM EDT us Thevenin Beauzile MD LAB BLOOD ORDERABLES Final Result Performing Organization Address [facility]/ZIP Co de Phone Number [facility] [address] [place] [phone] [phone] * HIV Ab/Ag ([place]EE [place]OR) (01/26/2023 3:30 PM EST) HIV AB/AG Nonreactive Nonreactive [facility] Comment:HIV-1 p24 Ag and/or HIV-1/HIV-2 Ab not detected.A test result that is nonreactive does not exclude thepossibility of exposure to or infection with HIV-1 and/orHIV-2. Nonreactive results in this assay for individualswith prior exposure to HIV-1 and/or HIV-2 may be due toantigen and antibody levels that are below the limit ofdetection of this assay.[facility] HIV Ag/Ab Combo assay result andsupplemental assay results should be interpreted inconjunction with the patient's clinical presentation,history and other laboratory results. If the results areinconsistent with clinical evidence, additional testing issuggested to confirm the result. 01/26/2023 3:30 PM EST 01/26/2023 3:30 PM EST [facility] External Provider LAB BLO OD ORDERABLES Final Result Performing Organization Address [facility] Co de Phone Number [facility] [address] [place] [phone] * Hepatitis Panel, General (01/26/2023 3:30 PM EST) Hepatitis A IgM Nonreactive Nonreactive [facility] Comment:IgM antibodies to ESPARZA V not detected; does not exclude earlyacute or recovered HAV infection. ~Hepatitis B Surface Antibody NONREACTIVE Nonreactive [facility] Comment:Nonreactive: < 8.00 mIU/mL Hepatitis B Core Antibody Nonreactive Nonreactive [facility] Hepatitis C Antibody Nonreactive Nonreactive [facility] Comment:Antibodies to HCV no t detected; does not exclude early acuteHCV infection. Hepatitis B Surface Ag Negative Negative [facility] 01/26/2023 3:30 PM EST 01/26/2023 3:30 PM EST [facility] External Provider LAB BLO OD ORDERABLES Final Result [facility] [address] [place] [phone] from Last 3 Months or Most Recently Relevant to Health Maintenance Insurance [facility] MEDICAID [facility] Care Teams Concrete Technician Relationship Specialty Start Date End Date Maranda Oakes MD [address] [place] [id number] PCP - General Internal Medicine 07/05/24 Richard Enrique [address] [place] [address] Dental Piping Drafter 01/25/25
--- OUTSIDE RECORDS SUMMARY | 2025-03-07 17:51 | XMS_ITS | Encounter Summary ---
Author Organization [employer] Address 75 [facility] 7t [place] [address] Care Team Providers Care Environmental Services Specialist Name Role Phone Maranda Oakes MD Primary Care Provider [phone] Richard Enrique Unavailable [phone] Encounter Details Date Type Department Care Team ([facility] Contact Info) Description 10/19/2024 Orders Only [facility] [address] [place], [place] [phone] Provider, MD Srinath Social History Tobacco Use [...] documented as of this encounter Care Teams Environmental Services Specialist Relationship Specialty Start Date End Date Maranda Oakes MD [address] [place] [address] PCP - General Internal Medicine 07/05/24 Richard Enrique [address] [place] [address] Dental Box Spinner 01/25/25 documented as of this encounter
--- OUTSIDE RECORDS SUMMARY | 2025-03-07 17:51 | XMS_ITS | Encounter Summary ---
Author Organization [employer] Address 75 [facility] 7t [place] [address] Care Team Providers Care Casserole Preparer Name Role Phone Maranda Oakes MD Primary Care Provider [phone] Maranda Oakes MD Primary Care Provider [phone] Richard Enrique Unavailable [phone] Reason for Visit * Reason Onset Date Comments Hospital Follow-up 06/22/2024 Encounter Details Date Type Department Care Team ([facility] st Contact Info) Description 06/22/2024 Telephone [facility] [address] [place] [address] Maranda Oakes MD [address] [place], [place] [phone] Hospital Follow-up Social History Tobacco Use Types [...] from pt requesting a HDF appt. Hospital: [facility] Date of admission: 06/20 Discharge date: 06/23 Diagnosed: No further details provided documented in this encounter Plan of Treatment Not on file documented as of this encounter Visit Diagnoses Not on filedocumented in this encounter Additional Health Concerns Assessment Noted Time PHQ-9 Depression Total Score: 2 11/25/20 22 3:00 PM EST documented as of this encounter Care Teams Casserole Preparer Relationship Specialty Start Date End Date Maranda Oakes MD [address] [place] [address] PCP - General Internal Medicine 06/08/24 07/04/24 Maranda Oakes MD [address] [place] [address] PCP - General Internal Medicine 07/05/24 Richard Enrique [address] [place] [address] Dental Utility Technician 01/25/25 documented as of this encounter
--- OUTSIDE RECORDS SUMMARY | 2025-03-07 17:51 | XMS_ITS | Encounter Summary ---
Author Organization [employer] Address 75 [facility] [address]t [place] [address] Care Team Providers Care Steel Rule Inspector Name Role Phone Kriss Woodward MD Primary Care Provider Maranda Oakes MD Primary Care Provider Maranda Oakes MD Primary Care Provider Richard Enrique Unavailable [phone] Reason for Visit * Reason Onset Date Comments Appointment 03/11/2023 Encounter Details Date Type Department Care Team ([facility] st Contact Info) Description 03/11/2023 Telephone [facility] [address] [place] [address] Richa Velasquez, FRANCESS [address] [place] [address] Appointment Social History Tobacco Use Types Packs/Day [...] appt. He has been on waitlist in [facility] since 12/2021. He would like to be scheduled DR documented in this encounter Plan of Treatment Not on file documented as of this encounter Visit Diagnoses Not on filedocumented in this encounter Additional Health Concerns Assessment Noted Time PHQ-9 Depression Total Score: 2 11/25/20 22 3:00 PM EST documented as of this encounter Care Teams Steel Rule Inspector Relationship Specialty Start Date End Date Kriss Woodward MD [address] [place] [address] PCP - General Family Medicine 02/06/23 06/07/24 Maranda Oakes MD [address] [place] [address] PCP - General Internal Medicine 06/08/24 07/04/24 Maranda Oakes MD [address] [place] [address] PCP - General Internal Medicine 07/05/24 Richard Enrique [address] [place] [address] Dental Forensic Document Examiner 01/25/25 documented as of this encounter
--- OUTSIDE RECORDS SUMMARY | 2025-03-07 17:51 | XMS_ITS | Encounter Summary ---
Author Organization [employer] Address 75 [facility] 7t [place] [address] Care Team Providers Care Knitting Supervisor Name Role Phone Kriss Woodward MD Primary Care Provider Maranda Oakes MD Primary Care Provider Maranda Oakes MD Primary Care Provider [phone] Richard Enrique Unavailable [phone] Reason for Visit * Reason Comments Med Change Request Encounter Details Date Type Department Care Team ([facility] st Contact Info) Description 11/25/2022 Refill [facility] [address] [place], [place] [phone] Kriss Woodward MD [address] [place], [place] Chronic diarrhea Social History Tobacco Use Types [...] documented as of this encounter Care Teams Knitting Supervisor Relationship Specialty Start Date End Date Kriss Woodward MD [address] [place] [address] PCP - General Family Medicine 02/06/23 06/07/24 Maranda Oakes MD [address] [place] [address] PCP - General Internal Medicine 06/08/24 07/04/24 Maranda Oakes MD [address] [place] [address] PCP - General Internal Medicine 07/05/24 Richard Enrique [address] [place] [address] Dental Supervisor Lace Tearing 01/25/25 documented as of this encounter
--- OUTSIDE RECORDS SUMMARY | 2025-03-07 17:51 | XMS_ITS | Encounter Summary ---
Author Organization [employer] Address [address] [facility] [address] [place] [address] Care Team Providers Care Dental Financial Coordinator Name Role Phone Kriss Woodward MD Primary Care Provider Maranda Oakes MD Primary Care Provider Maranda Oakes MD Primary Care Provider Richard Enrique Unavailable [phone] Reason for Visit * Reason Onset Date Comments Nurse Triage 02/01/2024 Encounter Details Date Type Department Care Team ([facility] st Contact Info) Description 02/01/2024 Telephone [facility] MED & PEDS [address] [place] [address] Kriss Woodward MD [address] [place] [address] Nurse Triage Social History Tobacco Use Types [...] this outcome Please contact pt spouse at [phone] documented in this encounter Plan of Treatment Not on file documented as of this encounter Visit Diagnoses Not on filedocumented in this encounter Additional Health Concerns Assessment Noted Time PHQ-9 Depression Total Score: 2 11/25/20 22 3:00 PM EST documented as of this encounter Care Teams Dental Financial Coordinator Relationship Specialty Start Date End Date Kriss Woodward MD [address] [place] [address] PCP - General Family Medicine 02/06/23 06/07/24 Maranda Oakes MD [address] [place] [address] PCP - General Internal Medicine 06/08/24 07/04/24 Maranda Oakes MD [address] [place] [address] PCP - General Internal Medicine 07/05/24 Richard Enrique [address] [place] [address] Dental Artillery Meteorological Man 01/25/25 documented as of this encounter
--- OUTSIDE RECORDS SUMMARY | 2025-03-07 17:51 | XMS_ITS | Encounter Summary ---
Author Organization [employer] Address [address] [facility] [address] [place] [address] Care Team Providers Care Automation Engineering Manager Name Role Phone Maranda Oakes MD Primary Care Provider Richard Enrique Unavailable [phone] Reason for Visit * Reason Onset Date Comments Referral 12/02/2024 Encounter Details Date Type Department Care Team ([facility] Contact Info) Description 12/02/2024 Telephone [facility] [address] [place] [address] Maranda Oakes MD [address] [place], [place] [phone] Referral Social History Tobacco Use Types Packs/Day [...] [place] - 12/02/2024 1:58 PM EST TC from [facility]ana requesting new referral : DATE: 12/09/24 TIME: 09:00 AM Address: [address] [place] [address] Visits: 12 Facility Name: [facility] Type of Specialist: pulmonary DX: D86.0 Provider : Dr Rosales Burnham Provider NPI : [id number] Phone # : [phone] Fax #: [phone] documented in this encounter Plan of Treatment Not on file documented as of this encounter Visit Diagnoses Not on filedocumented in this encounter Additional Health Concerns Assessment Noted Time PHQ-9 Depression Total Score: 2 11/25/20 22 3:00 PM EST documented as of this encounter Care Teams Automation Engineering Manager Relationship Specialty Start Date End Date Maranda Oakes MD [address] [place] [address] PCP - General Internal Medicine 07/05/24 Richard Enrique [address] [place] [address] Dental Child Attendant 01/25/25 documented as of this encounter
--- OUTSIDE RECORDS SUMMARY | 2025-03-07 17:51 | XMS_ITS | Clinical Summary ---
Author Organization 175 [facility] Address [address] [place] [address] Phone Care Team Providers Care Sales Project Administrator Name Role Phone Maranda Oakes MD Primary Care Provider [phone] Allergies Active Allergy Reactions Criticality Noted Date Comments Sacubitril-Valsartan Dizziness High 12/09/2024 Dizzines,left arm numbness. Medications omeprazole OTC (PriLOSEC OTC) 20 mg EC tablet 4 07/14/20 25 Active albuterol 1.25 mg/3 mL nebulizer solution Take 1 Ampule by nebulization every 6 hours as needed. Active olmesartan (BENICAR) 20 mg tablet Take 1 tablet (20 mg total) by mouth 1 (one) time each day. Active fluticasone furoate (Arnuity Ellipta) 100 mcg/actuation blister with device inhaler Inhale 1 puff by mouth 1 (one) time each day. 1 each 5 02/01/20 26 Active Active Problems Problem Noted Date Diagnosed [...] Encounters Date Type Department Care Team Description 02/08/2025 11:34 AM EDT - 02/08/2025 11:59 PM EDT Hospital Encounter [facility] Xray [address] [place] [phone] Pulmonary sarcoidosis (CMS/HCC) Discharge Disposition: Home or Self Care 01/31/2025 9:00 AM EST [facility] [address] [phone] Rosales Burnham MD Dilated cardiomyopathy (CMS/HCC) (Primary Dx); Pulmonary sarcoidosis (CMS/HCC) 01/25/2025 10:10 AM EST Office Visit [address] [place] [phone] Jami Oliver NP Dilated cardiomyopathy (CMS/HCC) (Primary Dx); Sinus tachycardia 01/05/[address] [place] [address] Av Gloria MD Labs Only 12/30/2024 2:00 PM EST Ancillary Procedure Pulmonolgy - [place] 175 [facility] [address] [place] [phone] Zita Claire Pulmonary sarcoidosis (CMS/HCC) 12/09/2024 9:49 AM EST - 12/09/2024 11:59 PM EST Hospital Encounter [facility] Xray [address] [place] [phone] Pulmonary sarcoidosis (CMS/HCC) Discharge Disposition: Home or Self Care 12/09/2024 9:00 AM EST Office Visit [facility] 175 [facility] 200 [place] [phone] Rosales Burnham MD Pulmonary sarcoidosis (CMS/HCC) (Primary Dx); SEEMA (obstructive sleep apnea) from Last 3 Months Medical History Medical [...] Recorded Sex Assigned at Not on file Legal Sex Male 3:13 PM EST Gender Identity Not on file Sexual Orientation Not on file Obstetrics History Last Filed Vital Signs Vital Sign Reading Time Taken Comments Blood Pressure 134/90 01/31/2025 9:08 AM EST Pulse 95 01/31/2025 9:08 AM EST Temperature 36.3 ??C (97.3 ??F) 01/31/2025 9:08 AM ES T Respiratory Rate 20 01/31/2025 9:08 AM EST Oxygen Saturation 95% 01/31/2025 9:08 AM EST Inhaled Oxygen Concentration - - Weight 152 kg (334 lb 12.8 oz) 01/31/2025 9:08 A M EST Height 188 cm (6' 2 ) 01/31/2025 9:08 AM EST Body Mass Index 42.99 01/31/2025 9:08 AM EST Plan of Treatment Upcoming Encounters Date Type Department Care Team (Late st Contact Info) Description 05/02/2025 8:45 AM EDT Office Visit [facility] 175 [facility] 200 [place] [phone] Rosales Burnham MD 175 [facility] 200 [place] [address] 08/04/2025 10:50 AM EDT Office Visit [facility] [address] [place] [phone] Av Gloria MD [address] [place] [address] [address] [place] [address] Health Maintenance Due Date Last Done Comments Pneumococcal Vaccine: Pediatrics (0 to 5 Years) and At-Risk Patients (6 to 64 Years) (1 of 2 - PCV) 2017 Hepatitis A Vaccines (2 of 2 - 2-dose series) 05/11/2018 11/10/2017 HIV Screening 10/29/2022 Hepatitis C Screening 10/29/2022 Social Influencers of Health Screening 10/29/2022 Depression Screening 11/25/2023 11/25/2022 COVID-19 Vaccine ( season) 2024 Influenza Vaccine (Season Ended) 2025 11/10/2017, 08/08/2016, 08/28/2015, Additional history exists Hypertension/CHF/CAD Annual BMP Blood Test 01/06/2026 02/16/2025, 01/06/2025, 09/13/2024, Additional history exists DTaP,Tdap,and Td Vaccines (8 - Td or [...] 10/30, 07/15/2013 Meningococcal ACWY Vaccine Completed 08/08/2016, Meningococcal B Vaccine Aged Out No l onger eligible based on patient's age to complete this topic RSV Immunization Patients Under 20 months Aged Out No longer eligible based on patient's age to complete this topic Procedures Procedure Name Priority Date/Time Associated Diagnosis Comments XR CHEST 2 VIEWS Routine 02/08/2025 11:4 2 AM EDT Pulmonary sarcoidosis (CMS/HCC) PULMONARY FUNCTION TESTING Routine 12/30/2024 2:58 PM EST Pulmonary sarcoidosis (CMS/HCC) XR CHEST 2 VIEWS Routine 12/09/2024 10:0 7 AM EST Pulmonary sarcoidosis (CMS/HCC) ANNUAL BMP BLOOD TEST Routine 09/13/2024 from Last 3 Months or Most Recently Relevant to Health Maintenance Results * XR Chest 2 Views (02/08/2025 11:42 AM EDT) Only the most recent of2 resultswithin the time period is included. Anatomical Region Laterality Modality Body Radiographic Sarahi ging 02/08/2025 11:4 8 AM EDT Impressions 02/08/2025 11:50 AM EDT Normal examination. There is no radiographic evidence of sarcoidosis. No change since the prior study performed 12/09/2024. Code 09907 -------- FINAL REPORT -------- Dictated By: Ivan Costa Dictated Date: 02/08/2025 11:48 ET Assigned Physician: Ivan Costa Reviewed and Electronically Signed By: Ivan Costa Signed Date: 02/08/2025 11:50 ET Workstation ID: [id number] Transcribed By: Self Edit Transcribed Date: 02/08/2025 11:48 ET Narrative 02/08/2025 11:50 AM EDT HISTORY: The patient is a 24-year-old male with history of sarcoidosis. FINDINGS: PA and lateral radiographs of the chest demonstrate normal appearance of the bony structures. The cardiac and mediastinal contours are within normal limits. The lungs and costophrenic angles are clear. Procedure Note Ivan Costa MD - 02/08/2025 HISTORY: The patient is a 24-year-old male with history of sarcoidosis. FINDINGS: PA and lateral radiographs of the chest demonstrate normalappearance of the bony structures. The cardiac and mediastinal contoursare within normal limits. The lungs and costophrenic angles are clear. IMPRESSION: Normal examination. There is no radiographic evidence of sarcoidosis. Nochange since the prior study performed 12/09/2024. Code 31671 -------- FINAL REPORT -------- Dictated By: Ivan Costa Dictated Date: 02/08/2025 11:48 ET Assigned Physician: Ivan Costa Reviewed and Electronically Signed By: Ivan Costa Signed Date: 02/08/2025 11:50 ET Workstation ID: [id number] Transcribed By: Self Edit Transcribed Date: 02/08/2025 11:48 ET Rosales Burnham MD IMG XR PROCEDURES Final Result * Pulmonary function testing: Carbon Monoxide Diffusing [...] lung disease. Rosales Burnham MD PFT ORDERABLES Final Result from Last 3 Months Insurance MEDICAID - [place] Care Teams Sales Project Administrator Relationship Specialty Start Date End Date Maranda Oakes MD [address] [place] [address] PCP - General 07/11/24
== END 2025-03-07 15:36 | disposition home or self-care (01) ==
LOC: HO.HGI 14:46
PROVIDERS: PCP Internal Medicine; Visit Provider Nurse Practitioner Family
DX: K50.90 Crohn's disease, unspecified, without complications (principal); D86.0 Sarcoidosis of lung
CPT/HCPCS: 99215

== ENCOUNTER → 2025-03-07 14:45 | Outpatient (BNVA) | payer MEDICAID, SELFPAY | PROVIDERS: PCP Internal Medicine; Visit Provider Nurse Practitioner Family | DX: K50.90 Crohn's disease, unspecified, without complications (principal); D86.0 Sarcoidosis of lung | CPT/HCPCS: 99212 ==

== ENCOUNTER 2025-03-31 14:54 | Outpatient (REF) | payer MEDICAID, SELFPAY ==
--- OUTSIDE RECORDS SUMMARY | 2025-03-31 14:59 | XMS_ITS | Encounter Summary ---
Author Organization [employer] Address [address] 7[address] [place] [address] Care Team Providers Care Lambskin Trimmer Name Role Phone Maranda Oakes MD Primary Care Provider Richard Enrique Unavailable [phone] Reason for Visit * Reason Onset Date Comments Referral 03/09/2025 Encounter Details Date Type Department Care Team ([facility] Contact Info) Description 03/09/2025 Telephone [facility] MEDICINE [address] [place] [address] Maranda Oakes MD [address] [place], [place] [phone] Referral Social History Tobacco Use Types Packs/Day [...] Miscellaneous Notes * Telephone Encounter - Thai Mathieu - 03/09/2025 4:23 PM EDT TC from pt requesting new referral : DATE: 03/07/25 ( has to be back dated ) TIME: n/a Address: [address] [place] [address] [place] [address] Visits: 6 Facility Name: [facility] Gastro Type of Specialist: Gastro DX: crones Provider : Dr Guillermina Mccall Provider NPI : [id number] Facility Phone # : [phone] Fax #: [phone] documented in this encounter Plan of Treatment Not on file documented as of this encounter Visit Diagnoses Not on filedocumented in this encounter Additional Health Concerns Assessment Noted Time PHQ-9 Depression Total Score: 2 11/25/20 22 3:00 PM EST documented as of this encounter Care Teams Lambskin Trimmer Relationship Specialty Start Date End Date Maranda Oakes MD [address] [place] [address] PCP - General Internal Medicine 07/05/24 Richard Enrique [address] [place] [address] Dental Rock Splitter 01/25/25 documented as of this encounter
--- OUTSIDE RECORDS SUMMARY | 2025-03-31 14:59 | XMS_ITS | Encounter Summary ---
Author Organization [employer] Address 75 [facility] 7t [place] [address] Care Team Providers Care Negative Cleaner Name Role Phone Maranda Oakes MD Primary Care Provider [phone] Richard Enrique Unavailable [phone] Encounter Details Date Type Department Care Team ([facility] Contact Info) Description 12/09/2024 Orders Only [facility] [address] [place], [place] [phone] Provider, MD Srinath Social History Tobacco Use [...] documented as of this encounter Care Teams Negative Cleaner Relationship Specialty Start Date End Date Maranda Oakes MD [address] [place] [address] PCP - General Internal Medicine 07/05/24 Richard Enrique [address] [place] [address] Dental Chipper Machine Operator 01/25/25 documented as of this encounter
--- OUTSIDE RECORDS SUMMARY | 2025-03-31 14:59 | XMS_ITS | Clinical Summary ---
Author Organization 175 [facility] Address [address] [place] [address] Phone Care Team Providers Care Wind Turbine Engineer Name Role Phone Maranda Oakes MD Primary Care Provider [phone] Allergies Active Allergy Reactions Criticality Noted Date [...] monitor (<= 48 hours); Future Dilated cardiomyopathy (CMS/HCC V24, CMS/HCC V28 ) 10/19/2024 Assessment & Plan (10/19/2024 1:54 PM [...] - 02/08/2025 11:59 PM EDT Hospital Encounter [facility] Xray [address] [facility] [place] [phone] Pulmonary sarcoidosis (CMS/HCC V24) Discharge Disposition: Home or Self Care 01/31/2025 9:00 AM EST Office Visit Pul[facility]olgy - [place] [address] [place] [phone] Rosales Burnham MD Dilated cardiomyopathy (CMS/HCC V24, CMS/HCC V28) (Primary Dx); Pulmonary sarcoidosis (CMS/HCC V24) 01/25/2025 10:10 AM EST Office Visit [facility] Cardiology [facility] [address] [place] [address] Jami Oliver NP Dilated cardiomyopathy (CMS/HCC V24, CMS/HCC V28) (Primary Dx); Sinus tachycardia 01/05/2025 Telephone [facility] Cardiology [facility] [address] [place] [address] Av Gloria MD Labs Only from Last 3 Months Medical History Medical [...] Description 05/02/2025 8:45 AM EDT Office Visit Pulmonolgy - [place] [address] [place] [address] Rosales Burnham MD [address] [facility] [address] [place] [address] 08/04/2025 10:50 AM EDT Office Visit [facility] Cardiology [address] [place] [address] Av Gloria MD [address] [place] [address] [address] [place] [address] Health Maintenance Due Date Last Done Comments [...] history exists Hypertension/CHF/CAD Annual BMP Blood Test 02/16/2026 02/16/2025, 01/06/2025, 09/13/2024, Additional history exists DTaP,Tdap,and [...] Procedure Name Priority Date/Time Associated Diagnosis Comments POLYSOMNOGRAPHY Routine 03/21/2025 4:23 PM EDT XR CHEST 2 VIEWS Routine 02/08/2025 11:4 2 AM EDT Pulmonary sarcoidosis (CMS/HCC V24) ANNUAL BMP BLOOD TEST Routine 09/13/2024 from Last 3 Months or Most Recently Relevant to Health Maintenance Results * Polysomnography (03/21/2025 4:23 PM EDT) us Historical Provider [facility] ORDERABLES F inal Result * XR Chest 2 Views (02/08/2025 11:42 AM EDT) Anatomical Region Laterality Modality Body Radiographic Sarahi ging 02/08/2025 11:4 8 AM EDT Impressions 02/08/2025 11:50 AM EDT Normal examination. There is no radiographic evidence of sarcoidosis. No change since the prior study performed 12/09/2024. Code 83295 -------- FINAL REPORT -------- Dictated By: Ivan Costa Dictated Date: 02/08/2025 11:48 ET Assigned Physician: Ivan Costa Reviewed and Electronically Signed By: Ivan Costa Signed Date: 02/08/2025 11:50 ET Workstation ID: [id number] Transcribed By: Self Edit Transcribed Date: 02/08/2025 [...] since the prior study performed 12/09/2024. Code 42525 -------- FINAL REPORT -------- Dictated By: Ivan Costa Dictated Date: 02/08/2025 11:48 ET Assigned Physician: Ivan Costa Reviewed and Electronically Signed By: Ivan Costa Signed Date: 02/08/2025 11:50 ET Workstation ID: [id number] Transcribed By: Self Edit Transcribed Date: 02/08/2025 11:48 ET us Rosales Burnham MD IMG XR PROCEDURES Final Result from Last 3 Months Insurance MEDICAID - [place] Care Teams Wind Turbine Engineer Relationship Specialty Start Date End Date Mraanda Oakes MD [address] [place] [address] PCP - General 07/11/24
--- OUTSIDE RECORDS SUMMARY | 2025-03-31 14:59 | XMS_ITS | Encounter Summary ---
Author Organization [employer] Address 75 [facility] 7t [place] [address] Care Team Providers Care Kraft Mill Operator Name Role Phone Kriss Woodward MD Primary Care Provider [phone] Maranda Oakes MD Primary Care Provider Maranda Oakes MD Primary Care Provider Richard Enrique Unavailable [phone] Reason for Visit * Reason Comments Med Change Request Encounter Details Date Type Department Care Team ([facility] st Contact Info) Description 11/25/2022 Refill [facility] CHC MED & PEDS [address] [place], [place] [phone] Kriss Woodward MD [address] [place] [address] Chronic diarrhea Social History Tobacco Use Types [...] documented as of this encounter Care Teams Kraft Mill Operator Relationship Specialty Start Date End Date Kriss Woodward MD [address] [place] [address] PCP - General Family Medicine 02/06/23 06/07/24 Maranda Oakes MD [address] [place] [address] PCP - General Internal Medicine 06/08/24 07/04/24 Maranda Oakes MD [address] [place] [address] PCP - General Internal Medicine 07/05/24 Richard Enrique [address] [place] [address] Dental Head Of Human Resources 01/25/25 documented as of this encounter
--- OUTSIDE RECORDS SUMMARY | 2025-03-31 14:59 | XMS_ITS | Encounter Summary ---
Author Organization [employer] Address [address] [facility] 7t [place] [address] Care Team Providers Care Corporate Counsel Name Role Phone Kriss Woodward MD Primary Care Provider Maranda Oakes MD Primary Care Provider Maranda Oakes MD Primary Care Provider Richard Enrique Unavailable [phone] Reason for Visit * Reason Onset Date Comments Nurse Triage 02/01/2024 Encounter Details Date Type Department Care Team ([facility] st Contact Info) Description 02/01/2024 Telephone [facility] MED & PEDS [address] [place] [address] Kriss Woodward MD [address] [place] [address] Nurse Triage Social History Tobacco Use Types [...] this outcome Please contact pt spouse at [phone] documented in this encounter Plan of Treatment Not on file documented as of this encounter Visit Diagnoses Not on filedocumented in this encounter Additional Health Concerns Assessment Noted Time PHQ-9 Depression Total Score: 2 11/25/20 22 3:00 PM EST documented as of this encounter Care Teams Corporate Counsel Relationship Specialty Start Date End Date Kriss Woodward MD [address] [place] [address] PCP - General Family Medicine 02/06/23 06/07/24 Maranda Oakes MD [address] [place] [address] PCP - General Internal Medicine 06/08/24 07/04/24 Maranda Oakes MD [address] [place] [address] PCP - General Internal Medicine 07/05/24 Richard Enrique [address] [place] [address] Dental Third Shift Lieutenant 01/25/25 documented as of this encounter
--- OUTSIDE RECORDS SUMMARY | 2025-03-31 14:59 | XMS_ITS | Encounter Summary ---
Author Organization [employer] Address 75 [facility] 7t [place] [address] Care Team Providers Care Pewter Caster Name Role Phone Maranda Oakes MD Primary Care Provider [phone] Maranda Oakes MD Primary Care Provider Richard Enrique Unavailable [phone] Reason for Visit * Reason Onset Date Comments Hospital Follow-up 06/22/2024 Encounter Details Date Type Department Care Team ([facility] st Contact Info) Description 06/22/2024 Telephone [facility] MEDICINE [address] [place] [address] Maranda Oakes MD [address] [place], [place] [phone] Hospital Follow-up Social History Tobacco Use Types [...] from pt requesting a HDF appt. Hospital: [facility] Date of admission: 06/20 Discharge date: 06/23 Diagnosed: No further details provided documented in this encounter Plan of Treatment Not on file documented as of this encounter Visit Diagnoses Not on filedocumented in this encounter Additional Health Concerns Assessment Noted Time PHQ-9 Depression Total Score: 2 11/25/20 22 3:00 PM EST documented as of this encounter Care Teams Pewter Caster Relationship Specialty Start Date End Date Maranda Oakes MD [address] [place] [address] PCP - General Internal Medicine 06/08/24 07/04/24 Maranda Oakes MD [address] [place] [address] PCP - General Internal Medicine 07/05/24 Richard Enrique [address] [place] [address] Dental Senior Engineering Tech 01/25/25 documented as of this encounter
--- OUTSIDE RECORDS SUMMARY | 2025-03-31 14:59 | XMS_ITS | Encounter Summary ---
Author Organization [employer] Address 75 [facility] 7 [place] [address] Care Team Providers Care Zmt Operator Name Role Phone Maranda Oakes MD Primary Care Provider [phone] Richard Enrique Unavailable [phone] Reason for Referral * Consultation (Routine) - Closed Specialty Diagnoses / Procedures Referred By Alexi baumann Referred To Contact Gastroenterology Diagnoses Crohn's disease of small intestine with rectal bleeding (CMS/HCC) Maranda Oakes MD [address] [place] [address] Phone: tel: fax: Referral ID Status Reason Start Date Expiration Date V isits Requested Visits Authorized [id number] Closed Specialty Services Required 03/10/2025 03/10/2026 1 1 Encounter Details Date Type Department Care Team ([facility] st Contact Info) Description 03/10/2025 Orders Only [facility] CHC MED & PEDS [address] [place] [address] Maranda Oakes MD [address] [place] [address] Crohn's disease of small intestine with rectal bleeding (CMS/HCC) (Primary Dx) Social History Tobacco Use Types [...] as of this encounter Plan of Treatment Scheduled Referrals Name Type Priority Associated Diagnoses Order Schedule Referral to Gastroenterology Outpatient Referral Routine Crohn's disease of small intestine with rectal bleeding (CMS/HCC) Expected: 03/10/2025 (Approximate), Expires: 03/10/2026 documented as of this encounter Visit Diagnoses Diagnosis Crohn's disease of small intestine with rectal bleeding (CMS/HCC)- Primary documented in this encounter Additional Health Concerns Assessment Noted Time PHQ-9 Depression Total Score: 2 11/25/20 22 3:00 PM EST documented as of this encounter Care Teams Zmt Operator Relationship Specialty Start Date End Date Maranda Oakes MD [address] [place] [address] PCP - General Internal Medicine 07/05/24 Richard Enrique [address] [place] [address] Dental Quantitative Manager 01/25/25 documented as of this encounter
--- OUTSIDE RECORDS SUMMARY | 2025-03-31 14:59 | XMS_ITS | Encounter Summary ---
Author Organization [employer] Address [address] [facility] [address] [place] [address] Care Team Providers Care Ct Scan Technologist Name Role Phone Maranda Oakes MD Primary Care Provider Richard Enrique Unavailable [phone] Encounter Details Date Type Department Care Team ([facility] st Contact Info) Description 03/09/2025 Telephone [facility] MEDICINE [address] [place] [address] Maranda Oakes MD [address] [place] [address] Social History Tobacco Use Types Packs/Day Years [...] documented as of this encounter Care Teams Ct Scan Technologist Relationship Specialty Start Date End Date Maranda Oakes MD [address] [place] [address] PCP - General Internal Medicine 07/05/24 Richard Enrique [address] [place] [address] Dental Publications Manager 01/25/25 documented as of this encounter
--- OUTSIDE RECORDS SUMMARY | 2025-03-31 14:59 | XMS_ITS | Encounter Summary ---
Author Organization [employer] Address [address] [facility] [facility] [address] [place] [address] Care Team Providers Care Customer Success Manager Name Role Phone Maranda Oakes MD Primary Care Provider Richard Enrique Unavailable [phone] Reason for Visit * Reason Onset Date Comments Referral 12/02/2024 Encounter Details Date Type Department Care Team ([facility] Contact Info) Description 12/02/2024 Telephone [facility] MEDICINE [address] [place] [address] Maranda Oakes MD [address] [place], [place] [phone] Referral Social History Tobacco Use Types Packs/Day [...] : DATE: 12/09/24 TIME: 09:00 AM Address: [address] [place] [address] Visits: 12 Facility Name: [facility] Type of Specialist: pulmonary DX: D86.0 Provider : Dr Rosales Burnham Provider NPI : [id number] Phone # : [phone] Fax #: [phone] documented in this encounter Plan of Treatment Not on file documented as of this encounter Visit Diagnoses Not on filedocumented in this encounter Additional Health Concerns Assessment Noted Time PHQ-9 Depression Total Score: 2 11/25/20 22 3:00 PM EST documented as of this encounter Care Teams Customer Success Manager Relationship Specialty Start Date End Date Maranda Oakes MD [address] [place] [address] PCP - General Internal Medicine 07/05/24 Richard Enrique [address] [place] [address] Dental Cane Loader 01/25/25 documented as of this encounter
--- OUTSIDE RECORDS SUMMARY | 2025-03-31 14:59 | XMS_ITS | Clinical Summary ---
Author Organization [employer] Address [address] [facility] [address] [place] [address] Care Team Providers Care Micro Paleontologist Name Role Phone Maranda Oakes MD Primary Care Provider Richard Enrique Unavailable [phone] Allergies Active Allergy Reactions Criticality Noted Date Comments Bee Venom Anaphylaxis High 01/26/2025 Sacubitril-Valsartan Dizziness High 12/09/2024 Dizzines,left arm numbness. Medications EPINEPHrine (Epipen) 0.3 MG/0.3ML injection syringeIndicatio [...] THE MORNING 90 tablet 1 4 Active Mometasone Furoate (Asmanex, 120 Metered Doses,) 220 MCG/ACT aerosol powderIndication s:Mild persistent asthma, unspecified whether complicated Inhale 220 mcg Once per day. 1 each 3 4 Active ipratropium-albu terol (Duo-Neb) 0.5-2.5 mg/3 mL nebulizer solution Take 3 mL by nebulization Every 4-6 hours as needed for wheezing or shortness of breath. 4 Active olmesartan (BENIcar) 20 MG tablet Take 1 tablet (20 mg) by mouth in the morning. 90 tablet 1 5 Active Active Problems Problem Noted Date Diagnosed [...] available for review at this moment from [facility], reports had CT scan of the abdomen, [...] Encounters Date Type Department Care Team Description 03/10/2025 Orders Only [facility] [address] [place] [address] Maranda Oakes MD Crohn's disease of small intestine with rectal bleeding (CMS/HCC) (Primary Dx) 03/09/2025 Telephone [facility] [address] [place] [address] Maranda Oakes MD 03/09/2025 Telephone [facility] [address] [place] [address] Maranda Oakes MD Referral 03/09/[address] [facility] [address] [place] [address] Maranda Oakes MD 02/22/2025 Population Health Risk Score [facility] ([facility]) Department [address] [phone] Provider, Population Health Generic 02/15/[address] [facility] [address] [place] [address] Maranda Oakes MD 01/26/2025 10:00 AM EST Office Visit [facility] [address] [place] [address] EnriqueFredmaepreet 01/11/2025 10:00 AM EST Office Visit [facility] [address] [place] [address] Alexander Enriquepreet 01/06/2025 Orders Only GENERIC EXTERNAL DATA DEPARTMENT Provider, Generic External Data from Last 3 Months Immunizations Name Administration [...] 01/06/2025 11:56 AM EST Diarrhea, unspecified type PROPHYLAXIS - ADULT Routine 12/26/2024 1 1:00 AM EST INTRAORAL - COMPLETE SERIES OF RADIOGRAPHIC IMAGES Routine 12/26/2024 11:00 AM EST COMPREHENSIVE ORAL EVALUATION - NEW OR ESTABLISHED PATIENT Routine 12/26/2024 11:00 AM EST LIPID PANEL, STANDARD Routine 03/19/2024 11:00 AM EDT Primary hypertension Morbid obesity (CMS/HCC) HEPATITIS PANEL, GENERAL Routine 01/26/2023 3:30 PM EST HIV ANTIBODY/ANTIGEN ([facility] DPH) Routine 01/26/2023 3:30 PM EST from Last 3 Months or Most Recently Relevant to Health Maintenance Results * (ABNORMAL) Basic Metabolic Panel, Fasting (01/06/2025 11:56 AM EST) Sodium 138 135 - 145 mmol/L [facility] Potassium 4.1 3.3 - 5.1 mmol/L [facility] Chloride 109(H) 96 - 108 mmol/L [facility] Carbon Dioxide 25 22 - 29 mmol/L [facility] Anion Gap 8(L) 12 - 20 [facility] Urea Nitrogen (BUN) 10 9 - 16 mg/dL [facility] Creatinine, Serum 0.83 0.5 - 1.4 mg/dL [facility] Estimated Glomerular Filt Rate >60 [facility] Comment:Chronic Kidney Disea se: Estimated GFR < 60 mL/min/1.83p3Ronnbj Kidney Disease: Estimated GFR < 15 mL/min/1.73m2 Glucose Fasting 88 60 - 99 mg/dL [facility] Calcium 9.5 8.4 - 10.2 mg/dL [facility] Blood Venous blood specimen / Unknown 01/06/2025 11:56 AM EST 01/06/2025 11:56 AM EST us Maranda Oakes MD LAB BLOOD ORDERABLES Final Result [facility] [address] [place] [phone] * (ABNORMAL) CBC auto differential (01/06/2025 11:56 AM EST) White Blood Count 5.5 4.8 - 10.8 X10*3/uL [facility] Red Blood Count 5.31 4.60 - 5.80 X10*6/uL [facility] Hemoglobin 15.1 14.0 - 18.0 g/dl [facility] Hematocrit 45.5 42.0 - 52.0 % [facility] Mean Corpuscular Volume 85.7 80.0 - 98.0 fL [facility] Mean Corpuscular Hemoglobin 28.4 27.0 - 33.0 pg [facility] Mean Corpuscular HGB Conc 33.2 31.0 - 36.0 g/dl [facility] Red Cell Distribution Width 12.9 11.0 - 16.0 % [facility] Platelet Count 314 160 - 400 X10*3/uL [facility] Mean Platelet Volume 9.3(L) 9.4 - 12.4 fL [facility] Neutrophils Percent Auto 59.7 45 - 73 % [facility] Imm Gran Pct Auto 0.5(H) 0.0 - 0.4 % [facility] Lymphocytes Percent Auto 26.3 20 - 40 % [facility] Monocytes Percent Auto 9.6 2 - 11 % [facility] Eosinophils Percent Auto 3.4 0 - 4 % [facility] Basophils Percent Auto 0.5 0 - 2 % [facility] NRBC Pct Auto 0.0 0.0 - 0.2 /100WBC [facility] Neutrophils Absolute Auto 3.3 2.0 - 8.3 x10*3/uL [facility] Imm Gran Abs Auto 0.03 0.00 - 0.03 X10*3/uL [facility] Lymphocytes Absolute Auto 1.5 1.2 - 4.9 X10*3/uL [facility] Monocytes Absolute Auto 0.5 0.1 - 1.2 X10*3/uL [facility] Eosinophils Absolute Auto 0.2 0.0 - 0.4 X10*3/uL [facility] Basophils Absolute Auto 0.0 0.0 - 0.2 X10*3/uL [facility] NRBC Abs Auto 0.000 0.0 - 0.012 X10*3/uL [facility] Blood Venous blood specimen / Unknown 01/06/2025 11:56 AM EST 01/06/2025 11:56 AM EST us Maranda Oakes MD LAB BLOOD ORDERABLES Final Result Performing Organization Address [facility]/ZIP Co de Phone Number [facility] [address] [place] [address] [phone] * Basic Metabolic Panel (01/06/2025 11:56 AM EST) Sodium 142 135 - 145 mmol/L [facility] Potassium 4.2 3.3 - 5.1 mmol/L [facility] Chloride 105 96 - 108 mmol/L [facility] Carbon Dioxide 24 22 - 29 mmol/L [facility] Anion Gap 17 12 - 20 [facility] Urea Nitrogen (BUN) 10 9 - 16 mg/dL [facility] Creatinine, Serum 0.82 0.5 - 1.4 mg/dL [facility] Estimated Glomerular Filt Rate >60 [facility] Comment:Chronic Kidney Disea se: Estimated GFR < 60 mL/min/[id number] Kidney Disease: Estimated GFR < 15 mL/min/1.73m2 Glucose 88 60 - 115 mg/dL [facility] Calcium 9.4 8.4 - 10.2 mg/dL [facility] 01/06/2025 11:5 6 AM EST 01/06/2025 11:56 AM EST us Generic External Data Provider LAB BLOOD ORDERAB LES Final Result Performing Organization Address [facility]/ZIP Co de Phone Number [facility] [address] [place] [address] [phone] * (ABNORMAL) Lipid Panel, Standard (03/19/2024 11:00 AM EDT) Triglycerides 69 <150 mg/dL [facility] Comment:Desirable Triglyceri de: less than 150 mg/dLBorderline High Triglyceride 150-199 mg/dLHigh Triglyceride: 200-499 mg/dLVery High Triglyceride: greater than or equal to 5OO mg/dL Cholesterol 158 <200 mg/dL [facility] Comment:Desirable Cholestero l: less than 200 mg/dLBorderline High Cholesterol: 200-239 mg/dLHigh Cholesterol: greater than 239 mg/dL LDL Cholesterol Calculated 111(H) <100 mg/dL [facility] Comment:Desirable LDL: less than 100 mg/dLNear Optimal/Above Optimal LDL: 110- 129 mg/dLBorderline High LDL: 130-159 mg/dLHigh LDL: 160-189 mg/dLVery High LDL: greater than or equal to 190 mg/dL HDL Cholesterol 34(L) >40 mg/dL [facility] Comment:Desirable HDL: great er than 40 mg/dL Note: This HDL assay may give artificially low results in patients with liver disease. Blood Venous blood specimen / Unknown 03/19/2024 11:00 AM EDT 03/19/2024 11:00 AM EDT us Maranda Oakes MD LAB BLOOD ORDERABLES Final Result [facility] [address] [place] [phone] * HIV Ab/Ag ([facility]) (01/26/2023 3:30 PM EST) HIV AB/AG Nonreactive Nonreactive [facility] Comment:HIV-1 p24 Ag and/or HIV-1/HIV-2 Ab not detected.A test result that is nonreactive does not exclude thepossibility of exposure to or infection with HIV-1 and/orHIV-2. Nonreactive results in this assay for individualswith prior exposure to HIV-1 and/or HIV-2 may be due toantigen and antibody levels that are below the limit ofdetection of this assay.The Khanna Rn Renal HIV Ag/Ab Combo assay result andsupplemental assay results should be interpreted inconjunction with the patient's clinical presentation,history and other laboratory results. If the results areinconsistent with clinical evidence, additional testing issuggested to confirm the result. 01/26/2023 3:30 PM EST 01/26/2023 3:30 PM EST [facility] External Provider LAB BLO OD ORDERABLES Final Result Performing Organization Address [facility]/ZIP Co de Phone Number [facility] [address] [place] [address] [phone] * Hepatitis Panel, General (01/26/2023 3:30 PM EST) Hepatitis A IgM Nonreactive Nonreactive [facility] Comment:IgM antibodies to ESPARZA V not detected; does not exclude earlyacute or recovered HAV infection. ~Hepatitis B Surface Antibody NONREACTIVE Nonreactive [facility] Comment:Nonreactive: < 8.00 mIU/mL Hepatitis B Core Antibody Nonreactive Nonreactive [facility] Hepatitis C Antibody Nonreactive Nonreactive [facility] Comment:Antibodies to HCV no t detected; does not exclude early acuteHCV infection. Hepatitis B Surface Ag Negative Negative [facility] 01/26/2023 3:30 PM EST 01/26/2023 3:30 PM EST [facility] External Provider LAB BLO OD ORDERABLES Final Result Performing Organization Address [facility]/ZIP Co de Phone Number [facility] [address] [place] [address] [phone] from Last 3 Months or Most Recently Relevant to Health Maintenance Insurance [facility] MEDICAID STAND ADULT Care Teams Micro Paleontologist Relationship Specialty Start Date End Date Maranda Oakes MD [address] [place] [phone] PCP - General Internal Medicine 07/05/24 Richard Enrique [address] [place] [address] Dental Counter Server 01/25/25
--- OUTSIDE RECORDS SUMMARY | 2025-03-31 14:59 | XMS_ITS | Encounter Summary ---
Author Organization [employer] Address [address] [facility] [address] [place] [address] Care Team Providers Care Financial Controller Name Role Phone Maranda Oakes MD Primary Care Provider [phone] Richard Enrique Unavailable [phone] Encounter Details Date Type Department Care Team ([facility] Contact Info) Description 10/19/2024 Orders Only [facility] [address] [place], [place] [phone] Provider, MD Srinath Social History Tobacco Use [...] documented as of this encounter Care Teams Financial Controller Relationship Specialty Start Date End Date Maranda Oakes MD [address] [place] [address] PCP - General Internal Medicine 07/05/24 Richard Enrique [address] [place] [address] Dental Air[employer] Superintendent 01/25/25 documented as of this encounter
--- OUTSIDE RECORDS SUMMARY | 2025-03-31 14:59 | XMS_ITS | Encounter Summary ---
Author Organization [employer] Address [address] [facility] [address] [place] [address] Care Team Providers Care Agricultural Engineer Name Role Phone Maranda Oakes MD Primary Care Provider [phone] Richard Enrique Unavailable [phone] Encounter Details Date Type Department Care Team ([facility] Contact Info) Description 08/15/2024 Orders Only [facility] [address] [place] [address] Provider, MD Srinath Social History Tobacco Use [...] documented as of this encounter Care Teams Agricultural Engineer Relationship Specialty Start Date End Date Maranda Oakes MD [address] [place] [address] PCP - General Internal Medicine 07/05/24 Richard Enrique [address] [place] [address] Dental Supervisor Computer Operations 01/25/25 documented as of this encounter
--- OUTSIDE RECORDS SUMMARY | 2025-03-31 14:59 | XMS_ITS | Encounter Summary ---
Author Organization [employer] Address [address] [facility] [address] [place] [address] Care Team Providers Care Patent Examiner Name Role Phone Kriss Woodward MD Primary Care Provider [phone] Maranda Oakes MD Primary Care Provider Maranda Oakes MD Primary Care Provider Richard Enrique Unavailable [phone] Reason for Visit * Reason Onset Date Comments Appointment 03/11/2023 Encounter Details Date Type Department Care Team ([facility] st Contact Info) Description 03/11/2023 Telephone [facility] [address] [place] [address] Richa Velasquez, FRANCESS [address] [place] [address] Appointment Social History Tobacco Use Types Packs/Day [...] appt. He has been on waitlist in [facility] since 12/2021. He would like to be scheduled DR documented in this encounter Plan of Treatment Not on file documented as of this encounter Visit Diagnoses Not on filedocumented in this encounter Additional Health Concerns Assessment Noted Time PHQ-9 Depression Total Score: 2 11/25/20 22 3:00 PM EST documented as of this encounter Care Teams Patent Examiner Relationship Specialty Start Date End Date Kriss Woodward MD [address] [place] [address] PCP - General Family Medicine 02/06/23 06/07/24 Maranda Oakes MD [address] [place] [address] PCP - General Internal Medicine 06/08/24 07/04/24 Maranda Oakes MD [address] [place] [address] PCP - General Internal Medicine 07/05/24 Richard Enrique [address] [place] [address] Dental Instructor Of Nursing 01/25/25 documented as of this encounter
[2025-03-31 15:57] LABS: Blood Urea Nitrogen 11 mg/dL (9-16); Estimated Glomerular Filt Rate > 60
== END 2025-03-31 14:55 | disposition home or self-care (01) ==
LOC: HO.LAB 14:54
PROVIDERS: PCP Internal Medicine; Visit Provider Nurse Practitioner Family
DX: R10.11 Right upper quadrant pain (principal)
CPT/HCPCS: 36415; 82565; 84520

== ENCOUNTER 2025-04-04 10:35 | Outpatient (REF) | payer MEDICAID, SELFPAY ==
--- NOTE | ~2025-04-04 | CT_ITS ---
EXAMINATION: CT ABDOMEN PELVIS ENTEROGRAPHY WITHOUT IV CONTRAST HISTORY: R19.5 - Other fecal abnormalities COMPARISON: Comparison is made with the prior examination dated 09/14/2023. TECHNIQUE: CT scan of the abdomen and pelvis was performed following administration of 85 mL Omnipaque 350 using standard departmental protocol. Coronal and sagittal reformatted images were generated and reviewed. The patient was given low density oral contrast material for CT enterography. This CT exam was performed with one or more of the following dose reduction techniques: automated exposure control, adjustment of the mA and/or kV according to patient size, use of iterative reconstruction technique. DLP: 849 mGy-cm FINDINGS: LOWER CHEST: There is dependent atelectasis at both lung bases. There is no pleural effusion. CARDIOVASCULATURE: The heart is normal in size. There is no pericardial effusion. LIVER: The liver is normal in size and contour. No liver mass is identified. The hepatic and portal veins are patent. GALLBLADDER / BILE DUCTS: The gallbladder is unremarkable. There is no intra or extrahepatic biliary ductal dilatation. SPLEEN: The spleen is normal in size. No focal splenic lesion is identified. PANCREAS: The pancreas is unremarkable in appearance. ADRENAL GLANDS: Within normal limits. KIDNEYS/RETROPERITONEUM: No renal calculi are identified. There is no hydronephrosis. No renal masses are identified. LYMPH NODES: No abdominal or pelvic lymphadenopathy. Scattered mesenteric lymph nodes which are not enlarged by CT criteria. VASCULATURE: The abdominal aorta is normal in caliber. MESENTERY/PERITONEUM: No free fluid. No masses. There is no free intraperitoneal gas. STOMACH: The stomach is well distended with oral contrast and is unremarkable in appearance. SMALL BOWEL: The small bowel is normal in caliber. There is no abnormal wall thickening or mucosal hyperenhancement. COLON: The colon is largely collapsed, limiting evaluation for wall thickening. APPENDIX: Normal. URINARY BLADDER/PELVIC ORGANS: The urinary bladder is collapsed, limiting evaluation. The prostate is normal in size. BONES / SOFT TISSUES: No suspicious bony or soft tissue abnormalities. CT/CT enterography IMPRESSION: Unremarkable CT enterography examination. Electronically signed by: Ricci Reyes MD 04/04/2025 12:57 PM EDT
[2025-04-04] MEDS: iohexoL 350 MG/ML 100 ML INFUS..BTL 85 ML IV (12:05)
[2025-04-04] MEDS: Sorbitol/Mannit/Xanth Imaging 500 ML LIQUID 1500 ML PO (12:06)
--- OUTSIDE RECORDS SUMMARY | 2025-04-04 12:11 | XMS_ITS | Clinical Summary ---
Author Organization [employer] Address 75 [facility] 7t [place] [address] Care Team Providers Care Property Loss Insurance Claim Adjuster Name Role Phone Maranda Oakes MD Primary Care Provider [phone] Richard Enrique Unavailable [phone] Allergies Active Allergy Reactions Criticality Noted [...] available for review at this moment from [facility], reports had CT scan of the abdomen, [...] Encounters Date Type Department Care Team Description 03/31/2025 Orders Only GENERIC EXTERNAL DATA DEPARTMENT Provider, Generic External Data 03/10/2025 Orders Only [facility] MED & PEDS [address] [place] [address] Maranda Oakes MD Crohn's disease of small intestine with rectal bleeding (CMS/HCC) (Primary Dx) 03/09/2025 Telephone [facility] MEDICINE [address] [place] [address] Maranda Oakes MD 03/09/2025 Telephone [facility] MEDICINE [address] [place] [address] Maranda Oakes MD Referral 03/09/2025 Telephone [facility] MED & PEDS [address] [place] [address] Maranda Oakes MD 02/22/2025 Population Health Risk Score [facility] Department [address] [phone] Provider, Population Health Generic 02/15/2025 Refill [facility] MED & PEDS [address] [place] [address] Maranda Oakes MD 01/26/2025 10:00 AM EST Office Visit [facility] ADULT DENTAL [address] [place] [address] Richard Enrique 01/11/2025 10:00 AM EST Office Visit [facility] ADULT DENTAL [address] [place] [address] Iva Alexanderpreet 01/06/2025 Orders Only GENERIC EXTERNAL DATA DEPARTMENT [...] the past 12 months, has t he [employer] gas, oil or water company threatened to [...] Procedure Name Priority Date/Time Associated Diagnosis Comments CREATININE, SERUM Routine 03/31/2025 3:1 6 PM EDT UREA NITROGEN (BUN) Routine 03/31/2025 3 :16 PM EDT CASE PRESENTATION, DETAILED AND EXTENSIVE TREATMENT PLANNING [...] Routine 01/26/2023 3:30 PM EST HIV ANTIBODY/ANTIGEN (PR DPH) Routine 01/26/2023 3:30 PM EST from Last 3 Months or Most Recently Relevant to Health Maintenance Results * Creatinine, Serum (03/31/2025 3:16 PM EDT) Creatinine, Serum 0.89 0.5 - 1.4 mg/dL [facility] Estimated Glomerular Filt Rate >60 [facility] Comment:Chronic Kidney Disea se: Estimated GFR < 60 mL/min/1.64j0Tuurkq Kidney Disease: Estimated GFR < 15 mL/min/1.73m2 03/31/2025 3:16 PM EDT 03/31/2025 3:16 PM EDT us Generic External Data Provider LAB BLOOD ORDERAB LES Final Result Performing Organization Address [facility]/ZIP Co de Phone Number [facility] [address] [place] [phone] * BUN (Blood Urea Nitrogen) (03/31/2025 3:16 PM EDT) Urea Nitrogen (BUN) 11 9 - 16 mg/dL [facility] 03/31/2025 3:16 PM EDT 03/31/2025 3:16 PM EDT us Generic External Data Provider LAB BLOOD ORDERAB LES Final Result [facility] [address] [place] [address] [phone] * (ABNORMAL) Basic Metabolic Panel, Fasting (01/06/2025 11:56 AM EST) [facility] Sodium 138 135 - 145 mmol/L [facility] Potassium 4.1 3.3 - 5.1 mmol/L [facility] Chloride 109(H) 96 - 108 mmol/L [facility] Carbon Dioxide 25 22 - 29 mmol/L [facility] Anion Gap 8(L) 12 - 20 [facility] Urea Nitrogen (BUN) 10 9 - 16 mg/dL [facility] Creatinine, Serum 0.83 0.5 - 1.4 mg/dL [facility] Estimated Glomerular Filt Rate >60 [facility] Comment:Chronic Kidney Disea se: Estimated GFR < 60 mL/min/1.19g7Ljoskl Kidney Disease: Estimated GFR < 15 mL/min/1.73m2 Glucose Fasting 88 60 - 99 mg/dL [facility] Calcium 9.5 8.4 - 10.2 mg/dL [facility] Blood Venous blood specimen / Unknown 01/06/2025 11:56 AM EST 01/06/2025 11:56 AM EST us Maranda Oakes MD LAB BLOOD ORDERABLES Final Result [facility] [address] [place] [phone] * (ABNORMAL) CBC auto differential (01/06/2025 11:56 AM EST) Pathologist [facility] White Blood Count 5.5 4.8 - 10.8 X10*3/uL [facility] Red Blood Count 5.31 4.60 - 5.80 X10*6/uL [facility] Hemoglobin 15.1 14.0 - 18.0 g/dl [facility] Hematocrit 45.5 42.0 - 52.0 % [facility] Mean Corpuscular Volume 85.7 80.0 - 98.0 fL [facility] Mean Corpuscular Hemoglobin 28.4 27.0 - 33.0 pg [facility] Mean Corpuscular HGB Conc 33.2 31.0 - 36.0 g/dl [facility] Red Cell Distribution Width 12.9 11.0 - 16.0 % [facility] Platelet Count 314 160 - 400 X10*3/uL [facility] Mean Platelet Volume 9.3(L) 9.4 - 12.4 fL [facility] Neutrophils Percent Auto 59.7 45 - 73 % [facility] Imm Gran Pct Auto 0.5(H) 0.0 - 0.4 % [facility] Lymphocytes Percent Auto 26.3 20 - 40 % [facility] Monocytes Percent Auto 9.6 2 - 11 % [facility] Eosinophils Percent Auto 3.4 0 - 4 % [facility] Basophils Percent Auto 0.5 0 - 2 % [facility] NRBC Pct Auto 0.0 0.0 - 0.2 /100WBC [facility] Neutrophils Absolute Auto 3.3 2.0 - 8.3 x10*3/uL [facility] Imm Gran Abs Auto 0.03 0.00 - 0.03 X10*3/uL [facility] Lymphocytes Absolute Auto 1.5 1.2 - 4.9 X10*3/uL [facility] Monocytes Absolute Auto 0.5 0.1 - 1.2 X10*3/uL [facility] Eosinophils Absolute Auto 0.2 0.0 - 0.4 X10*3/uL [facility] Basophils Absolute Auto 0.0 0.0 - 0.2 X10*3/uL [facility] NRBC Abs Auto 0.000 0.0 - 0.012 X10*3/uL [facility] Blood Venous blood specimen / Unknown 01/06/2025 11:56 AM EST 01/06/2025 11:56 AM EST Maranda Oakes MD LAB BLOOD ORDERABLES Final Result Performing Organization Address [facility]/ZIP Co de Phone Number [facility] [address] [place] [address] [phone] * Basic Metabolic Panel (01/06/2025 11:56 AM EST) Sodium 142 135 - 145 mmol/L [facility] Potassium 4.2 3.3 - 5.1 mmol/L [facility] Chloride 105 96 - 108 mmol/L [facility] Carbon Dioxide 24 22 - 29 mmol/L [facility] Anion Gap 17 12 - 20 [facility] Urea Nitrogen (BUN) 10 9 - 16 mg/dL [facility] Creatinine, Serum 0.82 0.5 - 1.4 mg/dL [facility] Estimated Glomerular Filt Rate >60 [facility] Comment:Chronic Kidney Disea se: Estimated GFR < 60 mL/min/1.77n4Pjqcut Kidney Disease: Estimated GFR < 15 mL/min/1.73m2 Glucose 88 60 - 115 mg/dL [facility] Calcium 9.4 8.4 - 10.2 mg/dL [facility] 01/06/2025 11:5 6 AM EST 01/06/2025 11:56 AM EST us Generic External Data Provider LAB BLOOD ORDERAB LES Final Result Performing Organization Address [facility]/ZIP Co de Phone Number [facility] [address] [place] [address] [phone] * (ABNORMAL) Lipid Panel, Standard (03/19/2024 11:00 AM EDT) Triglycerides 69 <150 mg/dL [facility] Comment:Desirable Triglyceri de: less than 150 mg/dLBorderline High Triglyceride 150-199 mg/dLHigh Triglyceride: 200-499 mg/dLVery High Triglyceride: greater than or equal to 5OO mg/dL Cholesterol 158 <200 mg/dL [facility] Comment:Desirable Cholestero l: less than 200 mg/dLBorderline High Cholesterol: 200-239 mg/dLHigh Cholesterol: greater than 239 mg/dL LDL Cholesterol Calculated 111(H) <100 mg/dL [facility] Comment:Desirable LDL: less than 100 mg/dLNear Optimal/Above Optimal LDL: 110- 129 mg/dLBorderline High LDL: 130-159 mg/dLHigh LDL: 160-189 mg/dLVery High LDL: greater than or equal to 190 mg/dL HDL Cholesterol 34(L) >40 mg/dL [facility] Comment:Desirable HDL: great er than 40 mg/dL Note: This HDL assay may give artificially low results in patients with liver disease. Blood Venous blood specimen / Unknown 03/19/2024 11:00 AM EDT 03/19/2024 11:00 AM EDT Maranda Oakes MD LAB BLOOD ORDERABLES Final Result [facility] [address] [place] [phone] * HIV Ab/Ag ([facility]) (01/26/2023 3:30 PM EST) HIV AB/AG Nonreactive Nonreactive [facility] Comment:HIV-1 p24 Ag and/or HIV-1/HIV-2 Ab not detected.A test result that is nonreactive does not exclude thepossibility of exposure to or infection with HIV-1 and/orHIV-2. Nonreactive results in this assay for individualswith prior exposure to HIV-1 and/or HIV-2 may be due toantigen and antibody levels that are below the limit ofdetection of this assay.The [employer] HIV Ag/Ab Combo assay result andsupplemental assay results should be interpreted inconjunction with the patient's clinical presentation,history and other laboratory results. If the results areinconsistent with clinical evidence, additional testing issuggested to confirm the result. 01/26/2023 3:30 PM EST 01/26/2023 3:30 PM EST [facility] External Provider LAB BLO OD ORDERABLES Final Result Performing Organization Address [facility] Co de Phone Number [facility] [address] [place] [address] [phone] * Hepatitis Panel, General (01/26/2023 3:30 PM EST) Hepatitis A IgM Nonreactive Nonreactive [facility] Comment:IgM antibodies to ESPARZA V not detected; does not exclude earlyacute or recovered HAV infection. ~Hepatitis B Surface Antibody NONREACTIVE Nonreactive [facility] Comment:Nonreactive: < 8.00 mIU/mL Hepatitis B Core Antibody Nonreactive Nonreactive [facility] Hepatitis C Antibody Nonreactive Nonreactive [facility] Comment:Antibodies to HCV no t detected; does not exclude early acuteHCV infection. Hepatitis B Surface Ag Negative Negative [facility] 01/26/2023 3:30 PM EST 01/26/2023 3:30 PM EST [facility] External Provider LAB BLO OD ORDERABLES Final Result Performing Organization Address [facility] Co de Phone Number [facility] [address] [place] [address] [phone] from Last 3 Months or Most Recently Relevant to Health Maintenance Insurance [facility] AD[place] Care Teams Property Loss Insurance Claim Adjuster Relationship Specialty Start Date End Date Maranda Oakes MD [address] [place] [phone] PCP - General Internal Medicine 07/05/24 Richard Enrique [address] [place] [address] Dental Orthopedically Impaired Teacher 01/25/25
--- OUTSIDE RECORDS SUMMARY | 2025-04-04 12:11 | XMS_ITS | Encounter Summary ---
Author Organization [employer] Address [address] [facility] 7 [place] [address] Care Team Providers Care Synthetic Plasterer Name Role Phone Maranda Oakes MD Primary Care Provider [phone] Maranda Oakes MD Primary Care Provider Richard Enrique Unavailable [phone] Reason for Visit * Reason Onset Date Comments Hospital Follow-up 06/22/2024 Encounter Details Date Type Department Care Team ([facility] st Contact Info) Description 06/22/2024 Telephone [facility] MEDICINE [address] [place] [address] Maranda Oakes MD [address] [place], [place] [phone] Hospital Follow-up Social History Tobacco Use Types [...] from pt requesting a HDF appt. Hospital: [facility] Date of admission: 06/20 Discharge date: 06/23 Diagnosed: No further details provided documented in this encounter Plan of Treatment Not on file documented as of this encounter Visit Diagnoses Not on filedocumented in this encounter Additional Health Concerns Assessment Noted Time PHQ-9 Depression Total Score: 2 11/25/20 22 3:00 PM EST documented as of this encounter Care Teams Synthetic Plasterer Relationship Specialty Start Date End Date Maranda Oakes MD [address] [place] [address] PCP - General Internal Medicine 06/08/24 07/04/24 Maranda Oakes MD [address] [place] [address] PCP - General Internal Medicine 07/05/24 Richard Enrique [address] [place] [address] Dental Pe Manager 01/25/25 documented as of this encounter
--- OUTSIDE RECORDS SUMMARY | 2025-04-04 12:11 | XMS_ITS | Encounter Summary ---
Author Organization [employer] Address 75 [facility] 7t [place] [address] Care Team Providers Care Cuffer Name Role Phone Maranda Oakes MD Primary Care Provider Richard Enrique Unavailable [phone] Reason for Visit * Reason Onset Date Comments Referral 12/02/2024 Encounter Details Date Type Department Care Team ([facility] st Contact Info) Description 12/02/2024 Telephone [facility] MEDICINE [address] [place] [address] Maranda Oakes MD [address] [place] [address] Referral Social History Tobacco Use Types Packs/Day [...] : DATE: 12/09/24 TIME: 09:00 AM Address: [address] [place] [address] Visits: 12 Facility Name: [facility] Type of Specialist: pulmonary DX: D86.0 Provider : Dr Rosales Burnham Provider NPI : [id number] Phone # : [phone] Fax #: [phone] documented in this encounter Plan of Treatment Not on file documented as of this encounter Visit Diagnoses Not on filedocumented in this encounter Additional Health Concerns Assessment Noted Time PHQ-9 Depression Total Score: 2 11/25/20 22 3:00 PM EST documented as of this encounter Care Teams Cuffer Relationship Specialty Start Date End Date Maranda Oakes MD [address] [place] [address] PCP - General Internal Medicine 07/05/24 Richard Enrique [address] [place] [address] Dental Hotel Clerk 01/25/25 documented as of this encounter
--- OUTSIDE RECORDS SUMMARY | 2025-04-04 12:11 | XMS_ITS | Encounter Summary ---
Author Organization [employer] Address 75 [facility] 7t [place] [address] Care Team Providers Care Rib Bender Name Role Phone Maranda Oakes MD Primary Care Provider Richard Enrique Unavailable [phone] Encounter Details Date Type Department Care Team ([facility] Contact Info) Description 10/19/2024 Orders Only [facility] [address] [place] [address] Provider, MD Srinath Social History Tobacco Use [...] documented as of this encounter Care Teams Rib Bender Relationship Specialty Start Date End Date Maranda Oakes MD [address] [place] [address] PCP - General Internal Medicine 07/05/24 Richard Enrique [address] [place] [address] Dental Manager Real Estate 01/25/25 documented as of this encounter
--- OUTSIDE RECORDS SUMMARY | 2025-04-04 12:11 | XMS_ITS | Encounter Summary ---
Author Organization [employer] Address [address] [place] [address] 7 [place] [address] Care Team Providers Care Tongue Trimmer Name Role Phone Kriss Woodward MD Primary Care Provider Maranda Oakes MD Primary Care Provider Maranda Oakes MD Primary Care Provider Richard Enrique Unavailable [phone] Reason for Visit * Reason Comments Med Change Request Encounter Details Date Type Department Care Team ([facility] Contact Info) Description 11/25/2022 Refill [facility] MED & PEDS [address] [place], [place] [phone] Kriss Woodward MD [address] [place] [address] Chronic diarrhea Social History Tobacco Use Types [...] Recorded In the last 10 days, have heather u been in contact with someone who [...] documented as of this encounter Care Teams Tongue Trimmer Relationship Specialty Start Date End Date Kriss Woodward MD [address] [place] [address] PCP - General Family Medicine 02/06/23 06/07/24 Maranda Oakes MD [address] [place] [address] PCP - General Internal Medicine 06/08/24 07/04/24 Maranda Oakes MD [address] [place] [address] PCP - General Internal Medicine 07/05/24 Richard Enrique [address] [place] [address] Dental Abrasive Water Jet Cutter Operator 01/25/25 documented as of this encounter
--- OUTSIDE RECORDS SUMMARY | 2025-04-04 12:11 | XMS_ITS | Encounter Summary ---
Author Organization [employer] Address [address] [facility] [address] 7[address] [place] [address] Care Team Providers Care Set Illustrator Name Role Phone Maranda Oakes MD Primary Care Provider [phone] Richard Enrique Unavailable [phone] Encounter Details Date Type Department Care Team ([facility] st Contact Info) Description 03/31/2025 Orders Only GENERIC EXTERNAL DATA DEPARTMENT Provider, Generic External Data Social History Tobacco Use Types Packs/Day Years [...] (BUN) Routine 03/31/2025 3 :16 PM EDT documented in this encounter Results * Creatinine, Serum (03/31/2025 3:16 PM EDT) Creatinine, Serum 0.89 0.5 - 1.4 mg/dL [facility] Estimated Glomerular Filt Rate >60 [facility] Comment:Chronic Kidney Disea se: Estimated GFR < 60 mL/min/1.18n5Ruzoby Kidney Disease: Estimated GFR < 15 mL/min/1.73m2 03/31/2025 3:16 PM EDT 03/31/2025 3:16 PM EDT us Generic External Data Provider LAB BLOOD ORDERAB LES Final Result Performing Organization Address [facility]/ZIP Co de Phone Number [facility] [address] [place] [phone] * BUN (Blood Urea Nitrogen) (03/31/2025 3:16 PM EDT) Urea Nitrogen (BUN) 11 9 - 16 mg/dL [facility] 03/31/2025 3:16 PM EDT 03/31/2025 3:16 PM EDT us Generic External Data Provider LAB BLOOD ORDERAB LES Final Result Performing Organization Address City/[facility]/ZIP Co de Phone Number [facility] [address] [place] [address] [phone] documented in this encounter Visit Diagnoses Not on filedocumented in this encounter Additional Health Concerns Assessment Noted Time PHQ-9 Depression Total Score: 2 11/25/20 22 3:00 PM EST documented as of this encounter Care Teams Set Illustrator Relationship Specialty Start Date End Date Maranda Oakes MD [address] [place] [address] PCP - General Internal Medicine 07/05/24 Richard Enrique [address] [place] [address] Dental Tail End Rider 01/25/25 documented as of this encounter
--- OUTSIDE RECORDS SUMMARY | 2025-04-04 12:11 | XMS_ITS | Encounter Summary ---
Author Organization [employer] Address [address] [facility] [place] [address] Care Team Providers Care Professor Of Marketing Name Role Phone Maranda Oakes MD Primary Care Provider Richard Enrique Unavailable [phone] Encounter Details Date Type Department Care Team ([facility] Contact Info) Description 08/15/2024 Orders Only [facility] MED & PEDS [address] [place] [address] Provider, MD Srinath Social History Tobacco Use [...] of this encounter Care Teams Professor Of Marketing Relationship Specialty Start Date End Date Maranda Oakes MD [address] [place] [address] PCP - General Internal Medicine 07/05/24 Richard Enrique [address] [place] [address] Dental District Or District Office Director 01/25/25 documented as of this encounter
--- OUTSIDE RECORDS SUMMARY | 2025-04-04 12:11 | XMS_ITS | Encounter Summary ---
Author Organization [employer] Address [address] [facility] 7t [place] [address] Care Team Providers Care Road Freight Conductor Name Role Phone Maranda Oakes MD Primary Care Provider Richard Enrique Unavailable [phone] Encounter Details Date Type Department Care Team ([facility] st Contact Info) Description 12/09/2024 Orders Only [facility] [address] [place] [address] Provider, MD Srinath Social History Tobacco Use [...] documented as of this encounter Care Teams Road Freight Conductor Relationship Specialty Start Date End Date Maranda Oakes MD [address] [place] [address] PCP - General Internal Medicine 07/05/24 Richard Enrique [address] [place] [address] Dental Clinical Trial Associate 01/25/25 documented as of this encounter
--- OUTSIDE RECORDS SUMMARY | 2025-04-04 12:11 | XMS_ITS | Clinical Summary ---
Author Organization [address] [facility] Address [address] [place] [address] Phone Care Team Providers Care Transmission Line Engineer Name Role Phone Maranda Oakes MD Primary Care Provider [phone] Allergies Active Allergy Reactions Criticality Noted Date [...] - 02/08/2025 11:59 PM EDT Hospital Encounter [facility] Xray [address] [place] [phone] Pulmonary sarcoidosis (CMS/HCC V24) Discharge Disposition: Home or Self Care 01/31/2025 9:00 AM EST Office Visit Pulmonolgy - [place] [address] [place] [phone] Rosales Burnham MD Dilated cardiomyopathy (CMS/HCC V24, CMS/HCC V28) (Primary Dx); Pulmonary sarcoidosis (CMS/HCC V24) 01/25/2025 10:10 AM EST Office Visit [facility] [address] [place] [address] Jami Oliver NP Dilated cardiomyopathy (CMS/HCC V24, CMS/HCC V28) (Primary Dx); Sinus tachycardia 01/05/2025 Telephone [facility] [address] [place] [address] Av Gloria MD Labs Only [...] 8:45 AM EDT Office Visit Pulmonolgy - [place] [address] [place] [address] Rosales Burnham MD [address] [place] [address] 08/04/2025 10:50 AM EDT Office Visit [facility] [address] [place] [address] Av Gloria MD [address] [place] [address] DR[address] [place] [address] Health Maintenance Due Date Last Done Comments [...] since the prior study performed 12/09/2024. Code 38896 -------- FINAL REPORT -------- Dictated By: Ivan Costa Dictated Date: 02/08/2025 11:48 ET Assigned Physician: Ivan Costa Reviewed and Electronically Signed By: Ivan Costa Signed Date: 02/08/2025 11:50 ET Workstation ID: [id number] Transcribed By: Self Edit Transcribed Date: 02/08/2025 [...] since the prior study performed 12/09/2024. Code 78204 -------- FINAL REPORT -------- Dictated By: Ivan Costa Dictated Date: 02/08/2025 11:48 ET Assigned Physician: Ivan Costa Reviewed and Electronically Signed By: Ivan Costa Signed Date: 02/08/2025 11:50 ET Workstation ID: [id number] Transcribed By: Self Edit Transcribed Date: 02/08/2025 11:48 ET us Rosales Burnham MD IMG XR PROCEDURES Final Result from Last 3 Months Insurance MEDICAID - [place] Care Teams Transmission Line Engineer Relationship Specialty Start Date End Date Maranda Oakes MD [address] [place] [address] PCP - General 07/11/24
--- OUTSIDE RECORDS SUMMARY | 2025-04-04 12:12 | XMS_ITS | Encounter Summary ---
Author Organization [employer] Address [address] [place] [address] 7 [place] [address] Care Team Providers Care Chinchilla Machine Operator Name Role Phone Kriss Woodward MD Primary Care Provider Maranda Oakes MD Primary Care Provider Maranda Oakes MD Primary Care Provider Richard Enrique Unavailable [phone] Reason for Visit * Reason Onset Date Comments Appointment 03/11/2023 Encounter Details Date Type Department Care Team (Late st Contact Info) Description 03/11/2023 Telephone [facility] ADULT DENTAL [address] [place] [address] Richa Velasquez DDS [address] [place] [address] Appointment Social History Tobacco Use Types Packs/Day [...] appt. He has been on waitlist in [facility] since 12/2021. He would like to be scheduled DR documented in this encounter Plan of Treatment Not on file documented as of this encounter Visit Diagnoses Not on filedocumented in this encounter Additional Health Concerns Assessment Noted Time PHQ-9 Depression Total Score: 2 11/25/20 22 3:00 PM EST documented as of this encounter Care Teams Chinchilla Machine Operator Relationship Specialty Start Date End Date Kriss Woodward MD [address] [place] [address] PCP - General Family Medicine 02/06/23 06/07/24 Maranda Oakes MD [address] [place] [address] PCP - General Internal Medicine 06/08/24 07/04/24 Maranda Oakes MD [address] [place] [address] PCP - General Internal Medicine 07/05/24 Richard Enrique [address] [place] [address] Dental Fur Vault Attendant 01/25/25 documented as of this encounter
--- OUTSIDE RECORDS SUMMARY | 2025-04-04 12:12 | XMS_ITS | Encounter Summary ---
Author Organization [employer] Address 75 [facility] 7t [place] [address] Care Team Providers Care Floral Manager Name Role Phone Maranda Oakes MD Primary Care Provider Richard Enrique Unavailable [phone] Encounter Details Date Type Department Care Team ([facility] st Contact Info) Description 03/09/2025 Telephone [facility] MEDICINE [address] [place] [address] Maranda Oakes MD [address] [place], [place] [phone] Social History Tobacco Use Types Packs/Day Years [...] documented as of this encounter Care Teams Floral Manager Relationship Specialty Start Date End Date Maranda Oakes MD [address] [place] [address] PCP - General Internal Medicine 07/05/24 Richard Enrique 230 [place] [address] Dental Direct Mail Manager 01/25/25 documented as of this encounter
--- OUTSIDE RECORDS SUMMARY | 2025-04-04 12:12 | XMS_ITS | Encounter Summary ---
Author Organization [employer] Address 75 [facility] 7t [place] [address] Care Team Providers Care Operations Officer Afloat Name Role Phone Kriss Woodward MD Primary Care Provider Maranda Oakes MD Primary Care Provider [phone] Maranda Oakes MD Primary Care Provider Richard Enrique Unavailable [phone] Reason for Visit * Reason Onset Date Comments Nurse Triage 02/01/2024 Encounter Details Date Type Department Care Team ([facility] st Contact Info) Description 02/01/2024 Telephone [facility] MED & PEDS [address] [place] [address] Kriss Woodward MD [address] [place] [address] Nurse Triage Social History Tobacco Use Types [...] this outcome Please contact pt spouse at [phone] documented in this encounter Plan of Treatment Not on file documented as of this encounter Visit Diagnoses Not on filedocumented in this encounter Additional Health Concerns Assessment Noted Time PHQ-9 Depression Total Score: 2 11/25/20 22 3:00 PM EST documented as of this encounter Care Teams Operations Officer Afloat Relationship Specialty Start Date End Date Kriss Woodward MD [address] [place] [address] PCP - General Family Medicine 02/06/23 06/07/24 Maranda Oakes MD 505 [place] [address] PCP - General Internal Medicine 06/08/24 07/04/24 Maranda Oakes MD [address] [place] [address] PCP - General Internal Medicine 07/05/24 Richard Enrique [address] [place] [address] Dental Center Sales And Service Associate 01/25/25 documented as of this encounter
--- OUTSIDE RECORDS SUMMARY | 2025-04-04 12:12 | XMS_ITS | Encounter Summary ---
Author Organization [employer] Address [address] [place] [address] [address] [place] [address] Care Team Providers Care Cant Gang Sawyer Name Role Phone Maranda Oakes MD Primary Care Provider [phone] Richard Enrique Unavailable [phone] Reason for Referral * Consultation (Routine) - Closed Specialty Diagnoses / Procedures Referred By Alexi baumann Referred To Contact Gastroenterology Diagnoses Crohn's disease of small intestine with rectal bleeding (CMS/HCC) Maranda Oakes MD [address] [place] [address] Phone: tel: fax: Referral ID Status Reason Start Date Expiration Date V isits Requested Visits Authorized [id number] Closed Specialty Services Required 03/10/2025 03/10/2026 1 1 Encounter Details Date Type Department Care Team ([facility] st Contact Info) Description 03/10/2025 Orders Only [facility] CHC MED & PEDS [address] [place] [address] Maranda Oakes MD [address] [place] [address] Crohn's disease of small intestine with rectal [...] documented as of this encounter Care Teams Cant Gang Sawyer Relationship Specialty Start Date End Date Maranda Oakes MD [address] [place] [address] PCP - General Internal Medicine 07/05/24 Richard Enrique [address] [place] [address] Dental Blow Pit Operator 01/25/25 documented as of this encounter
--- OUTSIDE RECORDS SUMMARY | 2025-04-04 12:12 | XMS_ITS | Encounter Summary ---
Author Organization [employer] Address 75 [facility] 7t [place] [address] Care Team Providers Care Medical Transcription Supervisor Name Role Phone Maranda Oakes MD Primary Care Provider Richard Enrique Unavailable [phone] Reason for Visit * Reason Onset Date Comments Referral 03/09/2025 Encounter Details Date Type Department Care Team ([facility] st Contact Info) Description 03/09/2025 Telephone [facility] MEDICINE [address] [place] [address] Maranda Oakes MD [address] [place] [address] Referral Social History Tobacco Use Types Packs/Day [...] * Telephone Encounter - Thai Murdock - 03/09/2025 4:23 PM EDT TC from pt requesting new referral : DATE: 03/07/25 ( has to be back dated ) TIME: n/a Address: [address] [place] [address] [place] [id number] Visits: 6 Facility Name: [facility] Type of Specialist: Gastro DX: crones Provider : Dr Guillermina Mccall Provider NPI : [id number] Facility Phone # : [phone] Fax #: [phone] documented in this encounter Plan of Treatment Not on file documented as of this encounter Visit Diagnoses Not on filedocumented in this encounter Additional Health Concerns Assessment Noted Time PHQ-9 Depression Total Score: 2 11/25/20 22 3:00 PM EST documented as of this encounter Care Teams Medical Transcription Supervisor Relationship Specialty Start Date End Date Maranda Oakes MD [address] [place] [address] PCP - General Internal Medicine 07/05/24 Richadr Enrique [address] [place] [address] Dental Linotype Machinist Apprentice 01/25/25 documented as of this encounter
== END 2025-04-04 10:36 | disposition home or self-care (01) ==
LOC: HO.CT 10:35
PROVIDERS: PCP Internal Medicine; Visit Provider Nurse Practitioner Family
DX: R19.5 Other fecal abnormalities (principal); R79.82 Elevated C-reactive protein (CRP); K50.90 Crohn's disease, unspecified, without complications
CPT/HCPCS: 74177; Q9967

== ENCOUNTER → 2025-04-04 10:38 | Outpatient (BNV) | payer MEDICAID, SELFPAY | PROVIDERS: PCP Internal Medicine; Visit Provider Radiology Diagnostic Radiology | DX: R19.5 Other fecal abnormalities (principal) | CPT/HCPCS: 74177 ==

== ENCOUNTER 2025-10-24 14:43 | Outpatient (AMB) | payer MEDICAID, SELFPAY ==
--- OUTSIDE RECORDS SUMMARY | 2025-09-21 10:00 | XMS_ITS | Encounter Summary ---
Author Organization [facility] Address [address] [place] [address] Phone Care Team Providers Care Feed House Supervisor Name Role Phone Maranda Oakes MD Primary Care Pr ovider Reason for Visit * Consultation (Routine) - Closed Specialty Diagnoses / Procedures Referred By Alexi baumann Referred To Contact Optometry Diagnoses CL Exam(NON-MEDICAL) Procedures ESTABLISHED CONTACT LENS Maranda Oakes MD [address] [place] [address] Phone: tel: fax: Lesly Valentin, OD [address] [place] [address] Phone: tel: fax: [email or web address] Referral ID Status Reason Start Date Expiration Date Visits Re quested Visits Authorized [id number] Closed 09/20/2025 09/20/2026 6 1 Encounter Details Date Type Department Care Team (Late st Contact Info) Description 09/21/2025 11:00 AM EDT Office Visit [facility] [address] [address] Lesly Valentin, OD [address] [place] [address] [email or web address] Keratoconus of both eyes (Primary Dx); Hypermetropia of left eye; Irregular astigmatism of both eyes Social History Tobacco Use Types Packs/Day Years Used Date Smoking Tobacco: Never Smokeless Tobacco: Never Alcohol Use Standard Drinks/Week Comments No 0 (1 standard drink = 0.6 oz pur e alcohol) Education Answer Date Recorded Are you interested in more education? Not on maryann e 03/26/2023 Are you concerned about learning? Not on file 03/26/2023 No 03/26/2023 No 03/26/2023 Digital Access Answer Date Recorded No 04/22/2023 No 04/22/2023 Reliable internet access at home? Not on file 04/22/2023 Device with a working camera? Not on file Sex and Gender Information Value Date Recorded Sex Assigned at Male 08/09/2021 12:56 PM EDT Legal Sex Male 1:02 PM EST Gender Identity Male 08/09/2021 12:56 PM EDT Sexual Orientation Straight 08/09/2021 12 :56 PM EDT documented as of this encounter Progress Notes * Lesly Valentin, OD - 09/21/2025 11:00 AM EDT 24 y.o. male (new pt to me 08/17/24) here for vision rehab in the setting of [facility] OU # Keratoconus OD > OS # S/p CXL OU 02/17/22 - With central striae and scarring OD - Overdue for cornea f/u - will see Dr. Dale 09/26/25 --- Updated spec Rx provided today per request, OD balance. Discussed change compared to habitual, accepted in trial frame. # Scleral lens wearer OU - Previously followed by Dr. Cerrato, refit after CXL OU - Today BCVA 20/30-2 OD, OS through scleral lenses - Happy with vision and comfort OU - Comfort improved since adding Hydrapeg coating and use of ATs - Overall good fit OU however lenses were inserted in office today so was unable to assess after prolonged wear time --- Submit PA, order lenses once approved --- Return for follow up and lens dispense in 6 weeks --- Keep scheduled cornea appt 09/26/25 Contact lens hygiene recommendations: -No sleeping or naps wearing contact lenses due to increased risk of ocular infection/inflammation -No water with contact lenses: avoid swimming/hot tubs and showers wearing contact lenses -Use prescribed care system for disinfection - ClearCare to clean, Addipak to fill -Replace contact lens case every 3 months Submit PA for lenses Return for lens dispense/follow-up in 6 weeks I personally spent 45 minutes preparing for, caring for the patient ([id number] and tjw-[id number]-wd-face), and finalizing the visit for this patient documented in this encounter Plan of Treatment Upcoming Encounters Date Type Department Care Team (Late st Contact Info) Description 11/02/2025 3:00 PM EST Office Visit [facility] [address] [address] Lesly Valentin, OD [address] [place] [id number] [email or web address] 12/05/2025 3:40 PM EST Office Visit [facility] [address] [facility] [address] [place] [address] Anuja Pulido MD [address] [facility], [address] [place] [address] [email or web address] documented as of this encounter Visit Diagnoses Diagnosis Keratoconus of both eyes- Primary Hypermetropia of left eye Irregular astigmatism of both eyes documented in this encounter Care Teams Feed House Supervisor Relationship Specialty Start Date End Date Maranda Oakes MD PCP - General Internal Medicine 08/17/24 documented as of this encounter Additional Source Comments The information contained in this document represents components of the legal health record. It is not the complete legal health record.[facility]
[2025-10-24 14:45] VITALS: BP 144/89; PULSE 92; BMI 43.1
--- NOTE | 2025-10-24 14:45 | MHC.OFFVIS ---
Vital Signs 10/24/25 14:45 Height 6 ft 1 in Weight 327 lb BMI 43.1 BP 144/89 H Blood Pressure Location Rt radial Position Sitting Pulse 92 Intake Visit Reasons: Lipoma torso Intake Note: Patient referred by PCP Dr. Oakes for evaluation and treatment of Lipoma on Lt upper back. Patient c/o: enlarging, bothersome, on and off tender to touch. Agri Business Agent Required: No Accompanied by: Yeleiska Allergies adalimumab (From Humira) Allergy (Severe, Verified 10/24/25 14:49) sarcoidosis bee venom protein (honey bee) Allergy (Severe, Verified 10/24/25 14:49) Anaphylaxis sacubitril (From Entresto) Adverse Reaction (Severe, Verified 10/24/25 14:49) Numbness valsartan (From Entresto) Adverse Reaction (Severe, Verified 10/24/25 14:49) Numbness Medication List - Last Reconciled 10/24/25 by Thanh Murillo MD albuterol sulfate 90 mcg/actuation (Ventolin HFA) 2 puffs inhalation Q4H PRN blood pressure test kit-large As directed epinephrine 0.3 mL IM ONCE esomeprazole magnesium (Nexium) 40 mg PO DAILY fluticasone furoate 100 mcg/actuation (Arnuity Ellipta) 1 inh inhalation DAILY hydrochlorothiazide 12.5 mg PO DAILY mesalamine (Lialda) 2.4 grams (2 x 1.2 gram) PO DAILY 3 months mesalamine ER (Pentasa) 1,000 mg (2 x 500 mg) PO BID 90 days HPI Comments Details: 24-year-old gentleman presents with a longstanding history of a progressively enlarging left upper back soft tissue mass. He reports he has had it basically ever since he can remember it is gradually increasing in size any finds that worrisome and bothersome. He denies any trauma or instrumentation to the area. He denies any imaging of the area. [facility] Medical History Sarcoidosis of lung Obesity Asthma Surgical History Hx of colonoscopy History of esophagogastroduodenoscopy (EGD) History of hand surgery S/P eye surgery Family History Mother HTN (hypertension) Diabetes Anemia Maternal Grandmother Anemia Diabetes HTN (hypertension) Lung cancer Social History Household Members: Significant Other and Children Alcohol intake: never Patient Tobacco Use Status: Never used Tobacco Review of Systems Const All systems reviewed & are unremarkable except as noted in HPI and below Physical Exam Vital Signs: Last Vital Signs Pulse 92 10/24/25 14:45 BP 144/89 H 10/24/25 14:45 BMI result Body Mass Index 43.1 Const General: cooperative, healthy appearing and comfortable Orientation/consciousness: oriented to person, oriented to place and oriented to time HEENT Head: Yes normal to inspection, Yes normocephalic and Yes atraumatic Eyes General: appearance normal, both eyes and all related structures Pupils: Equal, round and reactive pupils present EOM: EOMs intact bilaterally Neck Neck: Yes normal visual inspection Chest Chest palpation & inspection: normal inspection of the chest Resp Effort & Inspection: normal respiratory effort and able to speak in complete sentences Cardio Rate: regular rate Rhythm: regular rhythm GI Inspection: Yes normal to inspection Back/Spine/Pelvis Cervical Spine: normal cervical lordosis Thoracic/Lumbar Spine: thoracic and lumbar spine normal to inspection Back/spine/pelvis image:  1. 5-6 inch diameter nontender mobile soft tissue mass consistent with lipoma Neuro General: oriented to person, oriented to place and oriented to time Cranial nerves: Yes CN's II-XII intact bilaterally and Yes Equal, round and reactive pupils present Extrem General: Yes normal to inspection Assessment & Plan Assessment & Plan (1) Lipoma: Code(s): D17.9 - Benign lipomatous neoplasm, unspecified Category: Medical Plan: I told the patient I felt excisional biopsy of his left upper back lipoma reason reasonable. I reviewed with him the risks that are involved with such an endeavor. These include but are not limited to bleeding, infection, unsightly scarring, chronic pain, recurrence, regional numbness and damage to surrounding structures both recognized and unrecognized at time of surgery. He told me that he understood. He told me considered his options and he added that he understood and accepted the risks that he described as inherent dissection operation lastly he indicated that despite the risks he still wished to proceed with surgery. Coding Level of Care Code New Pt Level 3 (90617) Diagnoses Lipoma D17.9 Time Spent (min) 30 Comment Patient visit record review and coordination of care time
--- OUTSIDE RECORDS SUMMARY | 2025-10-24 18:32 | XMS_ITS | Encounter Summary ---
Author Organization [employer] Address [address] [facility] 7t [place] [address] Care Team Providers Care Tank Car Reconditioner Name Role Phone Kriss Woodward MD Primary Care Provider [phone] Maranda Oakes MD Primary Care Provider Maranda Oakes MD Primary Care Provider Richard Enrique Unavailable Unavailable Reason for Visit * Reason Onset Date Comments Appointment 03/11/2023 Encounter Details Date Type Department Care Team (Late st Contact Info) Description 03/11/2023 Telephone [facility] ADULT DENTAL [address] [place], [place] [phone] Richa Velasquez, DDS [address] [place], [place] [phone] Appointment Social History Tobacco Use Types Packs/Day [...] appt. He has been on waitlist in [facility] since 12/2021. He would like to be scheduled DR documented in this encounter Plan of Treatment Upcoming Encounters Date Type Department Care Team (Late st Contact Info) Description 10/30/2025 4:00 PM EST Office Visit [facility] MED & PEDS [address] [place] [address] Maranda Oakes MD [address] [place] [address] documented as of this encounter Visit Diagnoses Not on filedocumented in this encounter Additional Health Concerns Assessment Noted Time PHQ-9 Depression Total Score: 2 11/25/20 3:00 PM EST documented as of this encounter Care Teams Tank Car Reconditioner Relationship Specialty Start Date End Date Kriss Woodward MD [address] [place] [address] PCP - General Family Medicine 02/06/23 06/07/24 Maranda Oakes MD [address] [place] [address] PCP - General Internal Medicine 06/08/24 07/04/24 Maranda Oakes MD [address] [place] [address] PCP - General Internal Medicine 07/05/24 Richard Enrique [address] [place] [address] Dental Aircraft Machinist Helper 01/25/25 documented as of this encounter
--- OUTSIDE RECORDS SUMMARY | 2025-10-24 18:32 | XMS_ITS | Clinical Summary ---
Author Organization [facility] Address [address] [place] [address] Phone Care Team Providers Care Nightman Name Role Phone Maranda Oakes MD Primary Care Pr ovider Allergies No known active allergies Medications sodium chloride 0.9 % nebulizer solution Take 3 mL by nebulization as needed. Use as directed with ocular prosthetic device Dispense 1 box 100 count for 1 month supply 300 mL 12 9 Active LORazepam (ATIVAN) 1 MG tablet Take 1 tablet (1 mg total) by mouth once for 1 dose. Take 1 tablet prior 30 minutes to procedure 1 tablet 2 Active moxifloxacin (VIGAMOX) 0.5 % ophthalmic solution Place 1 drop into each eye 4 (four) times a day. To start 3 days prior to procedure. 3 mL 3 2 Active prednisoLONE acetate (PRED FORTE) 1 % ophthalmic suspension Place 1 drop into each eye 4 (four) times a day. To start following procedure 5 mL 3 2 Active HYDROcodone-jens taminophen (NORCO) 5-325 mg per tablet Take 1 tablet by mouth every 6 (six) hours as needed for pain (specific location in comments). Partial fill ok 10 tablet 2 Active gatifloxacin (ZYMAXID) 0.5 % Drop Place 1 drop into each eye 4 (four) times a day. To start 3 days prior to procedure 2.5 mL 1 2 Active albuterol (ACCUNEB) 1.25 mg/3 mL nebulizer solution Take 1 Ampule by nebulization every 6 hours as needed. Active fluticasone furoate (ARNUITY ELLIPTA) 100 mcg/actuation DsDv Inhale 1 puff into the lungs. 5 02/01/20 26 Active ipratropium-alb uteroL (DUONEB) 0.5-3 mg (2.5 mg base)/3 mL nebulizer solution 3 mL. 4 Active olmesartan (BENICAR) 20 mg tablet Take 20 mg by mouth. 5 Active albuterol 90 mcg/actuation inhalerIndicati ons:Pulmonary sarcoidosis Inhale 2 puffs into the lungs every 6 (six) hours as needed for wheezing or shortness of breath/dyspnea. 18 g 3 5 Active Active Problems Problem Noted Date Diagnosed Date Keratoconus 02/16/2025 Asthma 01/26/2025 Dilated cardiomyopathy 10/19/2024 Crohn's disease of small intestine with rectal b leeding 02/06/2023 Encounters Date Type Department Care Team Description 09/26/2025 3:50 PM EDT Office Visit [facility] [address] [facility] [address] [place] [address] Anuja Pulido MD Keratoconus of both eyes (Primary Dx) 09/21/2025 11:00 AM EDT Office Visit [facility] 1 [place] [address] Lesly Valentin, GIANFRANCO Keratoconus of both eyes (Primary Dx); Hypermetropia of left eye; Irregular astigmatism of both eyes from Last 3 Months Family History Medical History Relation Comments Diabetes Mother Hypertension Mother Relation Status Comments Mother Social History Tobacco Use Types Packs/Day Years Used Date Smoking Tobacco: Never Smokeless Tobacco: Never Tobacco Cessation:Counseling Given: Not Answered Alcohol Use Standard Drinks/Week Comments No 0 [...] Orientation Straight 08/09/2021 12 :56 PM EDT Last Filed Vital Signs Vital Sign Reading Time Taken Comments Blood Pressure 133/88 02/16/2025 11:01 AM EDT Pulse 97 02/16/2025 11:01 AM EDT Temperature - - Respiratory Rate - - Oxygen Saturation 96% 02/16/2025 11: 01 AM EDT Inhaled Oxygen Concentration - - Weight 149.9 kg (330 lb 6.4 oz) 025 11:01 AM EDT Height - - Body Mass Index - - Plan of Treatment Upcoming Encounters Date Type Department Care Team (Late st Contact Info) Description 11/02/2025 3:00 PM EST Office Visit [facility] 1 [place] [address] Lesly Valentin, OD [address] [place] [id number] [email or web address] 12/05/2025 3:40 PM EST Office Visit [facility] [address] [facility] [address] [place] [address] Anuja Pulido MD [address] [facility], [address] [place] [address] [email or web address] Health Maintenance Due Date Last Done Comments DEPRESSION SCREENING 2010 HEPATITIS C SCREENING 2016 HIV ONE-TIME SCREENING (18-65 YEARS) 2016 PNEUMOCOCCAL VACCINES (0-49 years) (1 of 2 - PCV) 2017 HEPATITIS A VACCINES (2 of 2 - 2-dose series) 05/11/2018 11/10/2017 INFLUENZA VACCINE (#1) 2025 7, 08/08/2016, 08/28/2015, Additional history exists COVID-19 VACCINE ( season) 2025 CREATININE LEVEL 02/16/2026 02/16/2025 POTASSIUM LEVEL 02/16/2026 02/16/2025 Adult Td,Tdap Booster 11/11/2027 11/11/2017, 013 HIB VACCINES Completed 02/26/2000, 05/31, 04/15/1999, Additional history exists HPV VACCINES Completed 07/24/2014, 10/30, 07/15/2013 MENINGOCOCCAL VACCINES (ACWY) Completed 08/08/2016, 08/13/2012 SMOKING STATUS SCREENING (Once After 26 Yrs) Completed 09/26/2025 MENINGOCOCCAL VACCINES (B) Aged Out N o longer eligible based on patient's age to complete this topic Medical Devices Not on file Procedures Procedure Name Priority Date/Time Associated Diagnosis Comments CORNEAL TOPOGRAPHY - OU - BOTH EYES Routine 09/26/2025 5:19 PM EDT Keratoconus of both eyes COMPREHENSIVE METABOLIC PANEL (CMP) Routine 02/16/2025 1:10 PM EDT Pulmonary sarcoidosis from Last 3 Months or Most Recently Relevant to Health Maintenance Results * Corneal Topography - OU - Both Eyes (09/26/2025 5:19 PM EDT) Anatomical Region Laterality Modality Head Optical Coherenc e Tomography Other Narrative 09/26/2025 5:19 PM EDT Notes increased steepning OD OS stable us Anuja [place] MD OPHTHALMOLOGY [place] [facility] Final Result * Comprehensive metabolic panel (02/16/2025 1:10 PM EDT) SODIUM 140 135 - 145 mmol/L [facility] POTASSIUM 4.3 3.4 - 5.0 mmol/L [facility] CHLORIDE 104 98 - 108 mmol/L [facility] CO2 25 23 - 32 mmol/L [facility] BUN 9 8 - 25 mg/dL [facility] CREATININE 0.91 0.60 - 1.30 mg/dL [facility] GLUCOSE 101 70 - 110 mg/dL [facility] ALBUMIN 4.6 3.3 - 5.0 g/dL [facility] TOTAL PROTEIN 7.8 6.0 - 8.3 g/dL [facility] CALCIUM 9.7 8.5 - 10.5 mg/dL [facility] ALKALINE PHOSPHATASE 99 45 - 115 U/L [facility] TOTAL BILIRUBIN 0.6 0.0 - 1.0 mg/dL [facility] AST 27 10 - 40 U/L [facility] ALT 23 10 - 55 U/L [facility] GLOBULIN 3.2 1.9 - 4.1 g/dL [facility] EGFR 119 >59 mL/min/1.7 3m2 [facility] Comment:Estimated glomerular filtration rate calculated using the CKD-EPI refit equation. ANION GAP 11 3 - 17 mmol/L [facility] Blood 02/16/2025 1:10 PM EDT 02/16/2025 1:14 PM EDT us Veronique Paredes MD LAB BLOOD BKR ORDERABLES Fin al Result [facility] [address] [place] [phone] from Last 3 Months or Most Recently Relevant to Health Maintenance Insurance [facility] C3 ACO [facility] C3 ACO [facility] C3 ACO [address] [facility] [facility] C3 ACO [address] [facility] [facility] C3 ACO [facility] C3 ACO [facility] C3 ACO [facility] C3 ACO [facility] C3 ACO Care Teams Nightman Relationship Specialty Start Date End Date Maranda Oakes MD PCP - General Internal Medicine 08/17/24 Additional Source Comments The information contained in this document represents components of the legal health record. It is not the complete legal health record.[facility]
--- OUTSIDE RECORDS SUMMARY | 2025-10-24 18:32 | XMS_ITS | Encounter Summary ---
Author Organization [employer] Address [address] [place] [address] Care Team Providers Care Management Assistant Name Role Phone Maranda Oakes MD Primary Care Provider [phone] Richard Enrique Unavailable Unavailable Encounter Details Date Type Department Care Team ([facility] st Contact Info) Description 10/17/2025 Orders Only [facility] [address] [place] [address] Provider, MD Srinath Social History Tobacco Use Types Packs/Day Years Used Date Smoking Tobacco: Never Passive Smoke Exposure: Never Smokeless Tobacco: Never Alcohol Use Standard Drinks/Week Comments Never 0 (1 standard drink = 0.6 oz pur e alcohol) Depression Answer Date Recorded Patient Health Questionnaire-9 Score 0 08/07/2025 Patient Health Questionnaire-9 Score 0 08/07/2025 Last PHQ-9: Questionnaire Data Not on file 0 08/07/2025 Housing Stability Answer Date Recorded What is your housing situation today? I have silvia chinchilla 08/07/[address] you li ve. Do you have problems with any of the following? None of the above 08/07/2025 Food Insecurity Answer Date Recorded Within the past 12 months, y ou worried that your food would run out before you got money to buy more: Never True 08/07/2025 Within the past 12 months,th e food you bought just didn't last and you didn't have enough money to get more: Never True 06/2025 Transportation Answer Date Recorded In the past 12 months, has l ack of transportation kept you from medical appts, meetings, work or from getting things needed for daily living? No 08/07/2025 Utilities Answer Date Recorded In the past 12 months, has t he electric, gas, oil or water company threatened to shut off services in your home? No 08/07/2025 Depression Answer Date Recorded Patient Health Questionnaire-2 Score 0 08/07/2025 Internet Access Answer Date Recorded Internet Access Q1 Yes 08/07/2025 Internet Access Q2 Not on file 08/07/2025 Sex and Gender Information Value Date Recorded [...] 4:00 PM EST Office Visit [facility] [address] [place] [address] Maranda Oakes MD [address] [place] [address] documented as of this encounter Procedures Procedure Name Priority Date/Time Associated Diagnosis Comments ECG 12-LEAD Routine 10/13/2025 documented in this encounter Results * ECG 12 lead (10/13/2025) Historical Provider ECG ORDERABLES Final Res ult documented in this encounter Visit Diagnoses Not on filedocumented in this encounter Additional Health Concerns Assessment Noted Time PHQ-9 Depression Total Score: 0 08/07/20 25 3:22 PM EDT documented as of this encounter Care Teams Management Assistant Relationship Specialty Start Date End Date Maranda Oakes MD [address] [place] [address] PCP - General Internal Medicine 07/05/24 Richard Enrique [address] [facility] [place] [address] Dental Splicer Helper 01/25/25 documented as of this encounter
--- OUTSIDE RECORDS SUMMARY | 2025-10-24 18:32 | XMS_ITS | Encounter Summary ---
Author Organization [employer] Address [address] [place] [address] Care Team Providers Care Rolled Seat Trimmer Name Role Phone Maranda Oakes MD Primary Care Provider [phone] Richard Enrique Unavailable Unavailable Encounter Details Date Type Department Care Team (Late st Contact Info) Description 08/15/2024 Orders Only [facility] PEDS [address] [place] [address] Provider, MD Srinath Social History Tobacco Use [...] Description 10/30/2025 4:00 PM EST Office Visit [facility] PEDS [address] [place] [address] Maranda Oakes MD [address] [place] [address] documented as of this encounter Procedures Procedure Name Priority Date/Time Associated Diagnosis Comments XR CHEST 1 VIEW Routine 08/12/2024 4:13 PM EDT XR CHEST PORTABLE Routine 08/12/2024 3:42 PM EDT documented in this encounter Results * XR Chest 1 View (08/12/2024 4:13 PM EDT) Anatomical Region Laterality Modality Chest Radiographic Sarahi ging us Historical Provider MD VALDOVINOS XR PROCEDURES Final R esult * XR Chest Portable (08/12/2024 3:42 PM EDT) Anatomical Region Laterality Modality Radiographic Sarahi ging us Historical Provider MD VALDOVINOS XR PROCEDURES Final R esult documented in this encounter Visit Diagnoses Not on filedocumented in this encounter Additional Health Concerns Assessment Noted Time PHQ-9 Depression Total Score: 2 11/25/20 22 3:00 PM EST documented as of this encounter Care Teams Rolled Seat Trimmer Relationship Specialty Start Date End Date Maranda Oakes MD [address] [place] [address] PCP - General Internal Medicine 07/05/24 Richard Enrique [address] [place] [address] Dental Budget Consultant 01/25/25 documented as of this encounter
--- OUTSIDE RECORDS SUMMARY | 2025-10-24 18:32 | XMS_ITS | Encounter Summary ---
Author Organization [employer] Address [address] [place] [address] Care Team Providers Care Correspondence Clerk Name Role Phone Maranda Oakes MD Primary Care Provider [phone] Reason for Visit * Reason Onset Date Comments Medical Records 10/19/2025 Encounter Details Date Type Department Care Team (Late st Contact Info) Description 10/19/2025 Telephone [facility] [address] [place] [address] Provider, Not In System Social History Tobacco Use Types Packs/Day Years [...] on file Sexual Orientation Not on file documented as of this encounter Progress Notes * Libby Mckeon - 10/19/2025 10:54 AM EST Faxed [facility] [employer] On 10/18/2025 to process complete records. documented in this encounter Plan of Treatment Upcoming Encounters Date Type Department Care Team (Late st Contact Info) Description 11/17/2025 2:30 PM EST Office Visit Pulmonology - [facility] [address] [place] [address] Rosales Burnham MD [address] [place] [address] 04/12/2026 10:00 AM EDT Ancillary Procedure [facility] [address] [place] [id number] documented as of this encounter Visit Diagnoses Not on filedocumented in this encounter Care Teams Correspondence Clerk Relationship Specialty Start Date End Date Maranda Oakes MD [address] [place] [address] PCP - General 07/11/24 documented as of this encounter
--- OUTSIDE RECORDS SUMMARY | 2025-10-24 18:32 | XMS_ITS | Encounter Summary ---
Author Organization [employer] Address [address] [facility] [address] [place] [address] Care Team Providers Care Women Specialist Name Role Phone Kriss Woodward MD Primary Care Provider [phone] Maranda Oakes MD Primary Care Provider [phone] Maranda Oakes MD Primary Care Provider Richard Enrique Unavailable Unavailable Reason for Visit * Reason Onset Date Comments Nurse Triage 02/01/2024 Encounter Details Date Type Department Care Team ([facility] st Contact Info) Description 02/01/2024 Telephone [facility] & [facility]EDS [address] [place], [place] [phone] Kriss Woodward MD [address] [place] [address] Nurse Triage Social History Tobacco Use Types [...] this outcome Please contact pt spouse at [phone] documented in this encounter Plan of Treatment Upcoming Encounters Date Type Department Care Team ([facility] st Contact Info) Description 10/30/2025 4:00 PM EST Office Visit [facility] PED[facility] [address] [place] [address] Maranda Oakes MD [address] [place] [address] documented as of this encounter Visit Diagnoses Not on filedocumented in this encounter Additional Health Concerns Assessment Noted Time PHQ-9 Depression Total Score: 2 11/25/20 22 3:00 PM EST documented as of this encounter Care Teams Women Specialist Relationship Specialty Start Date End Date Kriss Woodward MD [address] [place] [address] PCP - General Family Medicine 02/06/23 06/07/24 Maranda Oakes MD [address] [place] [address] PCP - General Internal Medicine 06/08/24 07/04/24 Maranda Oakes MD [address] [place] [address] PCP - General Internal Medicine 07/05/24 Richard Enrique [address] [place] [address] Dental Recreational Assistant 01/25/25 documented as of this encounter
--- OUTSIDE RECORDS SUMMARY | 2025-10-24 18:32 | XMS_ITS | Encounter Summary ---
Author Organization [facility] Address [address] [place] [address] [place] [address] Phone Care Team Providers Care Manager Product Management Name Role Phone Nader Duran MD Primary Care Provider [phone] Maranda Oakes MD Primary Care Pr ovider Encounter Details Date Type Department Care Team (Late st Contact Info) Description 09/27/2020 Telephone [facility] [place] [address] [place] [address] Latoya Bhatia, OD [address] [place] [address] [email or web address] Social History Tobacco Use Types Packs/Day Years [...] PM EDT documented as of this encounter Plan of Treatment Upcoming Encounters Date Type Department Care Team (Late st Contact Info) Description 11/02/2025 3:00 PM EST Office Visit [facility] [address] [address] Lesly Valentin, OD [address] [place] [address] [email or web address] 12/05/2025 3:40 PM EST Office Visit [facility] [address] [facility] [address] [place] [address] Anuja Pulido MD [address] [facility], [address] [place] [address] [email or web address] documented as of this encounter Visit Diagnoses Not on filedocumented in this encounter Care Teams Manager Product Management Relationship Specialty Start Date End Date Nader Duran MD [address] [place] [address] PCP - General Pediatrics 12/07/17 08/16/24 Maranda Oakes MD [address] [place] [address] PCP - General Internal Medicine 08/17/24 documented as of this encounter Additional Source Comments The information contained in this document represents components of the legal health record. It is not the complete legal health record.[facility]
--- OUTSIDE RECORDS SUMMARY | 2025-10-24 18:32 | XMS_ITS | Clinical Summary ---
Author Organization 175 [facility] Address [address] [place] [address] Phone Care Team Providers Care Night Clerk Auditor Name Role Phone Maranda Oakes MD Primary Care Provider [phone] Allergies Active Allergy Reactions Criticality Noted Date Comments Sacubitril-Valsartan Dizziness High 12/09/2024 Dizzines,left arm numbness. Medications albuterol 1.25 mg/3 mL nebulizer solution Take 1 Ampule by nebulization every 6 hours as needed. Active fluticasone furoate (Arnuity Ellipta) 100 mcg/actuation blister with device inhaler Inhale 1 puff by mouth 1 (one) time each day. 1 each 11 5 026 Active Ventolin HFA 90 mcg/actuation inhaler Inhale 2 puffs by mouth every 4 (four) hours if needed for wheezing. 5 Active hydroCHLOROthi azide 12.5 mg tablet Take 1 tablet (12.5 mg total) by mouth daily. 5 026 Active ipratropium-al buteroL (DUONEB) 0.5-2.5 mg/3 mL nebulizer solution Take 3 mL by nebulization. 5 Active EPINEPHrine (EPIPEN) 0.3 mg/0.3 mL injection Inject 0.3 mL (0.3 mg total) under the skin 1 (one) time. 5 Active Pentasa 500 mg CR capsule Take 2 capsules (1,000 mg total) by mouth 2 (two) times a day. 5 Active olmesartan (BENICAR) 20 mg tablet Take 1 tablet (20 mg total) by mouth 1 (one) time each day. 025 Discontin ued(Alter jeana therapy) esomeprazole (NexIUM) [address] capsule Take 1 capsule (40 mg total) by mouth 1 (one) time each day. 5 025 Discontin ued(Thera py completed ) Active Problems Problem Noted Date Diagnosed Date [...] CMS/HCC V28 ) 10/19/2024 Assessment & Plan (10/13/2025 12:56 PM EST): Blood pressures not could allow for any guideline directed therapy to be started I attempted Entresto in the past and that failed there is really no room for us to add additional therapy at this time will continue to follow by echocardiography in the future patient has no evidence of volume overload I have asked him to start exercising and method to try to lose some weight granted cardiac is not can work but patient can lift. No change in therapy at this time no evidence of volume overload follow-up in 6 months Orders: ECG 12 lead Transthoracic echocardiogram (TTE) complete with PRN contrast, bubble, strain, and 3D order panel; Future Assessment & Plan (10/19/2024 1:54 PM EST): [...] Encounters Date Type Department Care Team Description 10/19/2025 Telephone [facility] [address] [place] [address] Provider, Not In System 10/13/2025 3:15 PM EST Ancillary Procedure Pulmonology - [place] [address] [phone] Sarcoidosis 10/13/2025 8:20 AM EST Office Visit [facility] [address] [facility] [address] [place] [address] Birgit Gloria MD Dilated cardiomyopathy (CMS/HCC V24, CMS/HCC V28) (Primary Dx) 10/06/2025 4:15 PM EST - 10/06/2025 11:59 PM EST Hospital Encounter [facility] Xray [address] [place] [phone] Sarcoidosis Discharge Disposition: Home or Self Care 10/06/2025 3:45 PM EST Office Visit Pulmonology [address] [phone] Rosales Burnham MD Sarcoidosis (Primary Dx) 10/06/2025 [facility]phone [facility] [address] [phone] Rosales Burnham MD from Last 3 Months Medical History Medical [...] Sign Reading Time Taken Comments Blood Pressure 102/70 10/13/2025 8:19 AM EST Pulse 113 10/13/2025 8:19 AM EST Temperature 36 C (96.8 F) 10/06/2025 3:34 PM EST Respiratory Rate 16 10/06/2025 3:34 PM EST Oxygen Saturation 97% 10/13/2025 8:19 AM EST Inhaled Oxygen Concentration - - Weight 147 kg (324 lb) 10/13/2025 8:19 AM EST Height 185.4 cm (6' 1 ) 10/13/2025 8:19 AM EST Body Mass Index 42.75 10/13/2025 8:19 AM EST Plan of Treatment Upcoming Encounters Date Type Department Care Team (Late st Contact Info) Description 11/17/2025 2:30 PM EST Office Visit Pulmonology - [place] 175 [facility] [address] [place] [address] Rosales Burnham MD [address] [place] [phone] 04/12/2026 10:00 AM EDT Ancillary Procedure [facility] [address] [facility] [address] [place] [phone] Health Maintenance Due Date Last Done Comments Pneumococcal Vaccine: Pediatrics (0 to 5 Years) and At-Risk Patients (6 to 49 Years) (1 of 2 - PCV) 2017 Hepatitis A Vaccines (2 of 2 - 2-dose series) 05/11/2018 11/10/2017 HIV Screening 10/29/2022 Hepatitis C Screening 10/29/2022 Social Influencers of Health Screening 10/29/2022 Depression Screening 11/30/2024 COVID-19 Vaccine ( season) 2025 Influenza Vaccine (#1) 2025 7, 08/08/2016, 08/28/2015, Additional history exists Hypertension/CHF/CAD Annual BMP Blood Test 02/16/2026 02/16/2025, 01/06/2025, 09/13/2024, Additional history exists DTaP,Tdap,and Td Vaccines (8 - Td or Tdap) 11/11/2027 11/11/2017, 07/15/2013, 12/13/2002, Additional history exists Cholesterol Screening (Lipid Panel) 03/19/2029 03/19/2024 RSV Immunization Adult Patients (1 - 1-dose 75+ series) 2073 Hepatitis [...] Associated Diagnosis Comments PULMONARY FUNCTION TESTING Routine 10/13/2025 3:52 PM EST Sarcoidosis ECG 12-LEAD Routine 10/13/2025 8:37 AM EST Dilated cardiomyopathy (CMS/HCC V24, CMS/HCC V28) XR CHEST 2 VIEWS Routine 10/06/2025 4:21 PM EST Sarcoidosis ANNUAL BMP BLOOD TEST Routine 09/13/2024 from Last 3 Months or Most Recently Relevant to Health Maintenance Results * Pulmonary function testing: Carbon Monoxide Diffusing Capacity, Spirometry with Bronchodilator, Vital Capacity Test, Flow Volume Loop (10/13/2025 3:52 PM EST) Impressions Naomi Reardon MD - 10/13/2025 3:52 PM EST FEV1/FVC 90% FEV1 3.33 at 69% FVC 63%. No bronchodilator respond. TLC 76% RV 114%. DLCO 76% (93%). Compare to 12/30/24, there is slight lost in function. No obstruction. Mild restriction and no decrease in diffusion. Findings consistent with mild restrictive lung disease. us Rosales Burnham MD PFT ORDERABLES Final Result * ECG 12 lead (10/13/2025 8:37 AM EST) Ventricular Rate ECG 89 BPM GEMUSE Atrial Rate 89 BPM GEMUSE P-R Interval 158 ms GEMUSE QRS Duration 88 ms GEMUSE Q-T Interval 386 ms GEMUSE QTc 469 ms GEMUSE P Wave [place] 59 degrees GEMUSE R [place] 36 degrees GEMUSE T [place] 28 degrees GEMUSE ECG Interpretation Normal sinus rhythm Normal ECG When compared with ECG of 19-OCT-2024 13:14, Nonspecific T wave abnormality has replaced inverted T waves in Inferior leads Nonspecific T wave abnormality no longer evident in Anterolateral leads Confirmed by Lizbet GLORIA, BIRGIT ([id number]) on 10/13/2025 12:36:14 PM GEMUSE 10/13/2025 8:37 AM EST 10/13/2025 12:36 PM EST us Birgit Gloria MD ECG ORDERABLES Final Result GEMUSE * XR Chest 2 Views (10/06/2025 4:21 PM EST) Anatomical Region Laterality Modality Body Radiographic Sarahi ging 10/09/2025 9:25 AM EST Impressions 10/09/2025 9:27 AM EST Chronic elevation of the right hemidiaphragm. Discoid atelectasis is present at the right lung base, new since 02/08/2025. The lungs are otherwise clear. Code 64311 -------- FINAL REPORT -------- Dictated By: Ivan Costa Dictated Date: 10/09/2025 09:25 ET Assigned Physician: Ivan Costa Reviewed and Electronically Signed By: Ivan Csota Signed Date: 10/09/2025 09:27 ET Workstation ID: [id number] Transcribed By: Self Edit Transcribed Date: 10/09/2025 09:25 ET Narrative 10/09/2025 9:27 AM EST HISTORY: The patient is a 24-year-old male with sarcoidosis, presenting with dyspnea. Findings: PA and lateral radiographs of the chest demonstrate normal appearance of the bony structures. The cardiac and mediastinal contours are within normal limits and no lymphadenopathy is seen radiographically. There is mild discoid atelectasis near the right lung base, a new finding since the prior study performed 02/08/2025. The lungs are otherwise clear and the costophrenic angles are sharp. Again seen is elevation of the right hemidiaphragm as also demonstrated on prior studies and back to 06/20/2024. Procedure Note Ivan Costa MD - 10/09/2025 HISTORY: The patient is a 24-year-old male with sarcoidosis, presentingwith dyspnea. Findings: PA and lateral radiographs of the chest demonstrate normalappearance of the bony structures. The cardiac and mediastinal contoursare within normal limits and no lymphadenopathy is seen radiographically.There is mild discoid atelectasis near the right lung base, a new findingsince the prior study performed 02/08/2025. The lungs are otherwise clearand the costophrenic angles are sharp. Again seen is elevation of theright hemidiaphragm as also demonstrated on prior studies and back to06/20/2024. IMPRESSION: Chronic elevation of the right hemidiaphragm. Discoid atelectasis ispresent at the right lung base, new since 02/08/2025. The lungs areotherwise clear. Code 70679 -------- FINAL REPORT -------- Dictated By: Ivan Costa Dictated Date: 10/09/2025 09:25 ET Assigned Physician: Ivan Costa Reviewed and Electronically Signed By: Ivan Costa Signed Date: 10/09/2025 09:27 ET Workstation ID: [id number] Transcribed By: Self Edit Transcribed Date: 10/09/2025 09:25 ET Rosales Burnham MD IMG XR PROCEDURES Final Result * Annual BMP Blood Test (09/13/2024) Annual BMP Blood Test Abstracted Historical Provider HEALTH MAINTENANCE Final Result from Last 3 Months or Most Recently Relevant to Health Maintenance Insurance MEDICAID - [place] Care Teams Night Clerk Auditor Relationship Specialty Start Date End Date Maranda Oakes MD [address] [place] [address] PCP - General 07/11/24
--- OUTSIDE RECORDS SUMMARY | 2025-10-24 18:32 | XMS_ITS | Encounter Summary ---
Author Organization [employer] Address [address] [facility] [address] [place] [address] Care Team Providers Care Electro Optics Engineer Name Role Phone Maranda Oakes MD Primary Care Provider [phone] Richard Enrique Unavailable Unavailable Encounter Details Date Type Department Care Team ([facility] st Contact Info) Description 12/09/2024 Orders Only [facility] [address] [place] [address] Provider, MD Srinath Social History Tobacco Use [...] Description 10/30/2025 4:00 PM EST Office Visit [facility] [address] [place] [address] Maranda Oakes MD [address] [place] [address] documented as of this encounter Procedures Procedure [...] documented as of this encounter Care Teams Electro Optics Engineer Relationship Specialty Start Date End Date Maranda Oakes MD 505 [place] [address] PCP - General Internal Medicine 07/05/24 Richard Enrique 505 [facility] [place] [address] Dental Blade Changer 01/25/25 documented as of this encounter
--- OUTSIDE RECORDS SUMMARY | 2025-10-24 18:32 | XMS_ITS | Clinical Summary ---
Author Organization [employer] Address [address] [facility] [address] [place] [address] Care Team Providers Care Gum Rolling Machine Tender Name Role Phone Maranda Oakes MD Primary Care Provider [phone]- [phone] Richard Enrique Unavailable Unavailable Allergies Active Allergy Reactions Criticality Noted Date Comments Amlodipine Swelling 09/12/2025 Bee Venom Anaphylaxis High 01/26/2025 Sacubitril-Valsartan Dizziness High 12/09/2024 Dizzines,left arm numbness. Medications Blood Pressure kitIndications:E levated blood pressure reading 1 kit in the morning. 1 kit 2 Active pantoprazole (ProtoNix) 40 MG EC tablet TAKE 1 TABLET BY MOUTH DAILY 1/2 HOUR BEFORE BREAKFAST 3 Active loratadine (Claritin) 10 MG tabletIndication s:Irritant contact dermatitis due to other chemical products TAKE 1 TABLET BY MOUTH EVERY DAY IN THE MORNING 90 tablet 1 4 Active Mometasone Furoate (Asmanex, 120 Metered Doses,) 220 MCG/ACT aerosol powderIndication s:Mild persistent asthma, unspecified whether complicated Inhale 220 mcg Once per day. 1 each 3 4 Active EPINEPHrine (Epipen) 0.3 MG/0.3ML injection syringeIndicatio ns:Anaphylactic reaction to bee sting, undetermined intent, sequela Inject 0.3 mL (0.3 mg) as directed 1 (one) time for 1 dose. use as directed for allergic reaction and then call 911 1 each 5 Active albuterol 108 (90 Base) MCG/ACT inhalerIndicatio ns:Mild persistent asthma, unspecified whether complicated Inhale 2 puffs every 4 (four) hours if needed for wheezing. 18 g 5 5 Active ipratropium-albu terol (Duo-Neb) 0.5-2.5 mg/3 mL nebulizer solution Take 3 mL by nebulization Every 4-6 hours as needed for wheezing or shortness of breath. 180 mL 11 Active hydroCHLOROthiaz latrice 12.5 MG tabletIndication s:Primary hypertension Take 1 tablet (12.5 mg) by mouth Once per day. 30 tablet 11 5 Active fluticasone furoate (Arnuity Ellipta) 100 MCG/ACT inhalerIndicatio ns:Mild persistent asthma, unspecified whether complicated Inhale 1 puff Once per day. Rinse mouth with water after use to reduce aftertaste and incidence of candidiasis. Do not swallow. 1 each 11 5 Active Active Problems Problem Noted Date Diagnosed Date Sarcoidosis 08/07/2025 Dilated cardiomyopathy (CMS/HCC) 08/07/2025 Asthma 01/26/2025 Sinus tachycardia 10/19/2024 Keratoconus of both eyes 08/15/2024 Primary hypertension 02/22/2024 Assessment & Plan (09/14/2025 8:00 AM EDT): Not at goal (148/100). Goal is <130/80. Did not start amlodipine due to previous reaction. Will start hydrochlorothiazide. Follow up in 4 weeks. Orders: hydroCHLOROthiazide 12.5 MG tablet; Take 1 tablet (12.5 mg) by mouth Once per day. Assessment & Plan (02/22/2024 5:29 PM EDT): [...] rectal b leeding 02/06/2023 Assessment & Plan (09/14/2025 8:00 AM EDT): Orders: CBC auto differential; Future C-reactive Protein; Future Sed Rate by Modified Westergren; Future Assessment & Plan (02/18/2023 10:17 PM EDT): Recently diagnosed by GI specialist and started on medication. Doing better and no further rectal bleeding. Chronic diarrhea 11/25/2022 Assessment & Plan (11/25/2022 4:17 PM EST): Reports months hx of bloody diarrhea with association with nausea and vomiting. No records available for review at this moment from [facility], reports had CT scan of the abdomen, will refer to GI and will send testing. 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 Rinse mouth with water after use to reduce aftertaste and incidence of candidiasis. Do not swallow. Assessment & Plan (11/25/2022 4:16 PM EST): Refill flovent and albuterol, will need ACT questionnaire administered next visit Morbid obesity (CMS/HCC) 11/25/2022 Assessment & Plan (02/22/2024 5:32 PM [...] Encounters Date Type Department Care Team Description 10/17/2025 Orders Only [facility] [address] [place] [address] Srinath Hwang MD 10/12/2025 Telephone [facility] [address] [place] [address] Maranda Oakes MD no show 10/09/2025 Orders Only [facility] [address] [place] [address] Srinath Hwang MD 09/20/2025 Orders Only [facility] [address] [place] [address] Whitney Coronado MD Blurred vision (Primary Dx) 09/20/2025 Telephone [facility] [address] [place] [address] Maranda Oakes MD 09/12/2025 4:00 PM EDT Office Visit [facility] [address] [place] [address] Maranda Oakes MD Crohn's disease of small intestine with rectal bleeding (HCC) (Primary Dx); Primary hypertension; Mild persistent asthma, unspecified whether complicated 09/12/2025 Travel 08/07/2025 2:45 PM EDT Office Visit [facility] [address] [place] [address] Maranda Oakes MD Annual physical exam (Primary Dx); Anaphylactic reaction to bee sting, undetermined intent, sequela; Mild persistent asthma, unspecified whether complicated; Dietary counseling; Exercise counseling; Class 3 severe obesity due to excess calories with serious comorbidity and body mass index (BMI) of 40.0 to 44.9 in adult; Primary hypertension; Lipoma of torso; Sarcoidosis; Dilated cardiomyopathy (CMS/HCC) 08/07/2025 Travel 08/04/2025 Telephone [facility] [address] [place] [address] Maranda aOkes MD chart prep from Last 3 Months Immunizations Immunization Administration Dates Next Due DTaP 12/13/2002, 0,06/18/1999,04/15,02/13/1999 HPV, Quadrivalent 07/24/2014,11/15/2013,07/15/20 13 Hep A, ped/adol, 2 dose 11/10/2017 Hep B, Unspecified 06/18/1999,04/15/1999, 999 HiB, unspecified 02/26/2000, 9,04/15/1999,02/13 IPV 12/13/2002, 9,04/15/1999,02/13 Influenza Whole 08/16/2009 Influenza injectable quadriv alent preservative free 08/08/2016 Influenza, IIV3, injectable 11/10/2017,0 08/08/2016,08/28/2015,08/08,07/28/2012,11/18/2007 MMR 12/13/2002,1999 Meningococcal ACWY, unspecified 08/08/2016,08/13 Meningococcal MCV4P [id number]-135 08/08/2016 Tdap 11/11/2017,07/15/2013 Varicella 07/15/2013,1999 Family History Medical History Relation Name Comments Sarcoidosis Mother Relation Name Status Comments Mother Social History Tobacco Use [...] Sign Reading Time Taken Comments Blood Pressure 148/100 09/12/2025 4:02 PM EDT Pulse 98 09/12/2025 4:02 PM EDT Temperature 36.8 C (98.3 F) 08/07/2025 2:44 PM EDT Respiratory Rate 20 09/12/2025 4:02 PM EDT Oxygen Saturation 96% 09/12/2025 4:02 PM EDT Inhaled Oxygen Concentration - - Weight 149 kg (329 lb) 09/12/2025 4:02 PM EDT Height 185.4 cm (6' 1 ) 09/12/2025 4:02 PM EDT Body Mass Index 43.41 09/12/2025 4:02 PM EDT Plan of Treatment Upcoming Encounters Date Type Department Care Team ([facility] st Contact Info) Description 10/30/2025 4:00 PM EST Office Visit [facility] [address] [place] [address] Maranda Oakes MD [address] [place] [address] Health Maintenance Due Date Last Done Comments Family Planning (PISQ) 2013 Dental Oral Exam 06/26/2025 12/26/2024 Dental Prophylaxis 06/26/2025 12/26/2024 COVID-19 Vaccine ( season) 2025 Influenza Vaccine (#1) 2025 7, 08/08/2016, 08/08/2016, Additional history exists Dental X-Ray: Bitewings 12/27/2025 12/26/2024 Tobacco Screening 01/26/2026 01/26/2025 Alcohol/Substance Use Screening 08/07/2026 08/07/2025 Depression Screening 08/07/2026 08/07/2025, 08/07/20 25 Disability Screening 08/07/2026 08/07/2025 Hepatitis A Vaccines (2 of 2 - 2-dose series) 08/07/2026 11/10/2017 Postponed from 05/11/2018 (Patient Refused) Pneumococcal Vaccine: Pediatrics (0 to 5 Years) and At-Risk Patients (6 to 49) Years (1 of 2 - PCV) 08/07/2026 Postponed from 2017 (Patient Refused) SDOH Screening 08/07/2026 08/07/2025 DTaP/Tdap/Td Vaccines (8 - Td or Tdap) [...] Completed 01/26/2023 Hepatitis C Screening Completed 01/26/2023 Meningococcal B Vaccine Aged Out No l onger eligible based on patient's age to complete this topic RSV under 20 months Aged Out No longe r eligible based on patient's age to complete this topic Rotavirus Vaccines Aged Out No longer eligible based on patient's age to complete this topic Procedures Procedure Name Priority Date/Time Associated Diagnosis Comments ECG 12-LEAD Routine 10/13/2025 XR CHEST 2 VIEWS Routine 10/06/2025 1:03 PM EST PROPHYLAXIS - ADULT Routine 12/26/2024 1 [...] Recently Relevant to Health Maintenance Results * ECG 12 lead (10/13/2025) us Historical Provider ECG ORDERABLES Final Res ult * XR Chest 2 Views (10/06/2025 1:03 PM EST) Anatomical Region Laterality Modality Chest Radiographic Sarahi ging us Historical Provider IMG XR PROCEDURES Final R esult * (ABNORMAL) Lipid Panel, Standard (03/19/2024 11:00 AM EDT) Triglycerides 69 <150 mg/dL [facility] Comment:Desirable Triglyceri de: less than 150 mg/dLBorderline High Triglyceride 150-199 mg/dLHigh Triglyceride: 200-499 mg/dLVery High Triglyceride: greater than or equal to 5OO mg/dL Cholesterol 158 <200 mg/dL [facility] Comment:Desirable Cholestero l: less than 200 mg/dLBorderline High Cholesterol: 200-239 mg/dLHigh Cholesterol: greater than 239 mg/dL LDL Cholesterol Calculated 111(H) <100 mg/dL [facility] Comment:Desirable LDL: less than 100 mg/dLNear Optimal/Above Optimal LDL: 110- 129 mg/dLBorderline High LDL: 130-159 mg/dLHigh LDL: 160-189 mg/dLVery High LDL: greater than or equal to 190 mg/dL HDL Cholesterol 34(L) >40 mg/dL [facility] Comment:Desirable HDL: great er than 40 mg/dL Note: This HDL assay may give artificially low results in patients with liver disease. Blood Venous blood specimen / Unknown 03/19/2024 11:00 AM EDT 03/19/2024 11:00 AM EDT Maranda Oakes MD LAB BLOOD ORDERABLES Final Result [facility] [address] [place] [address] [phone] * HIV Ab/Ag ([facility]) (01/26/2023 3:30 PM EST) HIV AB/AG Nonreactive Nonreactive [facility] Comment:HIV-1 p24 Ag and/or HIV-1/HIV-2 Ab not detected.A test result that is nonreactive does not exclude thepossibility of exposure to or infection with HIV-1 and/orHIV-2. Nonreactive results in this assay for individualswith prior exposure to HIV-1 and/or HIV-2 may be due toantigen and antibody levels that are below the limit ofdetection of this assay.The [employer] HIV Ag/Ab Combo assay result andsupplemental assay results should be interpreted inconjunction with the patient's clinical presentation,history and other laboratory results. If the results areinconsistent with clinical evidence, additional testing issuggested to confirm the result. 01/26/2023 3:30 PM EST 01/26/2023 3:30 PM EST [facility] External Provider LAB BLO OD ORDERABLES Final Result Performing Organization Address [facility] de Phone Number [facility] [address] [place] [address] [phone] * Hepatitis Panel, General (01/26/2023 3:30 PM EST) Hepatitis A IgM Nonreactive Nonreactive [facility] Comment:IgM antibodies to ESPARZA V not detected; does not exclude earlyacute or recovered HAV infection. ~Hepatitis B Surface Antibody NONREACTIVE Nonreactive [facility] Comment:Nonreactive: < 8.00 mIU/mL Hepatitis B Core Antibody Nonreactive Nonreactive [facility] Hepatitis C Antibody Nonreactive Nonreactive [facility] Comment:Antibodies to HCV no t detected; does not exclude early acuteHCV infection. Hepatitis B Surface Ag Negative Negative [facility] 01/26/2023 3:30 PM EST 01/26/2023 3:30 PM EST [facility] External Provider LAB BLO OD ORDERABLES Final Result Performing Organization Address [facility] de Phone Number [facility] [address] [place] [address] [phone] from Last 3 Months or Most Recently Relevant to Health Maintenance Insurance [facility] C3 DENTAL-[facility] MEDICAID STAND ADULT Care Teams Gum Rolling Machine Tender Relationship Specialty Start Date End Date Maranda Oakes MD [address] [place] [address] PCP - General Internal Medicine 07/05/24 Richard Enrique [address] [place] [address] Dental Sole Stapler Welt 01/25/25
--- OUTSIDE RECORDS SUMMARY | 2025-10-24 18:32 | XMS_ITS | Encounter Summary ---
Author Organization [employer] Address [address] [facility] 7t [place] [address] Care Team Providers Care Paver Operator Name Role Phone Maranda Oakes MD Primary Care Provider +1- [phone] Maranda Oakes MD Primary Care Provider +1- [phone] Richard Enrique Unavailable Unavailable Reason for Visit * Reason Onset Date Comments Hospital Follow-up 06/22/2024 Encounter Details Date Type Department Care Team (Late st Contact Info) Description 06/22/2024 Telephone [facility] MEDICINE [address] [place] [address] Maranda Oakes MD [address] [place] [address] Hospital Follow-up Social History Tobacco Use Types Packs/Day Years Used Date Smoking Tobacco: Never Passive Smoke Exposure: Never Smokeless Tobacco: Never Alcohol Use Standard Drinks/Week Comments Never 0 (1 standard drink = 0.6 oz pur e alcohol) Depression Answer Date Recorded Patient Health Questionnaire-9 Score 2 11/25/2022 Housing Stability Answer Date Recorded What is your housing situation today? I have silvia amor 09/15/[address] you li [...] from pt requesting a HDF appt. Hospital: [facility] Date of admission: 06/20 Discharge date: 06/23 Diagnosed: No further details provided documented in this encounter Plan of Treatment Upcoming Encounters Date Type Department Care Team (Late st Contact Info) Description 10/30/2025 4:00 PM EST Office Visit [facility] MED & PEDS [address] [place] [address] Maranda Oakes MD [address] [place] [address] documented as of this encounter Visit Diagnoses Not on filedocumented in this encounter Additional Health Concerns Assessment Noted Time PHQ-9 Depression Total Score: 2 11/25/20 3:00 PM EST documented as of this encounter Care Teams Paver Operator Relationship Specialty Start Date End Date Maranda Oakes MD [address] [place] [address] PCP - General Internal Medicine 06/08/24 07/04/24 Maranda Oakes MD [address] [place] [address] PCP - General Internal Medicine 07/05/24 Richard Enrique [address] [place] [address] Dental Lye Peel Operator 01/25/25 documented as of this encounter
--- OUTSIDE RECORDS SUMMARY | 2025-10-24 18:32 | XMS_ITS | Encounter Summary ---
Author Organization [employer] Address 75 [facility] 7 [place] [address] Care Team Providers Care Medical Investigator Name Role Phone Maranad Oakes MD Primary Care Provider +1- [phone] Richard Enrique Unavailable Unavailable Reason for Referral * Consultation (Routine) - Closed Specialty Diagnoses / Procedures Referred By Alexi baumann Referred To Contact Gastroenterology Diagnoses Crohn's disease of small intestine with rectal bleeding (HCC) Maranda Oakes MD [address] [place] [address] Phone: tel: fax: Referral ID Status Reason Start Date Expiration Date V isits Requested Visits Authorized [id number] Closed Specialty Services Required 03/10/2025 03/10/2026 1 1 Encounter Details Date Type Department Care Team (Late st Contact Info) Description 03/10/2025 Orders Only [facility] MED & PEDS [address] [place] [address] Maranda Oakes MD [address] [place] [address] Crohn's disease of small intestine with rectal [...] 4:00 PM EST Office Visit [facility] MED & PEDS [address] [place] [address] Maranda Oakes MD [address] [place] [address] Scheduled Referrals Name Type Priority Associated Diagnoses Order Schedule Referral to Gastroenterology Outpatient Referral Routine Crohn's disease of small intestine with rectal bleeding (CMS/HCC) Expected: 03/10/2025 (Approximate), Expires: 03/10/2026 documented as of this encounter Visit Diagnoses Diagnosis Crohn's disease of small intestine with rectal bleeding (HCC)- Primary documented in this encounter Additional Health Concerns Assessment Noted Time PHQ-9 Depression Total Score: 2 11/25/20 22 3:00 PM EST documented as of this encounter Care Teams Medical Investigator Relationship Specialty Start Date End Date Maranda Oakes MD [address] [place], [place] [phone] PCP - General Internal Medicine 07/05/24 Richard Enrique [address] [place] [address] Dental Synthetic Filament Spinner 01/25/25 documented as of this encounter
--- OUTSIDE RECORDS SUMMARY | 2025-10-24 18:32 | XMS_ITS | Encounter Summary ---
Author Organization [employer] Address 75 [facility] 7t [place] [address] Care Team Providers Care Shoe Singer Name Role Phone Maranda Oakes MD Primary Care Provider +1- [phone] Richard Enrique Unavailable Unavailable Encounter Details Date Type Department Care Team ([facility] st Contact Info) Description 10/19/2024 Orders Only [facility] [address] [place] [address] Provider, MD Srinath Social History Tobacco Use [...] 4:00 PM EST Office Visit [facility] MED & PEDS [address] [place] [address] Maranda Oakes MD [address] [place] [address] documented as of this encounter Procedures Procedure [...] documented as of this encounter Care Teams Shoe Singer Relationship Specialty Start Date End Date Maranda Oakes MD [address] [place] [address] PCP - General Internal Medicine 07/05/24 Richard Enrique 505 [place] [address] Dental Industrial Welder 01/25/25 documented as of this encounter
--- OUTSIDE RECORDS SUMMARY | 2025-10-24 18:32 | XMS_ITS | Encounter Summary ---
Author Organization [facility] Address [address] [place] [phone] Phone Care Team Providers Care Roving Teller Name Role Phone Maranda Oakes MD Primary Care Pr ovider Encounter Details Date Type Department Care Team (Late st Contact Info) Description 02/16/2025 Procedure Pass [facility], Ct Scan - [address] [address] Social History Tobacco Use Types Packs/Day Years [...] 3:00 PM EST Office Visit [facility] [address] [place] [address] Lesly Valentin, OD [address] [place] [phone] [email or web address] 12/05/2025 3:40 PM EST Office Visit [facility] [address] [facility] [address] [place] [address] Anuja Pulido MD [address] [facility], [address] [place] [address] [email or web address] documented as of this encounter Visit Diagnoses Not on filedocumented in this encounter Care Teams Roving Teller Relationship Specialty Start Date End Date Maranda Oakes MD PCP - General Internal Medicine 08/17/24 documented as of this encounter Additional Source Comments The information contained in this document represents components of the legal health record. It is not the complete legal health record.[facility]
--- OUTSIDE RECORDS SUMMARY | 2025-10-24 18:32 | XMS_ITS | Encounter Summary ---
Author Organization [employer] Address 75 [facility] 7t [place] [address] Care Team Providers Care Commercial Lines Account Assistant Name Role Phone Kriss Woodward MD Primary Care Provider Maranda Oakes MD Primary Care Provider +1- [phone] Maranda Oakes MD Primary Care Provider Richard Enrique Unavailable Unavailable Reason for Visit * Reason Comments Med Change Request Encounter Details Date Type Department Care Team ([facility] st Contact Info) Description 11/25/[address] [facility] CHC MED & PEDS [address] [place] [address] Kriss Woodward MD [address] [place] [address] Chronic diarrhea Social History Tobacco Use Types [...] PM EST documented as of this encounter Functional Status * Over the past 2 weeks, how often have you been bothered by any of the following problems? Question Answer Date of Assessment Author Patient Health Questionnaire-2 Score 0 10/31 3:00 PM Kassidy Kelly [place] * How difficult have these problems made it for you to do your work, take care of things at home, or get along with other people? Answer Date of Assessment Author Not difficult at all 11/25/2022 3:00 PM EST Kassidy Schwartz MA * Over the past 2 weeks, how often have you been bothered by any of the following problems? Question Answer Date of Assessment Author Little interest or pleasure in doing things Not at all 11/25/2022 3:00 PM Newton Kelly MA Feeling down, depressed, or hopeless Not at all 11/25/2022 3:00 PM Kassidy Kelly M A Trouble falling or staying asleep, or sleeping too much Not at all 11/25/2022 3:00 PM Kassidy Kelly M A Feeling tired or having little energy More than half the days 11/25/2022 3:00 PM Kassidy Kelly MA Poor appetite or overeating Not at all 11/25/2022 3:00 PM Kassidy Kelly M A Feeling bad about yourself - or that you are a failure or have let yourself or your family down Not at all 11/25/2022 3:00 PM Kassidy Kelly M A Trouble concentrating on things, such as reading the newspaper or watching television Not at all 11/25/2022 3:00 PM Kassidy Kelly M A Moving or speaking so slowly that other people could have noticed? Or the opposite - being so fidgety or restless that you have been moving around a lot more than usual. Not at all 11/25/2022 3:00 PM Kassidy Kelly M A Thoughts that you would be better off or hurting yourself in some way Not at all 11/25/2022 3:00 PM Kassidy Kelly MA Patient Health Questionnaire-9 Score 2 11/25/2022 3:00 PM Kassidy Kelly MA documented as of this encounter Plan of Treatment Upcoming Encounters Date Type Department Care Team (Late st Contact Info) Description 10/30/2025 4:00 PM EST Office Visit [facility] MED & PEDS [address] [place] [address] Maranda Oakes MD [address] [place] [address] documented as of this encounter Visit Diagnoses Diagnosis Chronic diarrhea Diarrhea documented in this encounter Additional Health Concerns Assessment Noted Time PHQ-9 Depression Total Score: 2 11/25/20 3:00 PM EST documented as of this encounter Care Teams Commercial Lines Account Assistant Relationship Specialty Start Date End Date Kriss Woodward MD [address] [place] [address] PCP - General Family Medicine 02/06/23 06/07/24 Maranda Oakes MD [address] [place] [address] PCP - General Internal Medicine 06/08/24 07/04/24 Maranda Oakes MD [address] [place] [address] PCP - General Internal Medicine 07/05/24 Richard Enrique 505 [place] [address] Dental Booking Manager 01/25/25 documented as of this encounter
--- OUTSIDE RECORDS SUMMARY | 2025-10-24 18:32 | XMS_ITS | Encounter Summary ---
Author Organization [employer] Address [address] [facility] [address] 7[address] [place] [address] Care Team Providers Care Water Proofer Name Role Phone Maranda Oakes MD Primary Care Provider +1- [phone] Richard Enrique Unavailable Unavailable Encounter Details Date Type Department Care Team ([facility] st Contact Info) Description 10/09/2025 Orders Only [facility] CHC MED & PEDS [address] [place] [address] Provider, MD Srinath Social History Tobacco Use [...] Upcoming Encounters Date Type Department Care Team ([facility] st Contact Info) Description 10/30/2025 4:00 PM EST Office Visit [facility] MED & PEDS [address] [place] [address] Maranda Oakes MD [address] [place] [address] documented as of this encounter Procedures Procedure Name Priority Date/Time Associated Diagnosis Comments XR CHEST 2 VIEWS Routine 10/06/2025 1:03 PM EST documented in this encounter Results * XR Chest 2 Views (10/06/2025 1:03 PM EST) Anatomical Region Laterality Modality Chest Radiographic Sarahi ging us Historical Provider MD VALDOVINOS XR PROCEDURES Final R esult documented in this encounter Visit Diagnoses Not on filedocumented in this encounter Additional Health Concerns Assessment Noted Time PHQ-9 Depression Total Score: 0 08/07/20 25 3:22 PM EDT documented as of this encounter Care Teams Water Proofer Relationship Specialty Start Date End Date Maranda Oakes MD [address] [place] [address] PCP - General Internal Medicine 07/05/24 Richard Enrique 505 [place] [address] Dental Career And Technology Education Teacher 01/25/25 documented as of this encounter
== END 2025-10-24 14:57 | disposition home or self-care (01) ==
LOC: HO.HGS 14:44
PROVIDERS: PCP Internal Medicine; Visit Provider Surgery
DX: D17.1 Benign lipomatous neoplasm of skin and subcutaneous tissue of trunk (principal)
CPT/HCPCS: 99203

== ENCOUNTER → 2025-10-24 14:43 | Outpatient (BNVA) | payer MEDICAID, SELFPAY | PROVIDERS: PCP Internal Medicine; Visit Provider Surgery | DX: Z01.818 Encounter for other preprocedural examination (principal); D17.9 Benign lipomatous neoplasm, unspecified | CPT/HCPCS: 99202 ==

== ENCOUNTER 2025-11-10 15:28 | Outpatient (AMB) | payer MEDICAID, SELFPAY ==
--- NOTE | 2025-11-10 15:31 | MHC.OFFVIS ---
Vital Signs 11/10/25 15:38 Height 6 ft 1 in Weight 327 lb BMI 43.1 BP 136/80 Blood Pressure Location Lt brachial Position Sitting Pulse 82 Pulse Source Pulse Oximeter Pulse Oximetry (%) 97 Oxygen Delivery Method Room Air Intake Visit Reasons: 30 m. Review meds. R/S from 08/18 Intake Note: ESTABLISHED PATIENT for mgmt of GERD + Crohn's. Eval response to new med. Chief Complaint; C/O diarrhea persistence. However, pt is doing very well with the new medication and reports that all his other sx have subsided. Mechanical Engineering Intern Required: Yes Mechanical Engineering Intern Services: Mechanical Engineering Intern Offered & Declined Accompanied by: Spouse Allergies adalimumab (From Humira) Allergy (Severe, Verified 10/24/25 14:49) sarcoidosis bee venom protein (honey bee) Allergy (Severe, Verified 10/24/25 14:49) Anaphylaxis sacubitril (From Entresto) Adverse Reaction (Severe, Verified 10/24/25 14:49) Numbness valsartan (From Entresto) Adverse Reaction (Severe, Verified 10/24/25 14:49) Numbness HPI HPI 30 m. Review meds. R/S from 08/18: Details: LAST VISIT: Crohn disease Sarcoidosis of lung Most likely after being started with Humira. Patient has not followed up closely in our office even though he had appointment every 3 months. Multiple admissions at [facility], long-term prednisone therapy. Currently patient is cleared off prednisone and followed by pulmonology. 15 minutes spent reviewing records from [place] from multiple admissions and ED visits. Long discussion with patient about the importance of following up after being placed on this type of the medication. Plan Patient will be sent for CT enterography. We were able to get patient urgent appointment, however patient's reports that she is unable to bring him to that appointment due to [facility] schedule. Urge patient to bring stool study to check for review fecal calprotectin. Will start him on mesalamine daily. Patient can start taking Nexium as he occasionally you will have epigastric pain and reflux. Recent long-term therapy with prednisone, weight gain which also can be contributing to his reflux patient was encouraged to try to lose weight. He will follow-up with us in 4 weeks. He will call us if he will have any GI concerning symptoms. Both patient and his are agreeable to plan of care and verbalizes understanding of instructions. They were given the opportunity to ask questions and all questions answered. ? Thank you for allowing me to participate in his care Orders CT enterography 03/07/25 R19.5, R79.82, K50.90 Blood Urea Nitrogen 03/07/25 R10.11 Calprotectin, Fecal 03/07/25 R15.9 Creatinine 03/07/25 R10.11 New esomeprazole magnesium (Nexium) 40 mg PO DAILY 90 caps 3RF K21.9 mesalamine (Lialda) 2.4 grams (2 x 1.2 gram) PO DAILY 180 tabs 4RF 3 months K50.90 TODAY'S VISIT: Patient is here today for follow-up. Patient reports that he has been doing much better. He is not having any GI concerning symptoms except occasional diarrhea. Patient reports to have a good appetite. He is taking mesalamine. Patient denies any abdominal pain or discomfort. He is taking Nexium in the morning with good affect. Patient reports that he gained a lot of weight from being on antibiotics in the past and it is hard to lose all the weight. Patient denies any dyspepsia, dysphagia or odynophagia. Denies melena, hematochezia. [facility] Medical History (Updated 11/10/25 @ 20:18 by Guillermina Mccall [facility]) GERD (gastroesophageal reflux disease) Sarcoidosis of lung Obesity Asthma Surgical History Hx of colonoscopy History of esophagogastroduodenoscopy (EGD) History of hand surgery S/P eye surgery Family History Mother HTN (hypertension) Diabetes Anemia Maternal Grandmother Anemia Diabetes HTN (hypertension) Lung cancer Social History Household Members: Significant Other and Children Alcohol intake: never Patient Tobacco Use Status: Never used Tobacco Review of Systems Const Denies weight gain and Denies weight loss ENT Reports no additional complaints, Denies dysphagia and Denies odynophagia Card Reports no additional complaints Resp Reports no additional complaints GI Denies abdominal pain, Denies belching, Denies melena, Denies bloating, Denies hematochezia, Denies constipation, Denies dysphagia, Denies excessive flatus, Denies dyspepsia, Denies heartburn, Denies diarrhea, Denies loose stools, Denies nausea, Denies odynophagia and Denies vomiting Reports no additional complaints Musc Reports no additional complaints Neuro Reports no additional complaints Psych Reports no additional complaints Endo Reports no additional complaints Physical Exam Vital Signs: Last Vital Signs Pulse 82 11/10/25 15:38 BP 136/80 11/10/25 15:38 Pulse Ox 97 11/10/25 15:38 Oxygen Delivery Method Room Air 11/10/25 15:38 BMI result Body Mass Index 43.1 Const General: healthy appearing, no acute distress and well developed Nutritional Appearance: obese Orientation/consciousness: patient oriented x3 HEENT Head: Yes normal to inspection, Yes normocephalic and Yes atraumatic Face and sinus: Yes normal facial exam Mouth: Normal oral and palatal mucosa present Throat: Yes posterior oropharynx normal, Yes tonsils normal and Yes uvula midline Eyes General: appearance normal, both eyes and all related structures Neck Neck: Yes normal visual inspection, Yes full ROM and Yes trachea midline Thyroid: Thyroid normal Resp Effort & Inspection: normal respiratory effort, able to speak in complete sentences, no tracheal deviation and symmetric chest movement Auscultation: clear to auscultation bilaterally Cardio Rate: regular rate GI Inspection: Yes normal to inspection, No distended and Yes obesity Palpation (GI): Soft to palpation, not firm, nontender and No hepatosplenomegaly present Auscultation: normal bowel sounds General: Yes no CVA tenderness Back/Spine/Pelvis Back: no CVA tenderness Skin General skin exam: elasticity normal, turgor normal and dry skin Neuro General: patient oriented x3 Psych Appearance: grossly normal Mental Status: mental status grossly normal Affect: normal affect Assessment & Plan Assessment & Plan (1) Crohn's disease: Code(s): K50.90 - Crohn's disease, unspecified, without complications (2) GERD (gastroesophageal reflux disease): Code(s): K21.9 - Gastro-esophageal reflux disease without esophagitis Category: Medical Qualifiers: Esophagitis presence: esophagitis presence not specified Qualified Code(s): K21.9 - Gastro-esophageal reflux disease without esophagitis Plan Patient will continue mesalamine. Continue avoiding dietary triggers. Continue Nexium. Avoid eating late at night. Patient was encouraged to try to lose weight. Follow-up in 6 months, sooner on as needed basis. He is agreeable to this plan and verbalizes understanding of instructions. He was given the opportunity to ask questions and all questions answered. Thank you for allowing me to participate in his care Medications: Refilled mesalamine ER (Pentasa) 1,000 mg (2 x 500 mg) PO BID 360 caps 4RF 90 days Coding Level of Care Code Est Pt Level 3 (66898) Diagnoses Crohn's disease K50.90 Gastroesophageal reflux disease, unspecified whether esophagitis present K21.9 Esophagitis presence: esophagitis presence not specified Time Spent (min) 30 Comment 20 minutes spent with patient and additional 10 minutes spent reviewing his records
[2025-11-10 15:38] VITALS: BP 136/80; PULSE 82; O2SAT 97; BMI 43.1
--- OUTSIDE RECORDS SUMMARY | 2025-11-10 20:18 | XMS_ITS | Encounter Summary ---
Author Organization [employer] Address 75 [facility] 7t [place] [address] Care Team Providers Care Coating And Embossing Unit Operator Name Role Phone Kriss Woodwrad MD Primary Care Provider Maranda Oakes MD Primary Care Provider [phone]- [phone] Maranda Oakes MD Primary Care Provider Richard Enrique Unavailable Unavailable Reason for Visit * Reason Comments Med Change Request Encounter Details Date Type Department Care Team ([facility] st Contact Info) Description 11/25/2022 Refill [facility] CHC MED & PEDS [address] [place] [address] Kriss Woodward MD [address] [place] [address] Chronic diarrhea Social History Tobacco Use Types [...] documented as of this encounter Care Teams Coating And Embossing Unit Operator Relationship Specialty Start Date End Date Kriss Woodward MD [address] [place] [address] PCP - General Family Medicine 02/06/23 06/07/24 Maranda Oakes MD [address] [place] [address] PCP - General Internal Medicine 06/08/24 07/04/24 Maranda Oakes MD [address] [place] [address] PCP - General Internal Medicine 07/05/24 Richard Enrique [address] [place] [address] Dental Office Secretary 01/25/25 documented as of this encounter
--- OUTSIDE RECORDS SUMMARY | 2025-11-10 20:18 | XMS_ITS | Encounter Summary ---
Author Organization [employer] Address [address] [place] [address] Care Team Providers Care Supervisor Instrument Mechanics Name Role Phone Maranda Oakes MD Primary Care Provider +1 -[phone] Reason for Visit * Reason Onset Date Comments provider call back 11/03/2025 Encounter Details Date Type Department Care Team (Late st Contact Info) Description 11/03/2025 Results Follow-Up [facility] Pulmonary [address] [place] [phone] Rosales Burnham MD [address] [place] [phone] Social History Tobacco Use Types Packs/Day Years [...] as of this encounter Progress Notes * Jacki Stein MA - 11/06/2025 12:09 PM EST Please advise on results * Marilou Marshall - 11/03/2025 12:07 PM EST Patients is calling back , provider called but he was unable to answer. She is asking if provider can call her back instead to go over results . Her number is [phone]. Please advise documented in this encounter Plan of Treatment Upcoming Encounters Date Type Department Care Team (Late st Contact Info) Description 11/17/2025 2:30 PM EST Office Visit Pulmonology - [place] [address] [facility] [address] [place] [phone] Rosales Burnham MD [address] [place] [phone] 04/12/2026 10:00 AM EDT Ancillary Procedure [facility] [address] [facility] [address] [place] [phone] documented as of this encounter Visit Diagnoses Not on filedocumented in this encounter Care Teams Supervisor Instrument Mechanics Relationship Specialty Start Date End Date Maranda Oakes MD [address] [place], [place] PCP - General 07/11/24 documented as of this encounter
--- OUTSIDE RECORDS SUMMARY | 2025-11-10 20:18 | XMS_ITS | Encounter Summary ---
Author Organization [employer] Address [address] [facility] [address] 7[address] [place] [address] Care Team Providers Care Nursing Informatics Clinical Analyst Name Role Phone Maranda Oakes MD Primary Care Provider +1- [phone] Richard Enrique Unavailable Unavailable Encounter Details Date Type Department Care Team ([facility] st Contact Info) Description 10/17/2025 Orders Only [facility] CHC MED & PEDS [address] [place] [address] Provider, MD Srinath Social History Tobacco Use [...] encounter Results * ECG 12 lead (10/13/2025) us Historical Provider ECG ORDERABLES Final Res ult documented in this encounter Visit Diagnoses Not on filedocumented in this encounter Additional Health Concerns Assessment Noted Time PHQ-9 Depression Total Score: 0 08/07/20 25 3:22 PM EDT documented as of this encounter Care Teams Nursing Informatics Clinical Analyst Relationship Specialty Start Date End Date Maranda Oakes MD [address] [place] [address] PCP - General Internal Medicine 07/05/24 Richard Enrique [address] [place] [address] Dental Elevator Constructor Supervisor 01/25/25 documented as of this encounter
--- OUTSIDE RECORDS SUMMARY | 2025-11-10 20:18 | XMS_ITS | Encounter Summary ---
Author Organization [employer] Address [address] [facility] [address] 7t [place] [address] Care Team Providers Care Bevel Mill Operator Name Role Phone Maranda Oakes MD Primary Care Provider +1- [phone] Richard Enrique Unavailable Unavailable Encounter Details Date Type Department Care Team ([facility] st Contact Info) Description 10/09/2025 Orders Only [facility] CHC MED & PEDS [address] [place] [address] Provider, MD Srinath Social History Tobacco Use [...] documented as of this encounter Care Teams Bevel Mill Operator Relationship Specialty Start Date End Date Maranda Oakes MD 505 [facility] [place] [address] PCP - General Internal Medicine 07/05/24 Richard Enrique 505 [facility] [place] [address] Dental Picker Tender Helper 01/25/25 documented as of this encounter
--- OUTSIDE RECORDS SUMMARY | 2025-11-10 20:18 | XMS_ITS | Encounter Summary ---
Author Organization [facility] Address [address] [place] [address] Phone Care Team Providers Care Milk Truck Driver Name Role Phone Nader Duran MD Primary Care Provider +1 -[phone] Maranda Oakes MD Primary Care Pr ovider Encounter Details Date Type Department Care Team (Late st Contact Info) Description 09/27/2020 Telephone [facility] [address] [place] [address] Latoya Bhatia, OD [address] [place] [address] [email or web address] Social History Tobacco Use Types Packs/Day Years [...] Care Team (Late st Contact Info) Description 12/05/2025 3:40 PM EST Office Visit [facility] [address] [place] [address] Anuja Pulido MD [address] [place] [address], [address] [place] [address] [email or web address] documented as of this encounter Visit Diagnoses Not on filedocumented in this encounter Care Teams Milk Truck Driver Relationship Specialty Start Date End Date Nader Duran MD [address] [place] [address] PCP - General Pediatrics 12/07/17 08/16/24 Maranda Oakes MD [address] [place] [address] PCP - General Internal Medicine 08/17/24 documented as of this encounter Additional Source Comments The information contained in this document represents components of the legal health record. It is not the complete legal health record.[facility]
--- OUTSIDE RECORDS SUMMARY | 2025-11-10 20:19 | XMS_ITS | Clinical Summary ---
Author Organization [facility] Address [address] [place] [address] [place] [address] Phone Care Team Providers Care Cigar Binder Name Role Phone Maranda Oakes MD Primary [...] EDT Office Visit [facility] [address] [facility] [address] [place] [address] Anuja Pulido MD Keratoconus of both eyes (Primary Dx) 09/21/2025 11:00 AM EDT Office Visit [facility] 1 [place] [address] Lesly Valentin, OD Keratoconus of both eyes (Primary Dx); Hypermetropia [...] EST Office Visit [facility] [address] [facility] [address] [place] [address] Anuja Pulido MD 110 [facility], [address] [place] [address] [email or web address] Health Maintenance Due Date Last Done Comments DEPRESSION SCREENING 2010 HEPATITIS C SCREENING 2016 HIV ONE-TIME SCREENING (18-65 YEARS) 2016 PNEUMOCOCCAL VACCINES (0-49 years) (1 of 2 - PCV) 2017 HEPATITIS A VACCINES (2 of 2 - 2-dose series) 05/11/2018 11/10/2017 INFLUENZA VACCINE (#1) 2025 7, 08/08/2016, 08/28/2015, Additional history exists COVID-19 VACCINE ( - season) 2025 CREATININE LEVEL 02/16/2026 02/16/2025 POTASSIUM [...] EDT Notes increased steepning OD OS stable Anuja Dale MD OPHTHALMOLOGY IMAGIN G Final Result * Comprehensive metabolic panel (02/16/2025 1:10 PM EDT) SODIUM 140 135 - 145 mmol/L [facility] POTASSIUM 4.3 3.4 - 5.0 mmol/L [facility] CHLORIDE 104 98 - 108 mmol/L [facility] CO2 25 23 - 32 mmol/L [facility] BUN 9 8 - 25 mg/dL [facility] CREATININE 0.91 0.60 - 1.30 mg/dL [facility] GLUCOSE 101 70 - 110 mg/dL [facility] ALBUMIN 4.6 3.3 - 5.0 g/dL [facility] TOTAL PROTEIN 7.8 6.0 - 8.3 g/dL [facility] CALCIUM 9.7 8.5 - 10.5 mg/dL [facility] ALKALINE PHOSPHATASE 99 45 - 115 U/L [facility] TOTAL BILIRUBIN 0.6 0.0 - 1.0 mg/dL [facility] AST 27 10 - 40 U/L [facility] ALT 23 10 - 55 U/L [facility] GLOBULIN 3.2 1.9 - 4.1 g/dL [facility] EGFR 119 >59 mL/min/1.7 3m2 [facility] Comment:Estimated glomerular filtration rate calculated using the CKD-EPI refit equation. ANION GAP 11 3 - 17 mmol/L [facility] Blood 02/16/2025 1:10 PM EDT 02/16/2025 1:14 PM EDT us Veronique Paredes MD LAB BLOOD BKR ORDERABLES Fin al Result [facility] [address] [place] [address] from Last 3 Months or Most Recently Relevant to Health Maintenance Care Teams Cigar Binder Relationship Specialty Start Date End Date Maranda Oakes MD PCP - General Internal Medicine 08/17/24 Additional Source Comments The information contained in this document represents components of the legal health record. It is not the complete legal health record.[facility]
--- OUTSIDE RECORDS SUMMARY | 2025-11-10 20:19 | XMS_ITS | Encounter Summary ---
Author Organization [employer] Address [address] [facility] 7t [place] [address] Care Team Providers Care Marine Railway Operator Name Role Phone Kriss Woodward MD Primary Care Provider Maranda Oakes MD Primary Care Provider [phone]- [phone] Maranda Oakes MD Primary Care Provider Richard Enrique Unavailable Unavailable Reason for Visit * Reason Onset Date Comments Nurse Triage 02/01/2024 Encounter Details Date Type Department Care Team ([facility] st Contact Info) Description 02/01/2024 Telephone [facility] MED & PEDS [address] [place], [place] [phone] Kriss Woodward MD 505 [place] [address] Nurse Triage Social History Tobacco Use Types [...] this outcome Please contact pt spouse at [phone] documented in this encounter Plan of Treatment Not on file documented as of this encounter Visit Diagnoses Not on filedocumented in this encounter Additional Health Concerns Assessment Noted Time PHQ-9 Depression Total Score: 2 11/25/20 22 3:00 PM EST documented as of this encounter Care Teams Marine Railway Operator Relationship Specialty Start Date End Date Kriss Woodward MD [address] [place] [address] PCP - General Family Medicine 02/06/23 06/07/24 Maranda Oakes MD 505 [place] [address] PCP - General Internal Medicine 06/08/24 07/04/24 Maranda Oakes MD 505 [place] [address] PCP - General Internal Medicine 07/05/24 Richard Enrique 505 [place] [address] Dental Die Cast Supervisor 01/25/25 documented as of this encounter
--- OUTSIDE RECORDS SUMMARY | 2025-11-10 20:19 | XMS_ITS | Encounter Summary ---
Author Organization [employer] Address [address] [facility] 7 [place] [address] Care Team Providers Care Plant Buyer Name Role Phone Maranda Oakes MD Primary Care Provider +1- [phone] Richard Enrique Unavailable Unavailable Reason for Referral * Consultation (Routine) - Closed Specialty Diagnoses / Procedures Referred By Alexi baumann Referred To Contact Gastroenterology Diagnoses Crohn's disease of small intestine with rectal bleeding (HCC) Maranda Oakes MD [address] [place] [address] Phone: tel: fax: Referral ID Status Reason Start Date Expiration Date V isits Requested Visits Authorized [id number] Closed Specialty Services Required 03/10/2025 03/10/2026 1 1 Encounter Details Date Type Department Care Team (Late st Contact Info) Description 03/10/[address] [facility] CHC MED & PEDS [address] [place] [address] Maranda Oakes MD 505 [place] [address] Crohn's disease of small intestine with rectal [...] documented as of this encounter Care Teams Plant Buyer Relationship Specialty Start Date End Date Maranda Oakes MD 505 [place] [address] PCP - General Internal Medicine 07/05/24 Richard Enrique 505 [place] [address] Dental Carpet Mechanic 01/25/25 documented as of this encounter
--- OUTSIDE RECORDS SUMMARY | 2025-11-10 20:19 | XMS_ITS | Encounter Summary ---
Author Organization [employer] Address 75 [facility] 7t [place] [address] Care Team Providers Care Assistant To The Vice President Name Role Phone Maranda Oakes MD Primary Care Provider +1- [phone] Maranda Oakes MD Primary Care Provider +1- [phone] Richard Enrique Unavailable Unavailable Reason for Visit * Reason Onset Date Comments Hospital Follow-up 06/22/2024 Encounter Details Date Type Department Care Team (Late st Contact Info) Description 06/22/2024 Telephone [facility] MEDICINE [address] [place] [address] Maranda Oakes MD 505 [place] [address] Hospital Follow-up Social History Tobacco Use Types [...] from pt requesting a HDF appt. Hospital: [facility] Date of admission: 06/20 Discharge date: 06/23 Diagnosed: No further details provided documented in this encounter Plan of Treatment Not on file documented as of this encounter Visit Diagnoses Not on filedocumented in this encounter Additional Health Concerns Assessment Noted Time PHQ-9 Depression Total Score: 2 11/25/20 22 3:00 PM EST documented as of this encounter Care Teams Assistant To The Vice President Relationship Specialty Start Date End Date Maranda Oakes MD 505 [facility] [address] PCP - General Internal Medicine 06/08/24 07/04/24 Maranda Oakes MD 505 [place] [address] PCP - General Internal Medicine 07/05/24 Richard Enrique 505 [facility] [place] [address] Dental Veterinary Dentist 01/25/25 documented as of this encounter
--- OUTSIDE RECORDS SUMMARY | 2025-11-10 20:19 | XMS_ITS | Encounter Summary ---
Author Organization [email or web address] Address [address] [facility] 7t [place] [address] Care Team Providers Care Straightedge Worker Name Role Phone Maranda Oakes MD Primary Care Provider +1- [phone] Richard Enrique Unavailable Unavailable Encounter Details Date Type Department Care Team ([facility] st Contact Info) Description 10/19/2024 Orders Only [facility] [address] [place] [address] Provider, MD Srinath Social History Tobacco Use [...] documented as of this encounter Care Teams Straightedge Worker Relationship Specialty Start Date End Date Maranda Oakes MD 505 [facility] [place] [address] PCP - General Internal Medicine 07/05/24 Richard Enrique 505 [facility] [place] [address] Dental Gold Reclaimer 01/25/25 documented as of this encounter
--- OUTSIDE RECORDS SUMMARY | 2025-11-10 20:19 | XMS_ITS | Clinical Summary ---
Author Organization [facility] Address [address] [place] [address] Phone Care Team Providers Care Petrophysicist Name Role Phone Maranda Oakes MD Primary Care Provider +1 -[phone] Allergies Active Allergy Reactions Criticality Noted Date Comments Sacubitril-Valsartan Dizziness High 12/09/2024 Dizzines,left arm numbness. Medications albuterol 1.25 mg/3 mL nebulizer solution Take 1 Ampule by nebulization every 6 hours as needed. Active fluticasone furoate (Arnuity Ellipta) 100 mcg/actuation blister with device inhaler Inhale 1 puff by mouth 1 (one) time each day. 1 each 5 026 Active Ventolin HFA 90 mcg/actuation [...] Future Dilated cardiomyopathy 10/19/2024 Assessment & Plan (10/13/2025 12:56 PM [...] Encounters Date Type Department Care Team Description 11/03/2025 Results Follow-Up [facility] Pulmonary [address] [place] [phone] Rosales Burnham MD 10/19/2025 Telephone [facility] [address] [facility] [address] [place] [phone] Provider, Not In System 10/13/2025 3:15 PM EST Ancillary Procedure Pulmonology - [place] [address] [phone] Sarcoidosis 10/13/2025 8:20 AM EST Office Visit [facility] [address] [facility] [address] [place] [phone] Av Gloria MD Dilated cardiomyopathy (CMS/HCC V24, CMS/HCC V28) (Primary Dx) 10/06/2025 4:15 PM EST - 10/06/2025 11:59 PM EST Hospital Encounter [facility] Xray [address] [place] [phone] Sarcoidosis Discharge Disposition: Home or Self Care 10/06/2025 3:45 PM EST Office Visit Pulmonology [facility] [address] [phone] Rosales Burnham MD Sarcoidosis (Primary Dx) [facility] [address] [phone] Rosales Burnham MD from Last 3 Months [...] on file Sexual Orientation Not on file Last Filed Vital Signs Vital Sign Reading [...] 2:30 PM EST Office Visit Pulmonology - [place] [address] [facility] [address] [place] [address] Rosales Burnham MD [address] [place] [phone] 04/12/2026 10:00 AM EDT Ancillary Procedure [facility] [address] [place] [address] Health Maintenance Due Date Last Done Comments [...] GEMUSE QTc 469 ms GEMUSE P Wave Republic 59 degrees GEMUSE R Republic 36 degrees GEMUSE T Republic 28 degrees GEMUSE ECG Interpretation Normal sinus rhythm Normal ECG When compared with ECG of 19-OCT-2024 13:14, Nonspecific T wave abnormality has replaced inverted T waves in Inferior leads Nonspecific T wave abnormality no longer evident in Anterolateral leads Confirmed by Lizbet GLORIA JAMES ([id number]) on 10/13/2025 12:36:14 PM GEMUSE 10/13/2025 8:37 AM EST 10/13/2025 12:36 PM EST us Av Gloria MD ECG ORDERABLES Final Result GEMUSE * XR Chest 2 Views (10/06/2025 4:21 PM EST) Anatomical Region Laterality Modality Body Radiographic Sarahi ging 10/09/2025 9:25 AM EST Impressions 10/09/2025 9:27 AM EST Chronic elevation of the right hemidiaphragm. Discoid atelectasis is present at the right lung base, new since 02/08/2025. The lungs are otherwise clear. Code 83109 -------- FINAL REPORT -------- Dictated By: Ivan Costa Dictated Date: 10/09/2025 09:25 ET Assigned Physician: Ivan Costa Reviewed and Electronically Signed By: Ivan Costa Signed Date: 10/09/2025 09:27 ET Workstation ID: [id number] Transcribed By: Self Edit Transcribed Date: 10/09/2025 [...] since 02/08/2025. The lungs areotherwise clear. Code 29879 -------- FINAL REPORT -------- Dictated By: Ivan Costa Dictated Date: 10/09/2025 09:25 ET Assigned Physician: Ivan Costa Reviewed and Electronically Signed By: Ivan Costa Signed Date: 10/09/2025 09:27 ET Workstation ID: [id number] Transcribed By: Self Edit Transcribed Date: 10/09/2025 09:25 ET Rosales Burnham MD IMG XR PROCEDURES Final Result * Annual BMP Blood Test (09/13/2024) Annual BMP Blood Test Abstracted us Historical Provider HEALTH MAINTENANCE Final Result from Last 3 Months or Most Recently Relevant to Health Maintenance Insurance MEDICAID - [place] Care Teams Petrophysicist Relationship Specialty Start Date End Date Maranda Oakes MD [address] [place], [place] PCP - General 07/11/24
--- OUTSIDE RECORDS SUMMARY | 2025-11-10 20:19 | XMS_ITS | Encounter Summary ---
Author Organization [employer] Address [address] [facility] [address] 7[address] [place] [address] Care Team Providers Care Collar Feller Name Role Phone Maranda Oakes MD Primary Care Provider +1- [phone] Richard Enrique Unavailable Unavailable Encounter Details Date Type Department Care Team (Late st Contact Info) Description 08/15/2024 Orders Only [facility] CHC MED & PEDS [address] [place] [address] Provider, MD Srinath Social History Tobacco Use [...] documented as of this encounter Care Teams Collar Feller Relationship Specialty Start Date End Date Maranda Oakes MD 505 [facility] [place] PCP - General Internal Medicine 07/05/24 Richard Enrique 505 [facility] [place] Dental Call Manager 01/25/25 documented as of this encounter
--- OUTSIDE RECORDS SUMMARY | 2025-11-10 20:19 | XMS_ITS | Encounter Summary ---
Author Organization [employer] Address 75 [facility] 7t [place] [address] Care Team Providers Care Electronic Transaction Implementer Name Role Phone Maranda Oakes MD Primary Care Provider +1- [phone] Richard Enrique Unavailable Unavailable Encounter Details Date Type Department Care Team ([facility] st Contact Info) Description 12/09/2024 Orders Only [facility] [address] [place] [address] Provider, MD Srinath Social History Tobacco Use [...] documented as of this encounter Care Teams Electronic Transaction Implementer Relationship Specialty Start Date End Date Maranda Oakes MD 505 [place] [address] PCP - General Internal Medicine 07/05/24 Richard Enrique 505 [facility] [place] [address] Dental Interventional Physician 01/25/25 documented as of this encounter
--- OUTSIDE RECORDS SUMMARY | 2025-11-10 20:19 | XMS_ITS | Encounter Summary ---
Author Organization [employer] Address [address] [facility] 7t [place] [address] Care Team Providers Care Barker Operator Name Role Phone Kriss Woodward MD Primary Care Provider Maranda Oakes MD Primary Care Provider Maranda Oakes MD Primary Care Provider Richard Enrique Unavailable Unavailable Reason for Visit * Reason Onset Date Comments Appointment 03/11/2023 Encounter Details Date Type Department Care Team (Late st Contact Info) Description 03/11/2023 Telephone [facility] ADULT DENTAL [address] [place], [place] [phone] Richa Velasquez, FRANCESS [address] [place], [place] [phone] Appointment Social History Tobacco Use Types Packs/Day [...] appt. He has been on waitlist in [facility] since 12/2021. He would like to be scheduled DR documented in this encounter Plan of Treatment Not on file documented as of this encounter Visit Diagnoses Not on filedocumented in this encounter Additional Health Concerns Assessment Noted Time PHQ-9 Depression Total Score: 2 11/25/20 22 3:00 PM EST documented as of this encounter Care Teams Barker Operator Relationship Specialty Start Date End Date Kriss Woodward MD [address] [place] [address] PCP - General Family Medicine 02/06/23 06/07/24 Maranda Oakes MD [address] [place] [address] PCP - General Internal Medicine 06/08/24 07/04/24 Maranda Oakes MD [address] [place] [address] PCP - General Internal Medicine 07/05/24 Richard Enrique [address] [place] [address] Dental Celebrity Chef Entrepreneur Media Personality 01/25/25 documented as of this encounter
--- OUTSIDE RECORDS SUMMARY | 2025-11-10 20:19 | XMS_ITS | Encounter Summary ---
Author Organization [facility] Address [address] [place] [address] [place] [address] Phone Care Team Providers Care Inspecting Supervisor Name Role Phone Maranda Oakes MD Primary Care Pr ovider Encounter Details Date Type Department Care Team (Late st Contact Info) Description 02/16/2025 Procedure Pass [facility], Ct Scan - [address] [address] Social History Tobacco Use Types Packs/Day Years [...] EST Office Visit [facility] [address] [facility] [address] [place] [address] Anuja Pulido MD 110 [facility], [address] [place] [address] [email or web address] documented as of this encounter Visit Diagnoses Not on filedocumented in this encounter Care Teams Inspecting Supervisor Relationship Specialty Start Date End Date Maranda Oakes MD PCP - General Internal Medicine 08/17/24 documented as of this encounter Additional Source Comments The information contained in this document represents components of the legal health record. It is not the complete legal health record.[facility]
--- OUTSIDE RECORDS SUMMARY | 2025-11-10 20:19 | XMS_ITS | Clinical Summary ---
Author Organization [employer] Address [address] [place] [address] Care Team Providers Care Tailer Out Name Role Phone Maranda Oakes MD Primary Care Provider [phone] Richard Enrique Unavailable Unavailable Allergies Active Allergy [...] review at this moment from [facility], reports had CT scan of the [...] Department Care Team Description 10/17/2025 Orders Only [facility] [address] [place] [address] Srinath wHang MD 10/12/[address] [facility] [address] [place] [address] Maranda Oakes MD no show 10/09/2025 Orders Only [facility] [address] [place] [address] Srinath Hwang MD 09/20/2025 Orders Only [facility] [address] [place] [address] Whitney Coronado MD Blurred vision (Primary Dx) 09/20/[address] [facility] [address] [place] [address] Maranda Oakes MD 09/12/2025 4:00 PM EDT Office Visit [facility] [address] [place] [address] Maranda Oakes MD Crohn's disease of small intestine with rectal bleeding (HCC) (Primary Dx); Primary hypertension; Mild persistent asthma, unspecified whether complicated 09/12/2025 Travel from Last 3 Months Immunizations Immunization Administration [...] 09/12/2025 4:02 PM EDT Plan of Treatment Health Maintenance Due Date [...] 11:00 AM EDT) Triglycerides 69 <150 mg/dL [facility] Comment:Desirable Triglyceri de: less than 150 mg/dLBorderline High Triglyceride 150-199 mg/dLHigh Triglyceride: 200-499 mg/dLVery High Triglyceride: greater than or equal to 5OO mg/dL Cholesterol 158 <200 mg/dL [facility] Comment:Desirable Cholestero l: less than 200 mg/dLBorderline High Cholesterol: 200-239 mg/dLHigh Cholesterol: greater than 239 mg/dL LDL Cholesterol Calculated 111(H) <100 mg/dL [facility] Comment:Desirable LDL: less than 100 mg/dLNear Optimal/Above Optimal LDL: 110- 129 mg/dLBorderline High LDL: 130-159 mg/dLHigh LDL: 160-189 mg/dLVery High LDL: greater than or equal to 190 mg/dL HDL Cholesterol 34(L) >40 mg/dL [facility] Comment:Desirable HDL: great er than 40 mg/dL Note: This HDL assay may give artificially low results in patients with liver disease. Blood Venous blood specimen / Unknown 03/19/2024 11:00 AM EDT 03/19/2024 11:00 AM EDT Maranda Oakes MD LAB BLOOD ORDERABLES Final Result Performing Organization Address [facility] Co de Phone Number [facility] [address] [place] [address] [phone] HIV Ab/Ag (GEE MATTHIAS) (01/26/2023 3:30 PM EST) Pathologist [facility] HIV AB/AG Nonreactive Nonreactive [facility] Comment:HIV-1 p24 Ag and/or HIV-1/HIV-2 Ab not detected.A test result that is nonreactive does not exclude thepossibility of exposure to or infection with HIV-1 and/orHIV-2. Nonreactive results in this assay for individualswith prior exposure to HIV-1 and/or HIV-2 may be due toantigen and antibody levels that are below the limit ofdetection of this assay.The [employer] HIV Ag/Ab Combo assay result andsupplemental assay results should be interpreted inconjunction with the patient's clinical presentation,history and other laboratory results. If the results areinconsistent with clinical evidence, additional testing issuggested to confirm the result. 01/26/2023 3:30 PM EST 01/26/2023 3:30 PM EST [facility] External Provider LAB BLO OD ORDERABLES Final Result Performing Organization Address [facility] Co de Phone Number [facility] [address] [place] [phone] * Hepatitis Panel, General (01/26/2023 3:30 PM EST) Pathologist [facility] Hepatitis A IgM Nonreactive Nonreactive [facility] Comment:IgM antibodies to ESPARZA V not detected; does not exclude earlyacute or recovered HAV infection. ~Hepatitis B Surface Antibody NONREACTIVE Nonreactive [facility] Comment:Nonreactive: < 8.00 mIU/mL Hepatitis B Core Antibody Nonreactive Nonreactive [facility] Hepatitis C Antibody Nonreactive Nonreactive [facility] Comment:Antibodies to HCV no t detected; does not exclude early acuteHCV infection. Hepatitis B Surface Ag Negative Negative [facility] 01/26/2023 3:30 PM EST 01/26/2023 3:30 PM EST [facility] External Provider LAB BLO OD ORDERABLES Final Result [facility] [address] [place] [address] [phone] from Last 3 Months or Most Recently Relevant to Health Maintenance Insurance [facility] C3 [employer]-[facility] MEDICAID STAND ADULT Care Teams Tailer Out Relationship Specialty Start Date End Date Maranda Oakes MD [address] [place] [address] PCP - General Internal Medicine 07/05/24 Richard Enrique [address] [place] [address] Dental Environmental Engineering Manager 01/25/25
== END 2025-11-10 15:59 | disposition home or self-care (01) ==
LOC: HO.HGI 15:28
PROVIDERS: PCP Internal Medicine; Visit Provider Nurse Practitioner Family
DX: K50.90 Crohn's disease, unspecified, without complications (principal); K21.9 Gastro-esophageal reflux disease without esophagitis
CPT/HCPCS: 99213

== ENCOUNTER → 2025-11-10 15:28 | Outpatient (BNVA) | payer MEDICAID, SELFPAY | PROVIDERS: PCP Internal Medicine; Visit Provider Nurse Practitioner Family | DX: K50.90 Crohn's disease, unspecified, without complications (principal); K21.9 Gastro-esophageal reflux disease without esophagitis | CPT/HCPCS: 99212 ==

== ENCOUNTER 2025-11-20 06:07 | Day surgery (SDC) | payer MEDICAID, SELFPAY ==
--- NOTE | 2025-11-15 10:50 | HO.ANESPROP2 ---
Documented by User: Cydney Jacinto NP 11/17/25 14:57 HPI - Anesthesia Eval Consult details Narrative: 24 yr old male for left excision lipoma on upper back BMI 44 Follows pulmonology at [facility]: last visit was 10/06/25, reports increased difficulty breathing at visit, chest xray & PFTs were ordered. *Follow up pulmo visit scheduled 11/17/25 and to be faxed over to [facility]. Sarcoidosis: has been off steroids for ~[address] 01/2025, stable. Chest xray updated 09/2025, *see imaging details below. SEEMA: mild on sleep study so pulmo has not started CPAP yet Asthma: on arnuity, prn albuterol. 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 Tj bueno, last visit 10/24/25, pt was stable with no volume overload. Per last cards note: Cardiac MRI was completed in December 2024. His EF was mildly reduced to 40%. His RVEF is 42% with no significant right ventricular regional wall motion abnormalities. There is no visual evidence of significant valvular dysfunction. His myocardial T2 imaging revealed no evidence of diffuse myocardial edema or inflammation. [place] T1 mapping revealed no significant diffuse myocardial fibrosis. There is no MRI evidence of myocardial infarction myositis infiltrative or hypertrophic cardiomyopathy. He was referred to [place] . ? [facility] Active Problems Active Problems: All Active Problems (Updated 11/10/25 @ 20:18 by Guillermina Mccall [facility]) GERD (gastroesophageal reflux disease) (Acute) Lipoma (Acute) Sarcoidosis of lung (Acute) Morbid obesity (Acute) Hemorrhoids (Acute) Diarrhea (Acute) Rectal bleeding (Acute) Elevated C-reactive protein (CRP) (Acute) Past Medical History Medical History HTN (hypertension) Crohn's disease Left ventricular systolic dysfunction GERD (gastroesophageal reflux disease) Sarcoidosis of lung Obesity Asthma Family History Family History Mother HTN (hypertension) Diabetes Anemia Maternal Grandmother Anemia Diabetes HTN (hypertension) Lung cancer Family history of problems with anesthesia: No Surgical History Surgical History History of bronchoscopy Hx of colonoscopy History of esophagogastroduodenoscopy (EGD) History of hand surgery S/P eye surgery History of Problems with Anesthesia: No Social History Social History Household Members: Significant Other and Children Are you a primary career development manager to a significant other at home: No Do you presently have visiting nurse or other home services: No Alcohol intake: never Patient Tobacco Use Status: Never used Tobacco Second Hand Smoke Exposure: No Use of substances other than those prescribed or required for medical reasons: No Have you been hit, kicked, punched, or otherwise hurt by someone within the past year? If so, by whom?: No Are you DNR?: No Advance Directives: No Advance Directives Information Provided: Yes Advance Directives on File: No Meds Allergies Allergy/AdvReac Type Severity Reaction Status Date / Time adalimumab (From Humira) Allergy Severe sarcoidosis Verified 10/24/25 14:49 bee venom protein (honey bee) Allergy Severe Anaphylaxis Verified 10/24/25 14:49 sacubitril (From Entresto) AdvReac Severe Numbness Verified 10/24/25 14:49 valsartan (From Entresto) AdvReac Severe Numbness Verified 10/24/25 14:49 Home Medications ?Medication ?Instructions ?Recorded ?Confirmed ?Last Taken ?Type albuterol sulfate 90 mcg/actuation 2 puff inhalation Q4H PRN wheezing 12/26/22 11/16/25 Unknown History aerosol inhaler (Ventolin HFA) blood pressure test kit-large #1 ea 12/26/22 10/24/25 Unknown History fluticasone furoate 100 1 inh inhalation DAILY 03/07/25 11/16/25 Unknown History mcg/actuation blister powder for inhalation (Arnuity Ellipta) epinephrine 0.3 mg/0.3 mL 0.3 ml IM ONCE 10/24/25 11/16/25 Unknown History injection, auto-injector hydrochlorothiazide 12.5 mg tablet 12.5 mg PO DAILY 10/24/25 11/16/25 Unknown History Exam Narrative Narrative: Encounter Date: 10/13/25 ECG 12 lead Result Value ? Ventricular Rate ECG 89 ? Atrial Rate 89 ? P-R Interval 158 ? QRS Duration 88 ? Q-T Interval 386 ? QTc 469 ? P Wave [place] 59 ? R [place] 36 ? T [place] 28 ? ECG Interpretation ? ? ? Normal sinus rhythmNormal ECGWhen compared with ECG of 19-OCT-2024 13:14,Nonspecific T wave abnormality has replaced inverted T waves in Inferior leadsNonspecific T wave abnormality no longer evident in Anterolateral leads ECHO 09/2024 Conclusions: - 1. Daws-dh-ojoadhja LV systolic dysfunction with LVEF of 40-45% 2. Normal cardiac valvular Dopplers 3. No gross pericardial effusion PFTs 09/2025 FEV1/FVC 90% FEV1 3.33 at 69% FVC 63%. No bronchodilator respond. TLC 76% RV 114%. DLCO 76% (93%). Compare to 12/30/24, there is slight lost in function. No obstruction. ?Mild restriction and no decrease in diffusion. Findings consistent with mild restrictive lung disease. Chest Xray 10/06/25 MPRESSION: Chronic elevation of the right hemidiaphragm. Discoid atelectasis is present at the right lung base, new since 02/08/2025. The lungs are otherwise clear. Chest CT 01/2025 1. ?Multifocal linear opacities with mild associated architectural distortion in both lungs, may represent atelectasis/scarring as sequela of prior infection/inflammation. 2. ?Few scattered pulmonary nodules measuring up to 5 mm, may represent intrapulmonary lymph nodes. 3. ?No enlarged intrathoracic lymph nodes by CT size criteria identified. Assessment and Plan Final Anesthetic Review Family History of Problems with Anesthesia: No History of Problems with Anesthesia: No Documented by User: Yifan Nieto MD 11/20/25 07:32 [facility] Past Medical History Medical History HTN (hypertension) Crohn's disease Left ventricular systolic dysfunction GERD (gastroesophageal reflux disease) Sarcoidosis of lung Obesity Asthma Family History Family History Mother HTN (hypertension) Diabetes Anemia Maternal Grandmother Anemia Diabetes HTN (hypertension) Lung cancer Surgical History Surgical History History of bronchoscopy Hx of colonoscopy History of esophagogastroduodenoscopy (EGD) History of hand surgery S/P eye surgery Social History Social History Household Members: Significant Other and Children Are you a primary career development manager to a significant other at home: No Do you presently have visiting nurse or other home services: No Alcohol intake: never Patient Tobacco Use Status: Never used Tobacco Second Hand Smoke Exposure: No Use of substances other than those prescribed or required for medical reasons: No Have you been hit, kicked, punched, or otherwise hurt by someone within the past year? If so, by whom?: No Are you DNR?: No Advance Directives: No Advance Directives Information Provided: Yes Advance Directives on File: No Meds Allergies Allergy/AdvReac Type Severity Reaction Status Date / Time adalimumab (From Humira) Allergy Severe sarcoidosis Verified 10/24/25 14:49 bee venom protein (honey bee) Allergy Severe Anaphylaxis Verified 10/24/25 14:49 sacubitril (From Entresto) AdvReac Severe Numbness Verified 10/24/25 14:49 valsartan (From Entresto) AdvReac Severe Numbness Verified 10/24/25 14:49 Home Medications ?Medication ?Instructions ?Recorded ?Confirmed ?Last Taken ?Type albuterol sulfate 90 mcg/actuation 2 puff inhalation Q4H PRN wheezing 12/26/22 11/16/25 Unknown History aerosol inhaler (Ventolin HFA) blood pressure test kit-large #1 ea 12/26/22 10/24/25 Unknown History fluticasone furoate 100 1 inh inhalation DAILY 03/07/25 11/16/25 Unknown History mcg/actuation blister powder for inhalation (Arnuity Ellipta) epinephrine 0.3 mg/0.3 mL 0.3 ml IM ONCE 10/24/25 11/16/25 Unknown History injection, auto-injector hydrochlorothiazide 12.5 mg tablet 12.5 mg PO DAILY 10/24/25 11/16/25 Unknown History Exam Exam Date and Time: 11/20/25 Airway Mallampati Class: II TM Dist: >3cm Neck ROM: Full Heart: rrr Lungs: ctab diminished Assessment and Plan Assessment Anesthesia Assessment: Anesthesia Plan Discussed and Chart Reviewed Final Anesthetic Review NPO: Yes ASA Class: III Final Preanesthetic Review: No Changes in Pt Med Stat, Meds/Allgs Chart Reviewed, Consent Obtained/Reviewed and Anes Risks/Benef Reviewed Patient Risk: Intermediate Procedure Risk: Low Anesthetic Plan Anesthetic Plan: MAC: Disposition: Standard PACU
[2025-11-16 13:43] VITALS: BMI 43.1
[2025-11-20 06:37] VITALS: BP 122/78; PULSE 91; RESP 18; TEMP 36.2; O2SAT 96
[2025-11-20] MEDS: Lactated Ringers 1,000 ML 100 ML IVCONT (06:57)
--- NOTE | 2025-11-20 07:38 | PC.NURSE ---
took cellphone and wallet from belongings.
--- NOTE | 2025-11-20 08:16 | P.OP_ITS ---
Operative Note Operative Note Date of Service: 11/20/25 Narrative: Preoperative diagnosis: Left posterior shoulder lipoma Postoperative diagnosis: Same Procedure performed excision of left posterior shoulder lipoma Anesthesia conscious sedation with local infiltration Surgeon: Thanh Murillo MD Tower Excavator Operator: DEJAH Pérez Specimen: lipoma The patient is brought to the operating room. Conscious sedation was initiated and he was placed in the right lateral decubitus position. His arms and legs were cushioned appropriately and Venodyne boots were cycled. His left posterior shoulder region was then prepped and draped in standard sterile fashion. Once this was done approximately 40 cc of Marcaine with epinephrine were infused in the skin and soft tissue around the previously marked mass. Through this locally anesthetized site approximate 6 cm long transverse incision was created with a 15. Blade. Incision was carried down with cautery through Honorio's fascia until an encapsulated fatty mass measuring approximately 5 cm in diameter was encountered. Using a combination of blunt and sharp dissection it was completely mobilized from the surrounding soft tissue attachments and brought out of the wound. Small amount of adhesions to the underlying musculature was lysed with cautery. Once free the fatty tumor was passed off table the specimen. Hemostasis was achieved with cautery. The deep dermals were closed with interrupted buried fashion with a 0 Polysorb. 2-0 Polysorb was used for the superficial dermals and then a 4-0 Polysorb was used in a running subcuticular fashion for the final closure. Steri-Strips and sterile occlusive dressing was then applied. The patient was recovered from anesthesia, returned supine and transferred to the recovery room in good condition. The sponge instrument needle counts were correct at the end of the case and I p erformed all aspects of the case.
[2025-11-20 08:35] VITALS: BP 150/109; PULSE 90; RESP 14; TEMP 36.3; O2SAT 96
[2025-11-20 08:50] VITALS: BP 125/81; PULSE 84; RESP 20; O2SAT 94
[2025-11-20 08:56] VITALS: BP 127/82; PULSE 83; RESP 17; TEMP 36.6; O2SAT 98
== END 2025-11-20 09:18 | disposition home or self-care (01) ==
PROVIDERS: PCP Internal Medicine; Visit Provider Surgery
PROC: (CPT 23073; principal; 2025-11-20 07:30)
DX: D21.12 Benign neoplasm of connective and other soft tissue of left upper limb, including shoulder (principal); D86.0 Sarcoidosis of lung; J45.909 Unspecified asthma, uncomplicated; E66.9 Obesity, unspecified; G47.33 Obstructive sleep apnea (adult) (pediatric); Z68.41 Body mass index [BMI] 40.0-44.9, adult; Z79.51 Long term (current) use of inhaled steroids; Z79.899 Other long term (current) drug therapy; Z88.8 Allergy status to other drugs, medicaments and biological substances; Z91.030 Bee allergy status; Z98.890 Other specified postprocedural states
CPT/HCPCS: 23073; 88304; J0131; J0690; J1885; J2003; J2250; J2405; J2704; J3010

== ENCOUNTER → 2025-11-20 06:07 | Outpatient (BNV) | payer MEDICAID, SELFPAY | PROVIDERS: PCP Internal Medicine; Visit Provider Surgery | DX: D17.22 Benign lipomatous neoplasm of skin and subcutaneous tissue of left arm (principal) | CPT/HCPCS: 23071 ==